=== PATIENT | female | born 1945 | race Caucasian/White ===

== ENCOUNTER 2020-06-04 15:13 | Inpatient (IN) | payer OTHER ==
--- OUTSIDE RECORDS SUMMARY | 2020-06-04 15:15 | XMS REPORT | Continuity of Care Document ---
:1945 Author Organization [facility] t Address [address] [place] [address] Care Team Providers Name Role Phone Unavailable Unavailable Unavailable Problems This patient has no known problems. Allergies, Adverse Reactions, Alerts Allergy Allergy Status Severity Reaction(s) Onset Inactive Treating Comm ents Source Name Type Date Date Clinician Bactrim Adverse Active Info Not [facility] Medications Ordered Filled Start Stop Current Ordering Indication Dosage Frequency Signature Comments Components Source Medication Medication Date Date Medication? Clinician (SIG) Name Name ProAir HFA ProAir HFA Yes Naresh [address] [facility] needed [facility] Symbicort Symbicort Yes Naresh [address] [facility] Fish Oil Fish Oil Yes Naresh [address] [facility] Clonidine Clonidine Yes Naresh [address] [facility] HCl HCl [facility] Lisinopril Lisinopril Yes Naresh [address] [facility] Tradjenta Tradjenta Yes Naresh [address] [facility] Atorvastati Atorvastati Yes Naresh [address] [facility] n Calcium n Calcium [facility] Chlorthalid Chlorthalid Yes Naresh [address] [facility] one one [facility] in the [facility] Amlodipine Amlodipine Yes Naresh [address] [facility] Besylate Besylate [facility] Aspir-81 Aspir-81 Yes Naresh [address] [facility] Metoprolol Metoprolol Yes Naresh [address] [facility] Tartrate Tartrate [facility] with food L [facility] Simvastatin Simvastatin Yes Naresh [address] [facility] [place] in the [facility] Procedures This patient has no known procedures. Encounters Start End Encounter Admission Attending Care Care Encounter Source Date/Time Date/Time Type Type Clinicians Facility Department ID 2020-04-20 2020-04-20 Outpatient [facility] [id number] [facility] 2020-04-07 2020-04-07 Outpatient [facility] [id number] [facility] 2020-04-07 2020-04-07 Outpatient [facility] [id number] [facility]00 [facility] Outpat[facility] Clinics 2020-01-04 2020-01-04 Outpatient [facility] [id number] [facility]00 [facility] Outpat[facility] ent Clinics 2019-11-29 2019-11-29 Outpatient [facility] [id number] [facility]00 [facility] Outpat[facility] ent Clinics 2019-10-04 2019-10-04 [facility] [id number] [facility] 10:45:00 10:45:00 t [employer] [facility] Medicine Outpati ent Clinics 2019-10-04 2019-10-04 [facility] [id number] [facility] 08:22:00 08:22:00 t [employer] [facility] Out[facility] ent Clinics 2019-09-03 2019-09-03 [facility] [id number] [address] 08:35:00 08:35:00 [email or web address] [facility] Medicine Outpati ent Clinics 2019-06-07 2019-06-07 [facility] [id number] [facility] 11:15:00 11:15:00 [place] [email or web address] [facility] - [facility] l Medicine Outpati ent Clinics 2019-05-04 2019-05-04 [facility] [id number] 15:13:00 15:13:00 [place] [email or web address] [facility] [facility] - [facility] Medicine l Medicine Outpati ent Clinics 2019-03-04 2019-03-04 [facility] [id number] [address] 13:30:00 13:30:00 [place] [email or web address] [facility] - [facility] l Medicine Outpati ent Clinics 2019-02-24 2019-02-24 [facility] [id number] [facility] 16:45:00 16:45:00 [place] [employer] [facility] - [facility] Medicine l Medicine Outpati ent Clinics 2019-01-13 2019-01-13 [facility] [id number] 16[facility]40:00 16:40:00 [place] [employer] [facility] - [facility] Medicine l Medicine Outpati ent Clinics 2018-11-12 2018-11-12 [facility] [id number] 09:00:00 09:00:00 t [place] [employer] [facility] [email or web address] [facility] Medicine l Medicine Outpati ent Clinics 2018-11-07 2018-11-07 [facility] [id number] [facility] 13:23:00 13:23:00 [place] [email or web address] [facility] - [facility] Medicine l Medicine Outpati ent Clinics 2018-11-06 2018-11-06 [facility] [id number] 13:55:00 13:55:00 t [place] [email or web address] [facility] - Drive [facility] Medicine l Medicine Outpati ent Clinics 2018-06-26 2018-06-26 [facility] [id number] [facility] 14:54:00 14:54:00 [place] [facility] - [facility] Medicine l Medicine Outpati ent Clinics 2018-03-24 2018-03-24 [facility] [id number] [facility] 09:30:00 09:30:00 t [place] [employer] [facility] - [facility] Medicine Outpati ent Clinics 2018-03-12 2018-03-12 [facility] [id number] 09[facility]58:00 09:58:00 t [place] [facility] [email or web address] [facility] Medicine Outpati ent Clinics 2017-09-11 2017-09-11 [facility] [id number] [address] 11:00:00 11:00:00 t [place] [facility] [email or web address] [facility] Medicine Outpati ent Clinics 2017-09-10 2017-09-10 [facility] [id number] 10:24:00 10:24:00 [place] [facility] [email or web address] [facility] Medicine Outpati ent Clinics 2017-06-26 2017-06-26 [facility] [id number] 08:55:00 08:55:00 t [place] [facility] [email or web address] [facility] Medicine Outpati ent Clinics 2017-05-13 2017-05-13 [facility] [id number] [address] 09:41:00 09:41:00 t [place] [email or web address] [facility] Medicine Outpati ent Clinics 2017-05-05 2017-05-05 [facility] [id number] 10:04:00 10:04:00 [place] [email or web address] [facility] Medicine Outpati ent Clinics 2017-05-05 2017-05-05 [facility] [id number] 09:00:00 09:00:00 [place] [email or web address] [facility] Medicine Outpati ent Clinics Results This patient has no known results.
[2020-06-04 16:30] LABS: Absolute Lymphocytes (CBC) 0.9 K/uL (0.7-4.9); Basophils % 0.3 % (0-1.3); Hematocrit 36.1 % (36.0-45.0); Lymphocytes % 8.4 % (15.3-44.8); MPV 7.8 fL (7.6-11.3); RBC Red Blood Cell Count 4.37 M/uL (3.86-4.86)
[2020-06-04] MEDS ORDERED: METHYLPREDNISOLONE 125 MG INJ ONE (16:38)
[2020-06-04] MEDS ORDERED: PIPER/TAZO/NS 3.375gm 3.375 GM/100 ML BAG ONE (16:39)
[2020-06-04] MEDS ORDERED: TETANUS & DIPHTHERIA TOX,ADULT 0.5 ML VIAL ONE (16:39)
[2020-06-04] MEDS ORDERED: LEVALBUTEROL 1.25 MG/3 ML NEB ONE ×2 (16:39→19:38)
[2020-06-04] MEDS ORDERED: FAMOTIDINE 20 MG/2 ML VIAL IV ONE (16:39)
[2020-06-04] MEDS ORDERED: NA CHLORIDE 0.9% 500 ML ONE (16:39)
[2020-06-04] MEDS ORDERED: IPRATROPIUM BROM 0.5MG/2.5ML ONE (16:39)
[2020-06-04 16:42] LABS: Protime INR 0.95
--- NOTE | 2020-06-04 16:55 | RAD REPORT ---
EXAM DESCRIPTION: CT - Head C Spine Cap Wo Con - 06/04/2020 4:33 pm TECHNIQUE: Computed axial tomography of the head and cervical spine was obtained. Coronal and sagitt al reconstruction was performed Computed axial tomography of the chest, abdomen and pelvis was obtained. Contrast was not requested. All CT scans are performed using dose optimization technique as appropriate and may include automated exposure control or mA/KV adjustment according to patient size. CLINICAL HISTORY: Head and neck injury with chest and abdominal pain status post fall COMPARISON: CT 2016 chest and abdomen FINDINGS: An intracranial bleed is not seen. Mild low-density areas within periventricular, deep subcortical wh ite matter indicate ischemic changes secondary to small vessel disease The ventricles are normal in caliber. An extra-axial fluid collection is not noted. . Fluid within the sinuses/mastoids is not seen. 12 millimeter lesion within the left parietal scalp. A cervical fracture is not seen. No dislocation is noted. The evaluation of mediastinum, leydi, vessels, solid organs and bowel are limited secondary to the lac k of contrast administration. A mediastinal hematoma is not noted. A pleural effusion is not seen. A lung contusion is not present. Coronary arterial calcifications The liver,spleen, pancreas, adrenals,kidneys and bladder do not demonstrate a traumatic injury. 5.6 centimeter left renal mass unchanged from 2016. Small left renal cysts and hyperdense cyst. Atrophic right kidney with mild hydronephrosis and hydroureter. The bladder is distended. Atheroscler otic disease. Small right diaphragmatic hernia contains fat. Small umbilical hernia. 2.6 centimeter l ipoma within the cecum IMPRESSION: 1. No acute intracranial abnormality is seen. 14 millimeter left parietal scalp lesion is nonspecific . 2. A cervical fracture is not visualized. If the patient continues have symptoms to suggest intracran ial/spinal cord pathology MRI be recommended 3. No traumatic abnormality involving the chest/abdomen/pelvis. 4. Bladder distention with mild right hydronephrosis
--- NOTE | 2020-06-04 16:55 | RAD REPORT ---
EXAM DESCRIPTION: Shante Single View06/04/2020 4:26 pm CLINICAL HISTORY: cough COMPARISON: none FINDINGS: Lungs are hyperaerated. The lungs appear clear of acute infiltrate. The heart is normal size IMPRESSION: No acute abnormalities displayed
--- NOTE | 2020-06-04 16:56 | RAD REPORT ---
EXAM DESCRIPTION: RAD - Ankle Left 2 View - 06/04/2020 4:26 pm CLINICAL HISTORY: Left ankle pain FINDINGS: No acute fracture or dislocation is seen. Soft tissue swelling. Bony density adjacent to t he medial malleolus likely chronic. A limited two view series was obtained
--- NOTE | 2020-06-04 16:56 | RAD REPORT ---
EXAM DESCRIPTION: RAD - Foot Left 2 View - 06/04/2020 4:26 pm CLINICAL HISTORY: Left Foot pain FINDINGS: No fracture or dislocation is seen. Osteoporosis Large calcaneal spur. Limited 2 series obtained
--- NOTE | 2020-06-04 16:56 | RAD REPORT ---
EXAM DESCRIPTION: RAD - Ankle Right 2 View - 06/04/2020 4:27 pm CLINICAL HISTORY: Ankle pain FINDINGS: Limited two view series obtained No fracture or dislocation. Soft tissue swelling. 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
--- NOTE | 2020-06-04 16:57 | RAD REPORT ---
EXAM DESCRIPTION: RAD - Foot Right 2 View - 06/04/2020 4:26 pm CLINICAL HISTORY: Foot pain FINDINGS: A limited 2 series obtained. No fracture or dislocation noted. Moderate calcaneal spurs. Prominent spurs extend along the dorsal aspect of the midfoot
[2020-06-04 16:58] LABS: ALT/SGPT 21 U/L (12-78); AST/SGOT 39 U/L (15-37); Albumin 2.9 g/dL (3.4-5.0); Alkaline Phosphatase 105 U/L (45-117); BUN Blood Urea Nitrogen 44 mg/dL (7-18); Bicarbonate 20 mmol/L (21-32); Bilirubin Direct 0.3 mg/dL (0-0.2); Bilirubin Total 0.9 mg/dL (0.2-1.0); Creatine Phosphokinase 771 U/L (26-192); Glucose Level 126 mg/dL (74-106); Lipase 220 U/L (73-393); Magnesium 2.1 mg/dL (1.8-2.4); NT PRO-BNP 935 pg/mL (<450); Potassium 4.2 mmol/L (3.5-5.1); Protein, Total 7.4 g/dL (6.4-8.2); Troponin (Emerg Dept Use Only) < 0.02 ng/mL (0.0-0.045)
[2020-06-04 17:01] LABS: CKMB Creatine Kinase MB 15.9 ng/mL (0.3-3.6); Sodium Level 113 mmol/L (136-145)
--- NOTE | 2020-06-04 17:31 | EDPHYS ---
Physician Documentation [facility] Name: Norma Weiss Age: 75 yrs Sex: Female : 1945 Arrival Date: 06/04/2020 Time: 15:17 Bed 5 Private MD: ED Physician Chadwick Daily HPI: 06/04 15:54 This 75 yrs old Female presents to ER via EMS with complaints of Fall Injury. khris 15:54 Details of fall: The patient fell from an upright position, while walking. Onset: The khris symptoms/episode began/occurred 5 day(s) ago. Associated injuries: The patient sustained injury to the head, neck injury, right leg and left leg, decreased range of motion, painful injury. Severity of symptoms: At their worst the symptoms were mild, moderate, in the emergency department the symptoms are unchanged. The patient has not experienced similar symptoms in the past. Historical: - Allergies: 15:26 No Known Allergies; ca1 - Home Meds: 15:26 amlodipine 10 mg tab 1 tab once daily [Active]; clonidine HCl 0.3 mg Oral tab 1 tab ca1 three times a day [Active]; chlothalidone 25 mg daily 1 tab daily [Active]; lisinopril 20 mg Oral tab 1 tab twice a day [Active]; metoprolol tartrate 50 mg Oral tab 1 tab 2 times per day [Active]; aspirin 81 mg Oral TbEC 1 tab once daily [Active]; Ventolin HFA 90 mcg/actuation Nebulizer HFAA 1 puff every 4 hours [Active]; Symbicort inhalation inhalation [Active]; atorvastatin 40 mg oral tab 1 tab once daily [Active]; Tradjenta 5 mg oral tab 1 tab once daily [Active]; - PMHx: 15:26 COPD; Hyperlipidemia; Hypertension; ca1 - PSHx: 15:26 Hysterectomy; Appendectomy; ca1 - Immunization history:: Client reports receiving the 2nd dose of the Covid vaccine, Client reports receiving the 1st dose of the Covid vaccine, Pneumococcal vaccine is not up to date, Flu vaccine is not up to date. - Social history:: Smoking status: Patient reports the use of cigarette tobacco products, smokes one pack cigarettes per day. ROS: 15:56 Constitutional: Negative for fever, chills, and weight loss, Eyes: Negative for injury, khris pain, redness, and discharge, ENT: Negative for injury, pain, and discharge, Neck: Negative for injury, pain, and swelling, Cardiovascular: Negative for chest pain, palpitations, and edema, Abdomen/GI: Negative for abdominal pain, nausea, vomiting, diarrhea, and constipation, Back: Negative for injury and pain, : Negative for injury, bleeding, discharge, and swelling, Neuro: Negative for headache, weakness, numbness, tingling, and seizure, Psych: Negative for depression, anxiety, suicide ideation, homicidal ideation, and hallucinations, Allergy/Immunology: Negative for hives, rash, and allergies, Endocrine: Negative for neck swelling, polydipsia, polyuria, polyphagia, and marked weight changes, Hematologic/Lymphatic: Negative for swollen nodes, abnormal bleeding, and unusual bruising. 15:56 Respiratory: Positive for cough, shortness of breath, wheezing, expiratory. 15:56 MS/extremity: Positive for decreased range of motion, pain, swelling, tenderness, of the right leg and left leg. 15:56 Skin: Positive for avulsion, ecchymosis, erythema, swelling, ulceration, diffusely. Exam: 15:56 Constitutional: This is a well developed, well nourished patient who is awake, alert, khris and in no acute distress. Head/Face: Normocephalic, atraumatic. Eyes: Pupils equal round and reactive to light, extra-ocular motions intact. Lids and lashes normal. Conjunctiva and sclera are non-icteric and not injected. Cornea within normal limits. Periorbital areas with no swelling, redness, or edema. ENT: Nares patent. No nasal discharge, no septal abnormalities noted. Tympanic membranes are normal and external auditory canals are clear. Oropharynx with no redness, swelling, or masses, exudates, or evidence of obstruction, uvula midline. Mucous membranes moist. Neck: Trachea midline, no thyromegaly or masses palpated, and no cervical lymphadenopathy. Supple, full range of motion without nuchal rigidity, or vertebral point tenderness. No Meningismus. Chest/axilla: Normal chest wall appearance and motion. Nontender with no deformity. No lesions are appreciated. Cardiovascular: Regular rate and rhythm with a normal S1 and S2. No gallops, murmurs, or rubs. Normal PMI, no JVD. No pulse deficits. Back: No spinal tenderness. No costovertebral tenderness. Full range of motion. Female : Normal external genitalia. Neuro: Awake and alert, GCS 15, oriented to person, place, time, and situation. Cranial nerves II-XII grossly intact. Motor strength 5/5 in all extremities. Sensory grossly intact. Cerebellar exam normal. Normal gait. Psych: Awake, alert, with orientation to person, place and time. Behavior, mood, and affect are within normal limits. 15:56 Respiratory: the patient does not display signs of respiratory distress, Respirations: labored breathing, is not present, Breath sounds: bronchial sounds, decreased breath sounds, rhonchi, that are mild, are scattered, wheezing: expiratory Respiratory rate: 18 15:56 Musculoskeletal/extremity: ROM: full active range of motion, full passive range of motion, Circulation is intact in all extremities. Sensation intact. Compartment Syndrome exam of affected extremity: is normal. DVT Exam: negative Homans' sign noted on exam, no appreciated bluish discoloration, no erythema, no increased warmth, pain, swelling, tenderness. 16:08 ECG was reviewed by the Attending Physician. [facility] Vital Signs: 15:17 BP 118 / 71; Pulse 71; Resp 18 S; Temp 97.8; Pulse Ox 93% on 2 lpm NC; Weight 68.04 kg ca1 (R); Height 5 ft. 6 in. (167.64 cm) (R); Pain 2/10; 16:19 BP 110 / 70; Pulse 78; Resp 19; Pulse Ox 95% on R/A; jl7 17:03 BP 119 / 76; Pulse 75; Resp 22; Pulse Ox 100% on Nebulizer Mask; ca1 17:57 BP 141 / 84; Pulse 73; Resp 22 S; Pulse Ox 92% on 2 lpm NC; ca1 18:35 BP 98 / 61; Pulse 73; Resp 20 S; Pulse Ox 93% on 2 lpm NC; ca1 19:35 BP 109 / 53; Pulse 81; Resp 19; Temp 97.8; Pulse Ox 98% on 10% Nebulizer Mask; rr5 15:17 Body Mass Index 24.21 (68.04 kg, 167.64 cm) ca1 MDM: 15:28 Patient medically screened. [facility] 16:01 Differential diagnosis: fracture, sprain, cellulitis, Anemia Bronchitis CHF khris exacerbation, Chronic Obstructive Pulmonary Disease. Antibiotic administration: zosyn. Differential diagnosis: abrasion, closed head injury, contusion, sprain, strain. The patient's Roy Deep Vein Thrombosis Score was calculated as follows: Imm/Surg in last 4 wks (1.5 Pts) Total Score: 0-2 Pts- Low Risk. The patient's pulmonary embolism risk score was calculated as follows: Total Score: 0-2 points. This patient was found to be at low risk for a pulmonary embolism by using the Well's assessment criteria. Immunization status: Pneumococcal vaccine: Not up to date Influenza vaccine: Data reviewed: vital signs, nurses notes, lab test result(s), EKG, radiologic studies, CT scan, plain films. Data interpreted: monitoring coordinator: rate is 71 beats/min, rhythm is regular, Pulse oximetry: on room air is 93 %. Test interpretation: by ED physician or midlevel provider: ECG, plain radiologic studies. Counseling: I had a detailed discussion with the patient and/or guardian regarding: the historical points, exam findings, and any diagnostic results supporting the discharge/admit diagnosis, lab results, radiology results. 06/04 15:50 Order name: Basic Metabolic Panel 06/04 15:50 Order name: CBC with Diff 06/04 15:50 Order name: LFT's 06/04 15:50 Order name: Magnesium 06/04 15:50 Order name: NT PRO-BNP; Complete Time: 17:13 06/04 15:50 Order name: PT-INR; Complete Time: 17:13 06/04 15:50 Order name: Troponin (emerg Dept Use Only); Complete Time: 17:13 06/04 15:50 Order name: Lipase; Complete Time: 17:13 06/04 15:50 Order name: CK; Complete Time: 17:13 06/04 15:50 Order name: Ckmb; Complete Time: 17:13 [facility] 06/04 15:50 Order name: Urine Culture [facility] 06/04 15:51 Order name: Basic Metabolic Panel; Complete Time: 17:13 EDOR 06/04 15:51 Order name: CBC with Automated Diff; Complete Time: 16:50 [facility] 06/04 15:51 Order name: Liver (Hepatic) Function; Complete Time: 17:13 EDOR 06/04 15:51 Order name: Magnesium; Complete Time: 17:13 EDOR 06/04 15:54 Order name: Blood Culture Adult (2) [facility] 06/04 15:54 Order name: Lactate; Complete Time: 17:13 [facility] 06/04 17:16 Order name: Osmolality, Serum; Complete Time: 18:44 [facility] 06/04 17:16 Order name: Urine Osmolality; Complete Time: 18:44 [facility] 06/04 17:16 Order name: Urine Sodium Random; Complete Time: 18:05 [facility] 06/04 17:52 Order name: Urine Dipstick--Ancillary (enter results) 06/04 17:52 Order name: Urine Dipstick-Ancillary; Complete Time: 18:03 EDMS 06/04 18:07 Order name: Procalcitonin; Complete Time: 18:44 la 06/04 18:09 Order name: Cortisol; Complete Time: 18:44 [facility] 06/04 18:25 Order name: SARS-COV-2 RT PCR; Complete Time: 18:44 EDMS 06/04 18:46 Order name: ABG la1 06/04 19:18 Order name: BMP rr5 06/04 20:04 Order name: Basic Metabolic Panel; Complete Time: 20:46 EDMS 06/04 20:33 Order name: ABG Arterial Blood Gas; Complete Time: 20:46 EDMS 06/04 15:50 Order name: XRAY Chest (1 view); Complete Time: 17:13 [facility] 06/04 23:50 Order name: CREATININE WHOLE BLOOD; Complete Time: 02:50 EDMS 06/05 04:58 Order name: CBC with Automated Diff; Complete Time: 02:50 EDMS 06/05 05:23 Order name: Comprehensive Metabolic Panel; Complete Time: 02:50 EDMS 06/05 05:23 Order name: Phosphorus; Complete Time: 02:50 EDMS 06/05 05:23 Order name: Creatine Phosphokinase; Complete Time: 02:50 EDMS 06/05 05:23 Order name: CKMB Creatine Kinase MB; Complete Time: 02:50 EDMS 06/05 05:23 Order name: Lipid Profile; Complete Time: 02:50 EDMS 06/05 05:23 Order name: T4 Free; Complete Time: 02:50 EDMS 06/05 05:23 Order name: Magnesium; Complete Time: 02:50 EDMS 06/05 05:23 Order name: Thyroid Stimulating Hormone; Complete Time: 02:50 EDMS 06/05 07:16 Order name: CBC Smear Scan; Complete Time: 02:50 EDMS 06/05 09:45 Order name: Uric Acid; Complete Time: 02:50 EDMS 06/05 16:24 Order name: Basic Metabolic Panel; Complete Time: 02:50 EDMS 06/06 04:37 Order name: CBC with Automated Diff EDMS 06/06 04:58 Order name: Hemoglobin A1c EDMS 06/06 05:06 Order name: Comprehensive Metabolic Panel EDMS 06/06 05:06 Order name: Uric Acid EDMS 06/06 05:06 Order name: Phosphorus EDMS 06/06 05:06 Order name: Creatine Phosphokinase EDMS 06/06 05:06 Order name: CKMB Creatine Kinase MB EDMS 06/06 05:06 Order name: Magnesium EDMS 06/06 05:37 Order name: Urinalysis W/Microscopic EDMS 06/06 05:46 Order name: UR SODIUM EDMS 06/06 05:50 Order name: UR CREAT EDMS 06/06 05:54 Order name: Osmolality, Serum EDMS 06/06 06:14 Order name: Osmolality, Urine EDMS 06/06 07:30 Order name: CBC Smear Scan EDMS 06/04 15:50 Order name: EKG; Complete Time: 15:51 khris 06/04 15:50 Order name: Cardiac monitoring; Complete Time: 16:22 khris 06/04 15:50 Order name: EKG - Nurse/Tech; Complete Time: 16:22 khris 06/04 15:50 Order name: IV Saline Lock; Complete Time: 16:22 khris 06/04 15:50 Order name: Labs collected and sent; Complete Time: 16:22 khris 06/04 15:50 Order name: O2 Per Protocol; Complete Time: 16:22 khris 06/04 15:50 Order name: O2 Sat Monitoring; Complete Time: 16:22 khris 06/04 15:50 Order name: Urine Dipstick-Ancillary (obtain specimen); Complete Time: 17:53 khris 06/04 15:54 Order name: Wound dressing; Complete Time: 19:06 khris 06/04 15:54 Order name: Wound Care; Complete Time: 19:06 khris 06/04 15:58 Order name: Foot Right 2 View; Complete Time: 17:13 EDMS 06/04 15:58 Order name: Foot Left 2 View; Complete Time: 17:13 EDMS 06/04 15:59 Order name: Ankle Right 2 View; Complete Time: 17:13 EDMS 06/04 15:59 Order name: Ankle Left 2 View; Complete Time: 17:13 EDMS 06/04 16:23 Order name: Head C Spine Cap Wo Con; Complete Time: 17:13 EDMS 06/04 17:16 Order name: Douglass; Complete Time: 17:52 khris 06/04 17:16 Order name: Seizure Precautions; Complete Time: 17:52 khris 06/04 18:00 Order name: Misc. Order: recheck BMP at 1999, Call Dr. Wolff with results; Complete la1 Time: 21:47 EC:08 Rate is 71 beats/min. Rhythm is regular. QRS Blair is Normal. TX interval is prolonged khris at 242 msec. QRS interval is normal. QT interval is normal. No Q waves. T waves are Normal. No ST changes noted. Clinical impression: NSR w/ Non-specific ST/T Changes, 1st degree heart block, and No evidence of ischemia. Interpreted by me. Reviewed by me. Administered Medications: 16:40 Drug: Tetanus-Diphtheria Toxoid Adult 0.5 ml {A/C Tech: [employer]. Exp: ca1 06/03/2021. Lot #: [id number]. } Route: IM; Site: right deltoid; 18:01 Follow up: Response: No adverse reaction ca1 16:45 Drug: Xopenex (levalbuterol) 2.5 mg Route: Inhalation; ca1 16:45 Drug: AtroVENT (ipratropium) Aerosol 0.5 mg Route: Inhalation; ca1 16:46 Drug: NS 0.9% 500 ml Route: IV; Rate: bolus; Site: right antecubital; ca1 18:00 Follow up: Response: No adverse reaction; IV Status: Completed infusion; IV Intake: ca1 500ml 16:47 Drug: Pepcid (famotidine) 20 mg Route: IVP; Site: right antecubital; ca1 18:00 Follow up: Response: No adverse reaction ca1 16:50 Drug: SOLU-Medrol (methylPrednisoLONE) 125 mg Route: IVP; Site: right antecubital; ca1 18:01 Follow up: Response: No adverse reaction ca1 16:52 Drug: Zosyn 3.375 grams Route: IVPB; Infused Over: 60 mins; Site: right antecubital; ca1 18:00 Follow up: Response: No adverse reaction; IV Status: Completed infusion; IV Intake: ca1 100ml 17:49 Not Given (Duplicate Order): NS 0.9% 1000 ml IV at 125 ml/hr continuous khris 17:49 Drug: NS 0.9% 1000 ml Route: IV; Rate: 75 ml/hr; Site: right forearm; ca1 18:01 Follow up: Response: No adverse reaction; IV Status: Infusion continued upon admission ca1 17:54 Drug: Thiamine 100 mg Route: IV; Rate: bolus; Site: right antecubital; ca1 18:01 Follow up: Response: No adverse reaction; IV Status: Completed infusion ca1 19:34 Drug: Xopenex (levalbuterol) 2.5 mg Route: Inhalation; rr5 Disposition: 06/04/20 17:30 Hospitalization ordered by July Walter for Inpatient Admission. Preliminary diagnosis are Hypo-osmolality and hyponatremia, Acute kidney failure - insufficency, Retention of urine, Edema, unspecified, Blister (nonthermal) of ankle, Blister (nonthermal), left foot, Blister (nonthermal), right foot, Tobacco abuse counseling, Tobacco use, Chronic obstructive pulmonary disease, unspecified, Rhabdomyolysis, Urinary tract infection, site not specified. - Bed requested for [facility] ER HOLD. - Status is Inpatient Admission. ss - Condition is Serious. - Problem is new. - Symptoms have improved. Signatures: Dispatcher [employer] EDMS Chadwick Daily MD MD cha Smirch, Shelby RN RN ss Jakub Khan, PUBLIC HEALTH CLINICAL NURSE SPECIALIST-C PUBLIC HEALTH CLINICAL NURSE SPECIALIST-Cla1 Maura Alvarez RN RN cg Roque, Raymond, RN RN rr5 Alejandra Darling RN RN ca1 Corrections: (The following items were deleted from the chart) 15:58 15:51 Foot Right 3 View+RAD.RAD.BRZ ordered. EDMS EDMS 15:58 15:51 Foot Left 3 View+RAD.RAD.BRZ ordered. EDMS EDMS 15:59 15:52 Ankle Right 3 View+RAD.RAD.BRZ ordered. EDMS EDMS 15:59 15:52 Ankle Left 3 View+RAD.RAD.BRZ ordered. EDMS EDMS 16:23 15:54 Head C Spine CAP W Con+CT.RAD.BRZ ordered. [facility] EDOR 17:39 15:54 CORONAVIRUS+MR.LAB.BRZ ordered. [facility] 17:52 17:30 Hospitalization Ordered by Dennys Estevez MD for Inpatient Admission. Preliminary [facility] diagnosis is Hypo-osmolality and hyponatremia; Acute kidney failure - insufficency; Retention of urine; Edema, unspecified; Blister (nonthermal) of ankle; Blister (nonthermal), left foot; Blister (nonthermal), right foot; Tobacco abuse counseling; Tobacco use; Chronic obstructive pulmonary disease, unspecified; Rhabdomyolysis. Bed requested for Intensive Care Unit. Status is Inpatient Admission. Condition is Serious. Problem is new. Symptoms have improved. [facility] 17:59 17:52 06/04/2020 17:30 Hospitalization Ordered by Dennys Estevez MD for Inpatient khris Admission. Preliminary diagnosis is Hypo-osmolality and hyponatremia; Acute kidney failure - insufficency; Retention of urine; Edema, unspecified; Blister (nonthermal) of ankle; Blister (nonthermal), left foot; Blister (nonthermal), right foot; Tobacco abuse counseling; Tobacco use; Chronic obstructive pulmonary disease, unspecified; Rhabdomyolysis; Urinary tract infection, site not specified. Bed requested for Intensive Care Unit. Status is Inpatient Admission. Condition is Serious. Problem is new. Symptoms have improved. [facility] :34 17:59 06/04/2020 17:30 Hospitalization Ordered by July Walter MD for Inpatient Admission. Preliminary diagnosis is Hypo-osmolality and hyponatremia; Acute kidney failure - insufficency; Retention of urine; Edema, unspecified; Blister (nonthermal) of ankle; Blister (nonthermal), left foot; Blister (nonthermal), right foot; Tobacco abuse counseling; Tobacco use; Chronic obstructive pulmonary disease, unspecified; Rhabdomyolysis; Urinary tract infection, site not specified. Bed requested for Intensive Care Unit. Status is Inpatient Admission. Condition is Serious. Problem is new. Symptoms have improved. [facility] 06/06 09:28 06/04 19:34 06/04/2020 17:30 Hospitalization Ordered by July Walter MD for Inpatient Admission. Preliminary diagnosis is Hypo-osmolality and hyponatremia; Acute kidney failure - insufficency; Retention of urine; Edema, unspecified; Blister (nonthermal) of ankle; Blister (nonthermal), left foot; Blister (nonthermal), right foot; Tobacco abuse counseling; Tobacco use; Chronic obstructive pulmonary disease, unspecified; Rhabdomyolysis; Urinary tract infection, site not specified. Bed requested for [facility] ER HOLD. Status is Inpatient Admission. Condition is Serious. Problem is new. Symptoms have improved. cg
--- NOTE | 2020-06-04 17:31 | ER ---
Nurse's Notes [facility] Name: Norma Weiss Age: 75 yrs Sex: Female : 1945 Arrival Date: 06/04/2020 Time: 15:17 Bed 5 Private MD: Diagnosis: Hypo-osmolality and hyponatremia;Acute kidney failure-insufficency;Retention of urine;Edema, unspecified;Blister (nonthermal) of ankle;Blister (nonthermal), left foot;Blister (nonthermal), right foot;Tobacco abuse counseling;Tobacco use;Chronic obstructive pulmonary disease, unspecified;Rhabdomyolysis;Urinary tract infection, site not specified Presentation: 06/04 15:17 Chief complaint: Patient states: "fell when my ankles gave out on me 2 days ago, now I ca1 can't put pressure on them and walk on them" EMS states: Called for difficulty walking and pain on иван ankles after a fall 2 days [employer] PREPAR[employer]. Reports blisters on иван legs started after the fall. Upon arrival on scene pt SPO2 at 87% RA, pt has HX of COPD and NOT on home O2. O2 provided at 2lpm via NC, SPO2 went up to 97%. Denies SOB. Coronavirus screen: Client denies travel out of the [place] in the last 14 days. At this time, the client does not indicate any symptoms associated with coronavirus-19. Ebola Screen: Patient negative for fever greater than or equal to 101.5 degrees Fahrenheit, and additional compatible Ebola Virus Disease symptoms Patient denies exposure to infectious person. Patient denies travel to an Ebola-affected area in the 21 days before illness onset. No symptoms or risks identified at this time. Initial Sepsis Screen: Does the patient meet any 2 criteria? No. Patient's initial sepsis screen is negative. Does the patient have a suspected source of infection? No. Patient's initial sepsis screen is negative. Risk Assessment: Do you want to hurt yourself or someone else? Patient reports no desire to harm self or others. Onset of symptoms was June 04, 2020. 15:17 Method Of Arrival: [facility] ca1 15:17 Acuity: JEMAL 3 ca1 Triage Assessment: 15:26 General: PCP Dr. Naresh Gonzales. ca1 Historical: - Allergies: 15:26 No Known Allergies; ca1 - Home Meds: 15:26 amlodipine 10 mg tab 1 tab once daily [Active]; clonidine HCl 0.3 mg Oral tab 1 tab ca1 three times a day [Active]; chlothalidone 25 mg daily 1 tab daily [Active]; lisinopril 20 mg Oral tab 1 tab twice a day [Active]; metoprolol tartrate 50 mg Oral tab 1 tab 2 times per day [Active]; aspirin 81 mg Oral TbEC 1 tab once daily [Active]; Ventolin HFA 90 mcg/actuation Nebulizer HFAA 1 puff every 4 hours [Active]; Symbicort inhalation inhalation [Active]; atorvastatin 40 mg oral tab 1 tab once daily [Active]; Tradjenta 5 mg oral tab 1 tab once daily [Active]; - PMHx: 15:26 COPD; Hyperlipidemia; Hypertension; ca1 - PSHx: 15:26 Hysterectomy; Appendectomy; ca1 - Immunization history:: Client reports receiving the 2nd dose of the Covid vaccine, Client reports receiving the 1st dose of the Covid vaccine, Pneumococcal vaccine is not up to date, Flu vaccine is not up to date. - Social history:: Smoking status: Patient reports the use of cigarette tobacco products, smokes one pack cigarettes per day. Screenin:19 Abuse screen: Denies threats or abuse. Denies injuries from another. Nutritional jl7 screening: No deficits noted. Tuberculosis screening: No symptoms or risk factors identified. 16:19 Fall Risk Fall in past 12 months (25 points). No secondary diagnosis (0 pts). IV access jl7 (20 points). Ambulatory Aid- Furniture (30 pts.). Gait- Weak (10 pts.). Mental Status- Overestimates/Forgets Limitations (15 pts.). Total Peoples Fall Scale indicates High Risk Score (45 or more points). Fall prevention measures have been instituted. Side Rails Up X 2 Placed Close to Nursing Station Frequent Obs/Assessments Occuring Family Present and informed to notify staff if the need to leave the bedside As available patient and family educated on Fall Prevention Program and Strategies. Assessment: 16:20 General: Appears in no apparent distress. uncomfortable, unkempt, Behavior is calm, ca1 cooperative, appropriate for age. Pain: Complains of pain in right foot, left foot, right ankle and , L ankle left leg Pain currently is 3 out of 10 on a pain scale. Pain began 2-3 days ago. Aggravated by weight bearing. Neuro: Level of Consciousness is awake, alert, obeys commands, Oriented to person, place, time, situation. Cardiovascular: Heart tones S1 S2 present Capillary refill < 3 seconds Patient's skin is warm and dry. Rhythm is sinus rhythm. Respiratory: Reports cough that is Airway is patent Respiratory effort is even, unlabored, Respiratory pattern is regular, symmetrical, Breath sounds are clear bilaterally. Breath sounds are diminished bilaterally. GI: Abdomen is round non-distended, Bowel sounds present X 4 quads. Abd is soft and non tender X 4 quads. : No signs and/or symptoms were reported regarding the genitourinary system. EENT: No signs and/or symptoms were reported regarding the EENT system. Derm: Skin is fragile, is thin, with poor turgor has blisters on иван lower extremities. Wound noted right elbow and left arm Wound is greenish drainage noted on dressing applied from home. Musculoskeletal: Circulation, motion, and sensation intact. Capillary refill is > 3 seconds, in bilateral Swelling present in right foot and left foot. 17:03 Reassessment: Patient appears in no apparent distress at this time. Patient and/or ca1 family updated on plan of care and expected duration. Pain level reassessed. Patient is alert, oriented x 3, equal unlabored respirations, skin warm/dry/pink. 17:57 Reassessment: Patient appears in no apparent distress at this time. Patient and/or ca1 family updated on plan of care and expected duration. Pain level reassessed. Patient is alert, oriented x 3, equal unlabored respirations, skin warm/dry/pink. 18:35 Reassessment: Patient appears in no apparent distress at this time. Patient and/or ca1 family updated on plan of care and expected duration. Pain level reassessed. Patient is alert, oriented x 3, equal unlabored respirations, skin warm/dry/pink. Jakub Khan, PHYSICAL BIOCHEMIST at bedside. 19:35 General: Appears in no apparent distress. comfortable, Behavior is calm, cooperative, rr5 appropriate for age. Neuro: Level of Consciousness is awake, obeys commands, Oriented to person, place, time, situation. Cardiovascular: Capillary refill < 3 seconds Patient's skin is warm and dry. Edema. Respiratory: Airway is patent Respiratory effort is even, unlabored, Respiratory pattern is regular, symmetrical. Derm: Skin temperature is warm Wound noted right arm, left arm, right leg and left leg Wound is skin peeled bilateral forearm, blisters bilateral foot. Musculoskeletal: Capillary refill is > 3 seconds. 20:10 Reassessment: Patient appears in no apparent distress at this time. Patient is alert, rr5 oriented x 3, equal unlabored respirations, skin warm/dry/pink. 21:28 Reassessment: spoke to dr. healy over the phone relayed the NA 118, with telephone rr5 order decreased NS to 50 ml/Hr and repeat BMP at 0500H. Vital Signs: 15:17 BP 118 / 71; Pulse 71; Resp 18 S; Temp 97.8; Pulse Ox 93% on 2 lpm NC; Weight 68.04 kg ca1 (R); Height 5 ft. 6 in. (167.64 cm) (R); Pain 2/10; 16:19 BP 110 / 70; Pulse 78; Resp 19; Pulse Ox 95% on R/A; jl7 17:03 BP 119 / 76; Pulse 75; Resp 22; Pulse Ox 100% on Nebulizer Mask; ca1 17:57 BP 141 / 84; Pulse 73; Resp 22 S; Pulse Ox 92% on 2 lpm NC; ca1 18:35 BP 98 / 61; Pulse 73; Resp 20 S; Pulse Ox 93% on 2 lpm NC; ca1 19:35 BP 109 / 53; Pulse 81; Resp 19; Temp 97.8; Pulse Ox 98% on 10% Nebulizer Mask; rr5 15:17 Body Mass Index 24.21 (68.04 kg, 167.64 cm) ca1 ED Course: 15:17 Patient arrived in ED. ca1 15:23 Triage completed. ca1 15:26 Arm band placed on right wrist. ca1 15:27 Alejandra Darling, ITALO is Primary Nurse. ca1 15:28 Chadwick Daily MD is Attending Physician. khris 15:38 Patient has correct armband on for positive identification. Bed in low position. Call mh5 light in reach. Side rails up X2. Pillow given. loin puller on. Pulse ox on. NIBP on. 16:05 First set of blood cultures drawn by nm. Inserted saline lock: 20 gauge in right jl7 antecubital area, using aseptic technique. Blood collected. 16:10 Inserted saline lock: 20 gauge in left forearm, using aseptic technique. Blood jl7 collected. 16:10 Initial lab(s) drawn, by me, sent to lab. Second set of blood cultures drawn. jl7 16:20 No provider procedures requiring assistance completed. ca1 16:26 XRAY Chest (1 view) In Process Unspecified. EDMS 16:26 Foot Right 2 View In Process Unspecified. EDMS 16:26 Foot Left 2 View In Process Unspecified. EDMS 16:26 Ankle Right 2 View In Process Unspecified. EDMS 16:26 Ankle Left 2 View In Process Unspecified. EDMS 16:33 Head C Spine Cap Wo Con In Process Unspecified. EDMS 17:28 Dennys Estevez MD is Hospitalizing Provider. khris 17:51 Urine Sodium Random Sent. mh5 17:51 Urine Osmolality Sent. 5 17:52 Urine Culture Sent. 5 17:53 Urine Dipstick-Ancillary Sent. 5 17:53 Urine Dipstick--Ancillary (enter results) Sent. 5 17:56 Douglass cath inserted, using sterile technique, 18 Fr., by ED staff, balloon inflated, to ca1 gravity drainage, urine specimen collected. returned momo urine. Patient tolerated well. 17:59 July Walter MD is Hospitalizing Provider. khris 19:09 Wound care: to laceration located on palmar aspect of left forearm and right elbow was ca1 cleaned with Hibiclens, dressed with Neosporin, 4X4s, Patient tolerated well. 20:18 IV is patent, with fluids infusing freely, Patient admitted, IV remains in place. rv 06/05 08:13 BMP Sent. sv 08:14 Basic Metabolic Panel Sent. sv 08:14 CBC with Diff Sent. sv 08:14 LFT's Sent. sv 08:14 Magnesium Sent. sv 13:28 Primary Nurse role handed off by Alejandra Darling RN sv 13:28 Cecelia Barnett, ITALO is Primary Nurse. sv 19:23 Primary Nurse role handed off by Cecelia Barnett, ITALO 2 06/06 07:08 Chelsea Solorio, ITALO is Primary Nurse. jl7 Administered Medications: 06/04 16:40 Drug: Tetanus-Diphtheria Toxoid Adult 0.5 ml {Occupational Therapy Assist: [employer]. Exp: ca1 06/03/2021. Lot #: [id number]. } Route: IM; Site: right deltoid; 18:01 Follow up: Response: No adverse reaction ca1 16:45 Drug: Xopenex (levalbuterol) 2.5 mg Route: Inhalation; ca1 16:45 Drug: AtroVENT (ipratropium) Aerosol 0.5 mg Route: Inhalation; ca1 16:46 Drug: NS 0.9% 500 ml Route: IV; Rate: bolus; Site: right antecubital; ca1 18:00 Follow up: Response: No adverse reaction; IV Status: Completed infusion; IV Intake: ca1 500ml 16:47 Drug: Pepcid (famotidine) 20 mg Route: IVP; Site: right antecubital; ca1 18:00 Follow up: Response: No adverse reaction ca1 16:50 Drug: SOLU-Medrol (methylPrednisoLONE) 125 mg Route: IVP; Site: right antecubital; ca1 18:01 Follow up: Response: No adverse reaction ca1 16:52 Drug: Zosyn 3.375 grams Route: IVPB; Infused Over: 60 mins; Site: right antecubital; ca1 18:00 Follow up: Response: No adverse reaction; IV Status: Completed infusion; IV Intake: ca1 100ml 17:49 Not Given (Duplicate Order): NS 0.9% 1000 ml IV at 125 ml/hr continuous khris 17:49 Drug: NS 0.9% 1000 ml Route: IV; Rate: 75 ml/hr; Site: right forearm; ca1 18:01 Follow up: Response: No adverse reaction; IV Status: Infusion continued upon admission ca1 17:54 Drug: Thiamine 100 mg Route: IV; Rate: bolus; Site: right antecubital; ca1 18:01 Follow up: Response: No adverse reaction; IV Status: Completed infusion ca1 19:34 Drug: Xopenex (levalbuterol) 2.5 mg Route: Inhalation; rr5 Intake: 18:00 IV: 500ml; Total: 500ml. ca1 18:00 IV: 100ml; Total: 600ml. ca1 Output: 21:26 Urine: 1100ml (Douglass); Total: 1100ml. rr5 Outcome: 17:30 Decision to Hospitalize by Provider. khris 20:18 Admitted to ER Hold. Please see [facility] for further documentation. rv 20:18 Condition: stable 20:18 Instructed on the need for admit. 06/06 09:28 Patient left the ED. Signatures: Dispatcher [employer] EDElsa Santos, RN RN Chadwick Park MD MD cha Smirch, Shelby, RN RN ss Martinez, Maria 5 Chelsea Solorio RN RN jl7 Dave Forman mw2 Rambo Zeng RN RN rv Diego Mehta RN RN rr5 AcobAlejandra RN RN ca1 Corrections: (The following items were deleted from the chart) 06/04 18:00 17:57 BP 141 / 84; Pulse 73bpm; Resp 22bpm; Spontaneous; Pulse Ox 95% 2 lpm Nasal ca1 Cannula; ca1
[2020-06-04 18:02] LABS: Urine Blood TRACE (Negative); Urine Glucose NEGATIVE (Negative); Urine Protein 2+ (Negative); Urine pH 5.5 (5.0-7.0)
[2020-06-04] MEDS ORDERED: NA CHLORIDE 0.9% 1,000 ML ONE (18:04)
[2020-06-04] MEDS ORDERED: THIAMINE 200 MG/2 ML INJ ONE (18:10)
[2020-06-04] MEDS ORDERED: ONDANSETRON 4 MG/2 ML VIAL IV PRN (20:10)
[2020-06-04] MEDS ORDERED: NA CHLORIDE 0.9% 1,000 ML IV SCH ×2 (20:10→22:00)
[2020-06-04] MEDS ORDERED: ACETAMINOPHEN 500 MG TAB PO PRN (20:10)
[2020-06-04 20:31] LABS: Arterial Blood Carboxyhemoglob 2.8 % (0-1.5); Blood Gas Oxyhemoglobin 87.9 % (94-97); Blood O2 Saturation 91.6 % (92-98.5)
--- NOTE | 2020-06-04 20:57 | P.HP ---
Certification for Inpatient Patient admitted to: Inpatient Patient will require the following post-hospital care: None Practitioner: I am a practitioner with admitting privileges, knowledge of patient current condition, hospital course, and medical plan of care. Services: Services provided to patient in accordance with Admission requirements found in Title 42 Section 412.3 of the Code of Federal Regulations Patient History Date of Service: 06/04/20 Reason for admission: Hyponatremia History of Present Illness: 75-year-old female with history of COPD, hyperlipidemia, hypertension presents emergency department for fall. Patient reportedly fell approximately 2 days prior and having pain in both of her ankles/lower extremities, patient also noted to be 87% on room air upon EMS arrival. Patient evaluated in the emergency department, labs significant for sodium 113 chloride 83, CO2 20, glucose 126 creatinine 1.84 GFR 27 BUN 40 serum osmolality 260 urine is nitrite positive pro calcitonin mildly elevated 0.49 B and P 985 CPK 771 CK MB 15.9 urine sodium 32 cortisol 55.[address] head C-spine chest abdomen pelvis without contrast demonstrates nonspecific scalp lesion, 5.6 cm left renal mass which is unchanged from previous 2016 study, atrophic right kidney with mild hydronephrosis and hydroureter with distended bladder. 2.6 cm lipoma within the cecum. Patient had Douglass catheter placed with 1 L of retained urine output, patient was given 500 cc normal saline bolus and Nephrology was consulted, fluids were switched over to NS at 75 cc/hour, repeat chemistry obtained 2 hr later demonstrates sodium 118 CO2 18 creatinine 1.78 ABG obtained demonstrating pH 7.3 PO2 69 HCO3 16.9. Patient currently lives alone and has been having difficulty getting around, family concern for well-being. Patient reportedly with poor p.o. intake taking in very little food/fluids at home. Patient does not consume alcohol, was aware of renal mass, has been told in the past is likely cancer is at that time patient declined any further workup/surgical/chemotherapy. Patient reported that time that she did not want to be on dialysis. Mass has not changed on CT. ED provider wishes to admit for further evaluation and management. Allergies No Known Allergies Allergy (Unverified 11/12/11 19:53) - Past Medical/Surgical History -: COPD -: Hypertension -: Hyperlipidemia -: Unknown Psychosocial/ Personal History: Patient lives alone, is unemployed - Family History Sister -: Cancer Notes: Rheumatoid arthritis - Social History Smoking Status: Heavy Tobacco smoker (>10 cigarettes/day) Alcohol use: No CD- Drugs: No Caffeine use: Yes Place of Residence: Home Review of Systems General: Weakness, Malaise Respiratory: Cough, Shortness of Breath, Wheezing Physical Examination - Vital Signs Temperature: 98 F Blood Pressure: 114/56 Pulse: 82 Respirations: 16 Pulse Ox (%): 96 - Physical Exam General: Alert, In no apparent distress, Oriented x3, Other (Drowsy, lethargic) HEENT: Other (Mucous membranes dry) Neck: Supple Respiratory: Expiratory wheezes (Bilaterally), Rhonchi/gurgles Cardiovascular: No edema, Normal S1 S2 Capillary refill: <2 Seconds Gastrointestinal: Normal bowel sounds, Soft and benign, No tenderness, No masses, No rebound Musculoskeletal: No contractures, No erythema, No tenderness Integumentary: Other (Blisters and venous stasis ulcerations noted to bilateral lower extremities without significant surrounding cellulitis.) Neurological: Abnormal gait (Patient with extremely weak 8 reported by family members, has not been able to get out and do much over the course the last few days) - Studies Laboratory Data (last 24 hrs) 06/04/20 16:10: PT 10.9, INR 0.95 06/04/20 16:10: WBC 11.10 H, Hgb 12.1, Hct 36.1, Plt Count 406 06/04/20 16:10: Sodium 113 L*, Potassium 4.2, BUN 44 H, Creatinine 1.84 H, Glucose 126 H, Magnesium 2.1, Total Bilirubin 0.9, AST 39 H, ALT 21, Alkaline Phosphatase 105, Lipase 220 Assessment and Plan - Plan Assessment Severe hyponatremia-likely chronic Acute on chronic respiratory failure with hypoxia Metabolic acidosis likely secondary ATN/PRAVEEN Urinary tract infection, urinary retention Hypertension, hyperlipidemia Weakness and deconditioning Tobacco abuse Plan Severe hyponatremia-likely chronic: Nephrology consulted for assistance in managing severe hyponatremia, patient had visit in 2017 with sodium of 213 when she left AMA and did not seek further treatment. Patient likely with chronic hyponatremia, possibly related to dietary intake, family reports patient eats very little throughout the day, patient does not admit to drinking alcohol/beer. Full workup pending. Repeat chemistry shows 4 point improvement in sodium from 114-118. At this time plan is for continuation of normal saline at 75 cc/hour, appreciate further guidance from nephrology in this regard. DVT prophylaxis with Lovenox. Acute on chronic respiratory failure with hypoxia: Patient smokes approximately 3 packs per day, unaware of home medications. Patient 88% on room air, ABG ordered. Continue with IV steroids, nebs, inhalers. Daily room air saturations, patient may require home oxygen at time of discharge. Metabolic acidosis likely secondary ATN/PRAVEEN: Nephrology consulted, continue with normal saline at 75 cc/hour. Adjust as stated by nephrology. Patient with some underlying CKD. Trend CPK/CK MB levels. Urinary tract infection, urinary retention: Douglass catheter in place, draining freely. Hypertension, hyperlipidemia: Obtain and continue home medications as appropriate. Weakness and deconditioning: Physical therapy consulted for evaluation. Patient lives alone and is very weak. Tobacco abuse: 3 pack per day smoker, Nicoderm patch ordered, discussed need for tobacco cessation. Discharge Plan: Home Plan to discharge in: Greater than 2 days - Advance Directives Does patient have a Living Will: No Does patient have a Durable POA for Healthcare: No - Code Status/Comfort Care Code Status Assessed: Yes (Full code) Critical Care: No Time Spent Managing Pts Care (In Minutes): 55
[2020-06-04] MEDS: DULERA 100/5 (MOMETASONE/FORMOTEROL) INHALER IH SCH (21:00)
[2020-06-04] MEDS ORDERED: DULERA 100/5 (MOMETASONE/FORMOTEROL) INHALER IH ONE (22:24)
[2020-06-05] MEDS ORDERED: METHYLPREDNISOLONE 125 MG INJ IV SCH (01:00)
[2020-06-05 04:56] LABS: Absolute Lymphocytes (CBC) 0.3 K/uL (0.7-4.9); Basophils % 0.1 % (0-1.3); Hematocrit 33.8 % (36.0-45.0); Lymphocytes % 3.7 % (15.3-44.8); MPV 7.6 fL (7.6-11.3); RBC Red Blood Cell Count 4.08 M/uL (3.86-4.86)
[2020-06-05 05:19] LABS: Albumin 2.4 g/dL (3.4-5.0); Bilirubin Total 0.6 mg/dL (0.2-1.0); Magnesium 2.1 mg/dL (1.8-2.4); Phosphorus 5.1 mg/dL (2.5-4.9); Potassium 4.1 mmol/L (3.5-5.1); Protein, Total 6.5 g/dL (6.4-8.2); Thyroid Stimulating Hormone 0.443 uIU/mL (0.360-3.740)
[2020-06-05 05:22] LABS: CKMB Creatine Kinase MB 17.5 ng/mL (0.3-3.6)
[2020-06-05 07:16] LABS: Blood Morphology Comment NOT SEEN (NOT SEEN); Platelet Estimate ADEQ; White Blood Cell Scan OK (OK)
--- NOTE | 2020-06-05 07:53 | EKG ---
Test Date: 2020-06-04 Test Time: 15:52:05 Cellar Pumper: MICHEL MEASUREMENT RESULTS: Intervals: Rate: 68 DC: 242 QRSD: 100 QT: 434 QTc: 461 [place]: P: 29 DC: 242 QRS: 51 T: 89 INTERPRETIVE STATEMENTS: Sinus rhythm with 1st degree AV block with premature atrial complexes Low voltage QRS Possible Inferior infarct, age undetermined Abnormal ECG Compared to ECG 08/24/2016 12:01:01 Atrial premature complex(es) now present Low QRS voltage now present Ventricular premature complex(es) no longer present Myocardial infarct finding still present Electronically Signed On 06-05-20 07:51:58 CDT by John York
[2020-06-05] MEDS ORDERED: FUROSEMIDE 20 MG/ 2ML VIAL IV ONE (08:31)
--- NOTE | 2020-06-05 08:31 | P.CNS ---
Date of Consult: 06/05/20 Chief Complaint: Hyponatremia History of Present Illness: Patient is 75 years of age with a history of COPD hypertension presented to the emergency room with hypoxemia lower extremity edema denies any diarrhea vomiting nausea this found to be very hypernatremic eyes any prior history of hyponatremia he is very alert oriented responsive cooperative denies diuretic abuse Patient has a mass in the kidney chronic Aliza by herself very heavy smoker Allergies No Known Allergies Allergy (Unverified 11/12/11 19:53) - Past Medical/Surgical History -: COPD -: Hypertension -: Hyperlipidemia -: Unknown Psychosocial/ Personal History: Patient lives alone, is unemployed - Family History Sister Medical History: Cancer Notes: Rheumatoid arthritis - Social History Alcohol use: No CD- Drugs: No Caffeine use: Yes Place of Residence: Home Review of Systems General: Weakness Respiratory: Cough, Shortness of Breath Physical Examination Temp Pulse Resp BP Pulse Ox 98 F 85 19 109/52 L 96 06/04/20 21:03 06/05/20 05:00 06/05/20 05:00 06/05/20 05:00 06/05/20 05:00 General: Alert, Oriented x3 Respiratory: Expiratory wheezes Cardiovascular: Normal S1 S2, Edema Gastrointestinal: Normal bowel sounds, Soft and benign Laboratory Data (last 24 hrs) 06/04/20 16:10: PT 10.9, INR 0.95 06/04/20 16:10: WBC 11.10 H, Hgb 12.1, Hct 36.1, Plt Count 406 06/04/20 16:10: Sodium 113 L*, Potassium 4.2, BUN 44 H, Creatinine 1.84 H, Glucose 126 H, Magnesium 2.1, Total Bilirubin 0.9, AST 39 H, ALT 21, Alkaline Phosphatase 105, Lipase 220 - Problems (1) Hyponatremia Current Visit: Yes Status: Acute Plan: Patient is 75 years of age admitted with severe hyponatremia patient was started on low-dose of IV fluids hyponatremia slightly worse urine his sodium is greater than 30 urine urine osmolalities also greater than 100 tsh is normal will Dc IV fluids start on diuretics will try and fluid restriction Lasix it appears patient has had hyponatremia before 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 prednisone and bronchodilators Qualifiers: Emphysema type: unspecified
[2020-06-05] MEDS ORDERED: NA CHLORIDE 0.9% 1,000 ML ONE (08:56)
[2020-06-05] MEDS: NICOTINE 21 MG/PAT TD SCH (09:00)
[2020-06-05] MEDS ORDERED: CEFTRIAXONE/SWI 1gm 1 GM/50 ML SYR IV SCH (09:00)
[2020-06-05] MEDS: predniSONE 20 MG TAB PO SCH ×2 (09:00→21:00)
[2020-06-05] MEDS: DULERA 100/5 (MOMETASONE/FORMOTEROL) INHALER IH SCH ×2 (09:00→21:00)
[2020-06-05] MEDS: ENOXAPARIN 30 MG/0.3 ML SQ SCH (09:00)
[2020-06-05] MEDS: ALBUTEROL 2.5 MG/3 ML NEB SOL NEB SCH ×3 (09:34→19:40)
[2020-06-05] MEDS: IPRATROPIUM BROM 0.5MG/2.5ML NEB SCH ×3 (09:34→19:40)
[2020-06-05] MEDS ORDERED: IPRATROPIUM BROM 0.5MG/2.5ML ONE ×2 (09:51→19:59)
[2020-06-05] MEDS ORDERED: ALBUTEROL 2.5 MG/3 ML NEB SOL ONE ×2 (09:51→19:59)
[2020-06-05] MEDS ORDERED: PNEUMOCOCCAL VACCINE 0.5 ML IMVAC ONE (10:00)
[2020-06-05] MEDS ORDERED: FUROSEMIDE 20 MG/ 2ML VIAL ONE (10:28)
[2020-06-05] MEDS ORDERED: ENOXAPARIN 30 MG/0.3 ML SQ ONE (10:28)
[2020-06-05] MEDS ORDERED: NICOTINE 21 MG/PAT TD ONE (10:28)
[2020-06-05] MEDS ORDERED: predniSONE 20 MG TAB ONE ×2 (10:46→21:43)
--- NOTE | 2020-06-05 15:09 | P.CNS ---
Date of Consult: 06/05/20 Reason for Consult: Hyponatremia Requesting Physician: July Walter Chief Complaint: Hyponatremia History of Present Illness: 75-year-old female with history of COPD, hyperlipidemia, hypertension presents emergency department for fall. Patient reportedly fell approximately 2 days prior and having pain in both of her ankles/lower extremities, patient also noted to be 87% on room air upon EMS arrival. Patient evaluated in the emergency department, labs significant for sodium 113 chloride 83, CO2 20, glucose 126 creatinine 1.84 GFR 27 BUN 40 serum osmolality 260 urine is nitrite positive pro calcitonin mildly elevated 0.49 B and P 985 CPK 771 CK MB 15.9 urine sodium 32 cortisol 55.[address] head C-spine chest abdomen pelvis without contrast demonstrates nonspecific scalp lesion, 5.6 cm le ft renal mass which is unchanged from previous 2016 study, atrophic right kidney with mild hydronephrosis and hydroureter with distended bladder. 2.6 cm lipoma within the cecum. Patient had Douglass catheter placed with 1 L of retained urine output, patient was given 500 cc normal saline bolus and Nephrology was consulted, fluids were switched over to NS at 75 cc/hour, repeat chemistry obtained 2 hr later demonstrates sodium 118 CO2 18 creatinine 1.78 ABG obtained demonstrating pH 7.3 PO2 69 HCO3 16.9. Patient currently lives alone and has been having difficulty getting around, family concern for well-being. Patient reportedly with poor p.o. intake taking in very little food/fluids at home. Patient does not consume alcohol, was aware of renal mass, has been told in the past is likely cancer is at that time patient declined any further workup/surgical/chemotherapy. Patient reported that time that she did not want to be on dialysis. Mass has not changed on CT. ED provider wishes to admit for further evaluation and management. 15:54 This 75 yrs old Female presents to ER via EMS with complaints of Fall Injury. khris 15:54 Details of fall: The patient fell from an upright position, while walking. Onset: The khris symptoms/episode began/occurred 5 day(s) ago. Associated injuries: The patient sustained injury to the head, neck injury, right leg and left leg, decreased range of motion, painful injury. Severity of symptoms: At their worst the symptoms were mild, moderate, in the emergency department the symptoms are unchanged. The patient has not experienced similar symptoms in the past. Allergies No Known Allergies Allergy (Unverified 11/12/11 19:53) Home medications list reviewed: Yes - Past Medical/Surgical History -: COPD -: Hypertension -: Hyperlipidemia -: Unknown Psychosocial/ Personal History: Patient lives alone, is unemployed - Family History Sister Medical History: Cancer Notes: Rheumatoid arthritis - Social History Alcohol use: No CD- Drugs: No Caffeine use: Yes Place of Residence: Home Review of Systems 10-point ROS is otherwise unremarkable General: Weakness, Malaise Neurological: Weakness Physical Examination Temp Pulse Resp BP Pulse Ox 98.2 F 105 H 18 142/64 H 91 06/05/20 13:00 06/05/20 13:00 06/05/20 13:00 06/05/20 13:00 06/05/20 13:00 General: In no apparent distress, Cooperative HEENT: Atraumatic Neck: Supple Respiratory: Clear to auscultation bilaterally Cardiovascular: No edema, Regular rate/rhythm Gastrointestinal: Soft and benign, Non-distended Musculoskeletal: No clubbing, No contractures Integumentary: No rashes, No cyanosis, Skin lesion Neurological: Normal speech Laboratory Data (last 24 hrs) 06/04/20 16:10: PT 10.9, INR 0.95 06/04/20 16:10: WBC 11.10 H, Hgb 12.1, Hct 36.1, Plt Count 406 06/04/20 16:10: Sodium 113 L*, Potassium 4.2, BUN 44 H, Creatinine 1.84 H, Glucose 126 H, Magnesium 2.1, Total Bilirubin 0.9, AST 39 H, ALT 21, Alkaline Phosphatase 105, Lipase 220 Imagings Data: EXAM DESCRIPTION: Shante Single View06/04/2020 4:26 pm CLINICAL HISTORY: cough COMPARISON: none FINDINGS: Lungs are hyperaerated. The lungs appear clear of acute infiltrate. The heart is normal size IMPRESSION: No acute abnormalities displayed Conclusions/Impression: A/P: Continue the current POC and Medications other than the changes listed. AM Labs PRN. Recommend daily weight. Please see the orders for complete details. PRAVEEN may be due to hypovolemia CKD III with proteinuria -No NSAIDs Hyponatremia -Start oral sodium bicarb -Oral free water restriction. Acidosis -Start oral bicarb Hypocalcemia -Start Cholecalciferol HTN with CKD -Monitor BP DM II with CKD -Recommend RISS -Check A1C Moderate malnutrition -Encourage nutrition with protein supplementation Anemia in chronic illness -Monitor H&H Thank you kindly for the consultation Case reviewed with Dr. Walter
[2020-06-05 16:23] LABS: Potassium 3.7 mmol/L (3.5-5.1)
[2020-06-05] MEDS: SODIUM BICARB 325 MG TAB PO SCH ×2 (21:00→22:00)
[2020-06-06] MEDS: ALBUTEROL 2.5 MG/3 ML NEB SOL NEB SCH ×5 (01:30→19:40)
[2020-06-06] MEDS: IPRATROPIUM BROM 0.5MG/2.5ML NEB SCH ×4 (01:30→19:40)
[2020-06-06] MEDS ORDERED: IPRATROPIUM BROM 0.5MG/2.5ML ONE ×5 (01:41→19:41)
[2020-06-06] MEDS ORDERED: ALBUTEROL 2.5 MG/3 ML NEB SOL ONE ×3 (01:41→19:40)
[2020-06-06 04:32] LABS: Absolute Lymphocytes (CBC) 0.3 K/uL (0.7-4.9); Basophils % 0.1 % (0-1.3); Hematocrit 32.7 % (36.0-45.0); Lymphocytes % 1.5 % (15.3-44.8); MPV 7.4 fL (7.6-11.3); RBC Red Blood Cell Count 3.97 M/uL (3.86-4.86)
[2020-06-06 05:04] LABS: Albumin 2.6 g/dL (3.4-5.0); Bilirubin Total 0.7 mg/dL (0.2-1.0); Magnesium 2.2 mg/dL (1.8-2.4); Phosphorus 3.3 mg/dL (2.5-4.9); Potassium 3.6 mmol/L (3.5-5.1); Protein, Total 6.7 g/dL (6.4-8.2); Uric Acid 11.2 mg/dL (2.6-6.0)
[2020-06-06 05:06] LABS: CKMB Creatine Kinase MB 11.4 ng/mL (0.3-3.6)
[2020-06-06 05:35] LABS: Urine Appearance CLEAR (Clear); Urine Color YELLOW (Yellow)
[2020-06-06 05:36] LABS: Urine Bilirubin NEGATIVE (Negataive); Urine Blood 2+ (Negative); Urine Glucose NEGATIVE (Negative); Urine Protein 1+ (Negative); Urine pH 5.5 (5.0-7.0)
[2020-06-06 06:18] LABS: Urine Bacteria <20 /HPF (<20); Urine RBC <5 /HPF (NONE SEEN); Urine Urothelial Cells <5 /HPF (NONE SEEN)
[2020-06-06 07:29] LABS: Blood Morphology Comment NOT SEEN (NOT SEEN); Platelet Estimate ADEQ; White Blood Cell Scan OK (OK)
[2020-06-06] MEDS ORDERED: METHYLPREDNISOLONE 125 MG INJ ONE (08:13)
[2020-06-06] MEDS ORDERED: ENOXAPARIN 30 MG/0.3 ML SQ ONE (08:14)
[2020-06-06] MEDS ORDERED: POTASSIUM CL SA 10 MEQ TAB PO ONE ×2 (08:14→09:00)
[2020-06-06] MEDS ORDERED: NICOTINE 21 MG/PAT TD ONE (08:14)
--- NOTE | 2020-06-06 08:41 | P.PN ---
Subjective Date of Service: 06/05/20 Patient is disheveled and multiple stage I ulcers. Also with mass on the left side of her face which she has not gotten any evaluated. This looks like a squamous cell carcinoma. May need to get ENT to see her during hospitalization. Sodium is slowly correcting. Patient is very disheveled and I am not really shore who is caring for her but she will probably need to go to a prison facility as she does not seem like she is able to care for herself. Her nails in her nailbeds are very dirty and long. She has dirt on her face and her chest. She is very unkept. Review of Systems 10-point ROS is otherwise unremarkable Physical Examination - Vital Signs Temperature: 99.4 F Blood Pressure: 151/73 Pulse: 114 Respirations: 19 Pulse Ox (%): 95 - Physical Exam General: Alert, In no apparent distress, Oriented x3 Respiratory: Clear to auscultation bilaterally, Normal air movement Cardiovascular: Regular rate/rhythm, Normal S1 S2, No murmurs Gastrointestinal: Normal bowel sounds, Soft and benign, Non-distended, No tenderness Musculoskeletal: No clubbing, No swelling, No tenderness Neurological: Sensation intact, Cranial nerves 3-12 intact - Studies Medications List Reviewed: Yes Assessment & Plan - Problems (Diagnosis) (1) COPD (chronic obstructive pulmonary disease) Current Visit: Yes Status: Acute Qualifiers: Emphysema type: unspecified (2) Hyponatremia Current Visit: Yes Status: Acute - Advance Directives Does patient have a Living Will: No Does patient have a Durable POA for Healthcare: No
--- NOTE | 2020-06-06 08:42 | P.PN ---
Date of Service: 06/06/20 Subjective Patient is doing a little better. Moved over to the intensive care unit. More awake and alert. Family at bedside. Spoke to son and addressed long-term status. Plan to do rehab after discharge. She really is not at a point which she can take your worsen. Review of Systems 10-point ROS is otherwise unremarkable Physical Examination - Vital Signs reviewed - Physical Exam General: Alert, In no apparent distress, Oriented x3 Respiratory: Clear to auscultation bilaterally, Normal air movement Cardiovascular: Regular rate/rhythm, Normal S1 S2, No murmurs Gastrointestinal: Normal bowel sounds, Soft and benign, Non-distended, No tenderness Musculoskeletal: No clubbing, No swelling, No tenderness Neurological: Sensation intact, Cranial nerves 3-12 intact - Studies Medications List Reviewed: Yes Assessment & Plan - Problems (Diagnosis) (1) COPD (chronic obstructive pulmonary disease) Current Visit: Yes Status: Acute Qualifiers: Emphysema type: unspecified (2) Hyponatremia Current Visit: Yes Status: Acute - Advance Directives Does patient have a Living Will: No Does patient have a Durable POA for Healthcare: No Plan: 1. Continue with gentle hydration with saline 2. Continue with nebs, steroids, and antibiotics 3. Physical therapy evaluation 4. GI and DVT prophylaxis
[2020-06-06] MEDS: ENOXAPARIN 30 MG/0.3 ML SQ SCH (09:00)
[2020-06-06] MEDS: DULERA 100/5 (MOMETASONE/FORMOTEROL) INHALER IH SCH ×2 (09:00→22:14)
[2020-06-06] MEDS: NICOTINE 21 MG/PAT TD SCH (09:00)
[2020-06-06] MEDS: predniSONE 20 MG TAB PO SCH ×2 (09:00→22:00)
[2020-06-06] MEDS ORDERED: predniSONE 20 MG TAB ONE ×2 (09:20→22:02)
[2020-06-06] MEDS ORDERED: VITAMIN D 1000 UNIT TAB ONE (09:28)
[2020-06-06] MEDS: SODIUM BICARB 325 MG TAB PO SCH ×4 (12:55→22:00)
[2020-06-06] MEDS: VITAMIN D 5,000 UNIT CAP PO SCH (12:56)
[2020-06-06] MEDS ORDERED: METOPROLOL TARTRATE 5 MG/5 ML INJ IV STA (13:15)
[2020-06-06 14:49] LABS: Urine Blood Trace-lysed (Negative); Urine Glucose Negative (Negative); Urine Protein 2+ (Negative); Urine pH 5.5 (5.0-7.0)
--- NOTE | 2020-06-06 19:46 | P.PN ---
Date of Service: 06/06/20 Vital Signs Temp Pulse Resp BP Pulse Ox 98.2 F 114 H 18 126/55 L 85 L 06/06/20 16:00 06/06/20 18:00 06/06/20 18:00 06/06/20 18:00 06/06/20 18:00 Medications Acetaminophen (Acetaminophen 500 Mg Tab) 500 mg PO Q4HP PRN PRN Reason: TEMP > 100' F Albuterol Sulfate (Albuterol 2.5 Mg/3 Ml Neb Pinky) 2.5 mg NEB [id number] [facility] Last Admin: 06/06/20 14:08 Dose: 2.5 mg Documented by: Cholecalciferol (Vitamin D 5,000 Unit Cap) 5,000 unit PO DAILY [facility] Last Admin: 06/06/20 12:56 Dose: 5,000 unit Documented by: Enoxaparin Sodium (Enoxaparin 30 Mg/0.3 Ml) 30 mg SQ DAILY [facility] Last Admin: 06/06/20 09:00 Dose: 30 mg Documented by: Ipratropium [place] (Ipratropium Brom 0.5mg/2.5ml) 0.5 mg NEB [id number] [facility] Last Admin: 06/06/20 14:08 Dose: 0.5 mg Documented by: Nicotine (Nicotine 21 Mg/Pat) 21 mg TD DAILY [facility] Last Admin: 06/06/20 09:00 Dose: Not Given Documented by: Ondansetron HCl (Ondansetron 4 Mg/2 Ml Vial) 4 mg IV Q6HP PRN PRN Reason: NAUSEA / VOMITING Prednisone (Prednisone 20 Mg Tab) 20 mg PO BID [facility] Last Admin: 06/06/20 09:00 Dose: 20 mg Documented by: Sodium Bicarbonate (Sodium Bicarb 325 Mg Tab) 650 mg PO QID [facility] Last Admin: 06/06/20 17:55 Dose: 650 mg Documented by: Sodium Chloride (Flush Normal Saline 10 Ml) 10 ml IV BID [facility] Last Admin: 06/06/20 09:00 Dose: 10 ml Documented by: Lab Results (last 24 hrs) 06/04/20 17:49: Urine pH 5.5, Ur Specific Plain 1.020, Glucose (UA)(Auto) Negative, Urine Ketones Negative, Urine Blood Trace-lysed H, Urine Nitrite Positive H, Ur Leukocyte Esterase Negative, Urine Total Protein 2+ H Microbiology Results 06/04/20 17:45 Clean Catch Urine [place] Count - Preliminary No growth. 06/04/20 17:45 Clean Catch Urine - Preliminary No growth. 06/04/20 16:05 Blood - Blood Aerobic Blood Culture - Preliminary No growth in 24 hours. 06/04/20 16:05 Blood - Blood Anaerobic Blood Culture - Preliminary No growth in 24 hours. 06/04/20 16:05 Blood - Blood Aerobic Blood Culture - Preliminary No growth in 24 hours. 06/04/20 16:05 Blood - Blood Anaerobic Blood Culture - Preliminary No growth in 24 hours. Assessment/ Plan: Nephrology No acute cardiac or pulmonary complaints. No CP or SOB. No acute events overnight. Vitals, medications, blood work and imaging reviewed in the chart. General: In no apparent distress, Cooperative HEENT: Atraumatic Neck: Supple Respiratory: Clear to auscultation bilaterally Cardiovascular: No edema, Regular rate/rhythm Gastrointestinal: Soft and benign, Non-distended Musculoskeletal: No clubbing, No contractures Integumentary: No rashes, No cyanosis, Skin lesion Neurological: Normal speech Laboratory Data (last 24 hrs) 06/04/20 16:10: PT 10.9, INR 0.95 06/04/20 16:10: WBC 11.10 H, Hgb 12.1, Hct 36.1, Plt Count 406 06/04/20 16:10: Sodium 113 L*, Potassium 4.2, BUN 44 H, Creatinine 1.84 H, Glucose 126 H, Magnesium 2.1, Total Bilirubin 0.9, AST 39 H, ALT 21, Alkaline Phosphatase 105, Lipase 220 Imagings Data: EXAM DESCRIPTION: Shante Single View06/04/2020 4:26 pm CLINICAL HISTORY: cough COMPARISON: none FINDINGS: Lungs are hyperaerated. The lungs appear clear of acute infiltrate. The heart is normal size IMPRESSION: No acute abnormalities displayed Conclusions/Impression: A/P: Continue the current POC and Medications other than the changes listed. AM Labs PRN. Recommend daily weight. Please see the orders for complete details. PRAVEEN may be due to hypovolemia CKD III with proteinuria -No NSAIDs Atrophic right kidney with hydronephrosis and hydroureter -Start flomax -Consider a urology evaluation Stable 5.6cm left renal mass -Consider a urology evaluation Hyponatremia -Continue oral sodium bicarb -Oral free water restriction -Send repeat BMP this evening Acidosis -Continue oral bicarb Hypocalcemia -Continue Cholecalciferol HTN with CKD complicated by tachycardia -Start metoprolol 12.5mg bid DM II with CKD -Recommend RISS Moderate malnutrition -Encourage nutrition with protein supplementation Anemia in chronic illness -Monitor H&H CT - Head C Spine Cap Wo Con - 06/04/2020 4:33 pm TECHNIQUE: Computed axial tomography of the head and cervical spine was obtained. Coronal and sagittal reconstruction was performed Computed axial tomography of the chest, abdomen and pelvis was obtained. Contrast was not requested. All CT scans are performed using dose optimization technique as appropriate and may include automated exposure control or mA/KV adjustment according to patient size. CLINICAL HISTORY: Head and neck injury with chest and abdominal pain status post fall COMPARISON: CT 2016 chest and abdomen FINDINGS: An intracranial bleed is not seen. Mild low-density areas within periventricular, deep subcortical white matter indicate ischemic changes secondary to small vessel disea The ventricles are normal in caliber. An extra-axial fluid collection is not noted. . Fluid within the sinuses/mastoids is not seen. 12 millimeter lesion within the left parietal scalp. A cervical fracture is not seen. No dislocation is noted. The evaluation of mediastinum, leydi, vessels, solid organs and bowel are limited secondary to the lack of contrast administration. A mediastinal hematoma is not noted. A pleural effusion is not seen. A lung contusion is not present. Coronary arterial calcifications The liver,spleen, pancreas, adrenals,kidneys and bladder do not demonstrate a traumatic injury. 5.6 centimeter left renal mass unchanged from 2016. Small left renal cysts and hyperdense cyst. Atrophic right kidney with mild hydronephrosis and hydroureter. The bladder is distended. Atherosclerotic disease. Small right diaphragmatic hernia contains fat. Small umbilical hernia. 2.6 centimeter lipoma within the cecum IMPRESSION: 1. No acute intracranial abnormality is seen. 14 millimeter left parietal scalp lesion is nonspecific. 2. A cervical fracture is not visualized. If the patient continues have symptoms to suggest intracranial/spinal cord pathology MRI be recommended 3. No traumatic abnormality involving the chest/abdomen/pelvis. 4. Bladder distention with mild right hydronephrosis
[2020-06-06 20:36] LABS: Potassium 3.8 mmol/L (3.5-5.1)
[2020-06-06] MEDS: TAMSULOSIN 0.4 MG SR CAP PO SCH (22:00)
[2020-06-06] MEDS ORDERED: TAMSULOSIN 0.4 MG SR CAP ONE (22:02)
[2020-06-07] MEDS: IPRATROPIUM BROM 0.5MG/2.5ML NEB SCH ×4 (02:45→19:15)
[2020-06-07] MEDS: ALBUTEROL 2.5 MG/3 ML NEB SOL NEB SCH ×4 (02:45→19:15)
[2020-06-07] MEDS ORDERED: ALBUTEROL 2.5 MG/3 ML NEB SOL ONE ×4 (03:05→19:36)
[2020-06-07] MEDS ORDERED: IPRATROPIUM BROM 0.5MG/2.5ML ONE ×4 (03:05→19:36)
[2020-06-07 05:17] LABS: Albumin 2.8 g/dL (3.4-5.0); Bilirubin Total 0.6 mg/dL (0.2-1.0); CKMB Creatine Kinase MB 4.1 ng/mL (0.3-3.6); Magnesium 2.4 mg/dL (1.8-2.4); Phosphorus 2.5 mg/dL (2.5-4.9); Potassium 3.5 mmol/L (3.5-5.1); Protein, Total 6.7 g/dL (6.4-8.2)
[2020-06-07 05:29] LABS: Absolute Lymphocytes (CBC) 0.3 K/uL (0.7-4.9); Basophils % 0.1 % (0-1.3); Hematocrit 36.4 % (36.0-45.0); Lymphocytes % 1.9 % (15.3-44.8); MPV 7.5 fL (7.6-11.3); RBC Red Blood Cell Count 4.37 M/uL (3.86-4.86)
[2020-06-07] MEDS ORDERED: METOPROLOL TAR 25 MG TAB ONE ×3 (05:57→17:54)
[2020-06-07] MEDS ORDERED: METOPROLOL TAR 25 MG TAB PO SCH (06:00)
[2020-06-07] MEDS ORDERED: POTASSIUM 25 MEQ EFFERV TAB PO ONE (09:00)
[2020-06-07] MEDS: predniSONE 20 MG TAB PO SCH ×2 (09:18→21:39)
[2020-06-07] MEDS: ENOXAPARIN 30 MG/0.3 ML SQ SCH (09:18)
[2020-06-07] MEDS: NICOTINE 21 MG/PAT TD SCH (09:19)
[2020-06-07] MEDS: TAMSULOSIN 0.4 MG SR CAP PO SCH ×2 (09:20→21:38)
[2020-06-07] MEDS: DULERA 100/5 (MOMETASONE/FORMOTEROL) INHALER IH SCH (09:21)
[2020-06-07] MEDS ORDERED: NICOTINE 21 MG/PAT TD ONE (09:26)
[2020-06-07] MEDS ORDERED: ENOXAPARIN 30 MG/0.3 ML SQ ONE (09:27)
[2020-06-07] MEDS ORDERED: POTASSIUM 25 MEQ EFFERV TAB ONE (09:27)
[2020-06-07] MEDS ORDERED: TAMSULOSIN 0.4 MG SR CAP ONE ×2 (09:27→21:43)
[2020-06-07] MEDS ORDERED: predniSONE 20 MG TAB ONE ×2 (09:29→21:51)
[2020-06-07] MEDS ORDERED: VITAMIN D 1000 UNIT TAB ONE (09:29)
[2020-06-07] MEDS: VITAMIN D 5,000 UNIT CAP PO SCH (09:46)
[2020-06-07] MEDS: SODIUM BICARB 325 MG TAB PO SCH ×3 (09:47→17:42)
[2020-06-07] MEDS ORDERED: METOPROLOL TAR 25 MG TAB PO ONE (09:52)
--- NOTE | 2020-06-07 11:28 | RAD REPORT ---
EXAM DESCRIPTION: RAD - Chest Single View - 06/07/2020 11:16 am CLINICAL HISTORY: desat Chest pain. COMPARISON: Chest Single View dated 06/04/2020; Chest Pa And Lat (2 Views) dated 08/24/2016; Chest Pa A nd Lat (2 Views) dated 11/23/2015; CHEST PA AND LAT 2 VIEW dated 12/15/2012 FINDINGS: Portable technique limits examination quality. Mild interstitial pulmonary edema is seen. The heart is mildly enlarged in size. Probable small left pleural effusion. IMPRESSION: Mild CHF.
[2020-06-07 11:40] LABS: Arterial Blood Carboxyhemoglob 1.2 % (0-1.5); Blood Gas Oxyhemoglobin 85.9 % (94-97)
[2020-06-07] MEDS ORDERED: FUROSEMIDE 20 MG/ 2ML VIAL IV ONE (11:49)
[2020-06-07] MEDS ORDERED: DIPHENHYDRAMINE 50 MG/ML VIAL IV ONE (12:10)
[2020-06-07] MEDS: ALBUMIN HUMAN 25% 100 ML IV ONE (13:16)
[2020-06-07] MEDS ORDERED: FUROSEMIDE 20 MG/ 2ML VIAL ONE (13:31)
[2020-06-07] MEDS ORDERED: ALBUMIN HUMAN 25% 100 ML IV ONE (13:31)
--- NOTE | 2020-06-07 17:11 | P.PN ---
Date of Service: 06/07/20 Subjective Patient continues to gradually improve. Patient with no new complaints. Patient more awake alert. However, her oxygen requirements did increase. Chest x-ray revealed pulmonary edema. Patient was diuresed and clinically appearing to be doing better. Review of Systems 10-point ROS is otherwise unremarkable Physical Examination - Vital Signs reviewed - Physical Exam General: Alert, In no apparent distress, Oriented x3 Respiratory: Clear to auscultation bilaterally, Normal air movement Cardiovascular: Regular rate/rhythm, Normal S1 S2, No murmurs Gastrointestinal: Normal bowel sounds, Soft and benign, Non-distended, No tenderness Musculoskeletal: No clubbing, No swelling, No tenderness Neurological: Sensation intact, Cranial nerves 3-12 intact - Studies Medications List Reviewed: Yes Assessment & Plan - Problems (Diagnosis) (1) COPD (chronic obstructive pulmonary disease) Current Visit: Yes Status: Acute Qualifiers: Emphysema type: unspecified (2) Hyponatremia Current Visit: Yes Status: Acute Plan: 1. Continue with albuterol and Atrovent nebs 2. Continue with IV steroids 3. Sodium has been corrected. 4. Strength still diminished. Continue with physical therapy 5. Echocardiogram pending 6. Repeat chest x-ray in the morning 7. Hep-Lock IV; strict intake and output 8. GI and DVT prophylaxis
[2020-06-07] MEDS: METOPROLOL TAR 50 MG TAB PO SCH (17:45)
[2020-06-07] MEDS ORDERED: METOPROLOL TAR 50 MG TAB ONE (18:03)
--- NOTE | 2020-06-07 19:33 | P.PN ---
Date of Service: 06/07/20 Vital Signs Temp Pulse Resp BP Pulse Ox 97.7 F 99 H 24 H 119/69 88 L 06/07/20 16:00 06/07/20 18:00 06/07/20 18:00 06/07/20 18:00 06/07/20 18:00 Medications Acetaminophen (Acetaminophen 500 Mg Tab) 500 mg PO Q4HP PRN PRN Reason: TEMP > 100' F Albuterol Sulfate (Albuterol 2.5 Mg/3 Ml Neb Pinky) 2.5 mg NEB [id number] REPLACED BY [facility] Last Admin: 06/07/20 13:15 Dose: 2.5 mg Documented by: Cholecalciferol (Vitamin D 5,000 Unit Cap) 5,000 unit PO DAILY REPLACED BY [facility] Last Admin: 06/07/20 09:46 Dose: 5,000 unit Documented by: Enoxaparin Sodium (Enoxaparin 30 Mg/0.3 Ml) 30 mg SQ DAILY REPLACED BY [facility] Last Admin: 06/07/20 09:18 Dose: 30 mg Documented by: Ipratropium [place] (Ipratropium Brom 0.5mg/2.5ml) 0.5 mg NEB [id number] REPLACED BY [facility] Last Admin: 06/07/20 13:15 Dose: 0.5 mg Documented by: Metoprolol Tartrate (Metoprolol Tar 50 Mg Tab) 50 mg PO BID 6AM 6PM REPLACED BY [facility] Last Admin: 06/07/20 17:45 Dose: 50 mg Documented by: Nicotine (Nicotine 21 Mg/Pat) 21 mg TD DAILY REPLACED BY [facility] Last Admin: 06/07/20 09:19 Dose: 21 mg Documented by: Ondansetron HCl (Ondansetron 4 Mg/2 Ml Vial) 4 mg IV Q6HP PRN PRN Reason: NAUSEA / VOMITING Prednisone (Prednisone 20 Mg Tab) 20 mg PO BID REPLACED BY [facility] Last Admin: 06/07/20 09:18 Dose: 20 mg Documented by: Sodium Chloride (Flush Normal Saline 10 Ml) 10 ml IV BID REPLACED BY [facility] Last Admin: 06/07/20 09:22 Dose: 10 ml Documented by: Tamsulosin HCl (Tamsulosin 0.4 Mg Sr Cap) 0.4 mg PO BID REPLACED BY [facility] Last Admin: 06/07/20 09:20 Dose: 0.4 mg Documented by: Microbiology Results 06/04/20 17:45 Clean Catch Urine [place] Count - Final No growth. 06/04/20 17:45 Clean Catch Urine - Final No growth. 06/04/20 16:05 Blood - Blood Aerobic Blood Culture - Preliminary No growth in 24 hours. 06/04/20 16:05 Blood - Blood Anaerobic Blood Culture - Preliminary No growth in 24 hours. 06/04/20 16:05 Blood - Blood Aerobic Blood Culture - Preliminary No growth in 24 hours. 06/04/20 16:05 Blood - Blood Anaerobic Blood Culture - Preliminary No growth in 24 hours. Assessment/ Plan: Nephrology No acute cardiac or pulmonary complaints. No CP or SOB. No acute events overnight. Vitals, medications, blood work and imaging reviewed in the chart. General: In no apparent distress, Cooperative HEENT: Atraumatic Neck: Supple Respiratory: Clear to auscultation bilaterally Cardiovascular: No edema, Regular rate/rhythm Gastrointestinal: Soft and benign, Non-distended Musculoskeletal: No clubbing, No contractures Integumentary: No rashes, No cyanosis, Skin lesion Neurological: Normal speech Laboratory Data (last 24 hrs) 06/04/20 16:10: PT 10.9, INR 0.95 06/04/20 16:10: WBC 11.10 H, Hgb 12.1, Hct 36.1, Plt Count 406 06/04/20 16:10: Sodium 113 L*, Potassium 4.2, BUN 44 H, Creatinine 1.84 H, Glucose 126 H, Magnesium 2.1, Total Bilirubin 0.9, AST 39 H, ALT 21, Alkaline Phosphatase 105, Lipase 220 Imagings Data: EXAM DESCRIPTION: Shante Single View06/04/2020 4:26 pm CLINICAL HISTORY: cough COMPARISON: none FINDINGS: Lungs are hyperaerated. The lungs appear clear of acute infiltrate. The heart is normal size IMPRESSION: No acute abnormalities displayed Conclusions/Impression: A/P: Continue the current POC and Medications other than the changes listed. AM Labs PRN. Recommend daily weight. Please see the orders for complete details. PRAVEEN may be due to hypovolemia CKD III with proteinuria -No NSAIDs Atrophic right kidney with hydronephrosis and hydroureter -Continue flomax -Consider a urology evaluation Stable 5.6cm left renal mass -Consider a urology evaluation Hyponatremia -Discontinue oral sodium bicarb -Oral free water restriction Hypokalemia -Replete oral potassium Acidosis -Discontinue oral bicarb Hypocalcemia/ Hypercalcemia -Continue Cholecalciferol HTN with CKD complicated by tachycardia -Agree with metoprolol 50mg bid DM II with CKD -Recommend RISS Moderate malnutrition -Encourage nutrition with protein supplementation Anemia in chronic illness -Monitor H&H Case reviewed with Dr. Walter CT - Head C Spine Cap Wo Con - 06/04/2020 4:33 pm TECHNIQUE: Computed axial tomography of the head and cervical spine was obtained. Coronal and sagittal reconstruction was performed Computed axial tomography of the chest, abdomen and pelvis was obtained. Contrast was not requested. All CT scans are performed using dose optimization technique as appropriate and may include automated exposure control or mA/KV adjustment according to patient size. CLINICAL HISTORY: Head and neck injury with chest and abdominal pain status post fall COMPARISON: CT 2016 chest and abdomen FINDINGS: An intracranial bleed is not seen. Mild low-density areas within periventricular, deep subcortical white matter indicate ischemic changes secondary to small vessel disea The ventricles are normal in caliber. An extra-axial fluid collection is not noted. . Fluid within the sinuses/mastoids is not seen. 12 millimeter lesion within the left parietal scalp. A cervical fracture is not seen. No dislocation is noted. The evaluation of mediastinum, leydi, vessels, solid organs and bowel are limited secondary to the lack of contrast administration. A mediastinal hematoma is not noted. A pleural effusion is not seen. A lung contusion is not present. Coronary arterial calcifications The liver,spleen, pancreas, adrenals,kidneys and bladder do not demonstrate a traumatic injury. 5.6 centimeter left renal mass unchanged from 2016. Small left renal cysts and hyperdense cyst. Atrophic right kidney with mild hydronephrosis and hydroureter. The bladder is distended. Atherosclerotic disease. Small right diaphragmatic hernia contains fat. Small umbilical hernia. 2.6 centimeter lipoma within the cecum IMPRESSION: 1. No acute intracranial abnormality is seen. 14 millimeter left parietal scalp lesion is nonspecific. 2. A cervical fracture is not visualized. If the patient continues have symptoms to suggest intracranial/spinal cord pathology MRI be recommended 3. No traumatic abnormality involving the chest/abdomen/pelvis. 4. Bladder distention with mild right hydronephrosis
[2020-06-08] MEDS: ALBUTEROL 2.5 MG/3 ML NEB SOL NEB SCH ×2 (01:30→08:06)
[2020-06-08] MEDS: IPRATROPIUM BROM 0.5MG/2.5ML NEB SCH ×4 (01:30→21:22)
[2020-06-08] MEDS ORDERED: ALBUTEROL 2.5 MG/3 ML NEB SOL ONE ×2 (01:43→08:24)
[2020-06-08] MEDS ORDERED: IPRATROPIUM BROM 0.5MG/2.5ML ONE ×4 (01:44→19:38)
[2020-06-08] MEDS ORDERED: METOPROLOL TAR 50 MG TAB ONE (05:12)
[2020-06-08] MEDS: METOPROLOL TAR 50 MG TAB PO SCH ×2 (05:42→17:01)
[2020-06-08 06:48] LABS: Absolute Lymphocytes (CBC) 0.3 K/uL (0.7-4.9); Basophils % 0.1 % (0-1.3); Hematocrit 34.9 % (36.0-45.0); Lymphocytes % 1.7 % (15.3-44.8); RBC Red Blood Cell Count 4.21 M/uL (3.86-4.86)
[2020-06-08 07:06] LABS: Magnesium 2.4 mg/dL (1.8-2.4); Potassium 3.9 mmol/L (3.5-5.1)
--- NOTE | 2020-06-08 07:33 | RAD REPORT ---
EXAM DESCRIPTION: RAD - Chest Single View - 06/08/2020 5:42 am CLINICAL HISTORY: pneumonia COMPARISON: Portable June 07 TECHNIQUE: AP portable chest image was obtained 06/08/2020 5:42 am . FINDINGS: Lung volumes are reduced from prior imaging. Ill-defined left base opacification remains w ith the left hemidiaphragm and portions of the left heart border obscured. This is a stable presentat ion. Heart and vasculature are normal. No measurable pleural effusion and no pneumothorax. No acute bony abnormality seen. No acute aortic findings suspected. IMPRESSION: Stable chest examination as detailed.
[2020-06-08] MEDS ORDERED: POTASS/SODIUM PHOSPHATE 1 PKT POWD.PACK PO ONE (08:00)
--- NOTE | 2020-06-08 08:48 | P.PN ---
Subjective Date of Service: 06/08/20 Chief Complaint: COPD exacerbation Subjective: Improving (Patient is improving still hypoxic non and developed a few atrial fibrillation) Review of Systems General: Weakness Respiratory: Shortness of Breath Physical Examination - Vital Signs Temperature: 96.5 F Blood Pressure: 137/105 Pulse: 94 Respirations: 20 Pulse Ox (%): 94 - Physical Exam General: Alert, Oriented x3 Respiratory: Expiratory wheezes Cardiovascular: No edema, Irregular heart rate/rhythm - Studies Microbiology Data (last 24 hrs): 06/04/20 17:45 Clean Catch Urine [place] Count - Final No growth. 06/04/20 17:45 Clean Catch Urine - Final No growth. Medications List Reviewed: Yes Assessment & Plan - Problems (Diagnosis) (1) COPD (chronic obstructive pulmonary disease) Current Visit: Yes Status: Acute Plan: Patient is a heavy smoker has COPD exacerbation continue with bronchodilators patient is on chlorthalidone Dc be contributing to hypernatremia also ovoid CAMILA- inhibitor Qualifiers: Emphysema type: unspecified (2) Atrial fibrillation Current Visit: Yes Status: Acute Plan: New onset fully anti coagulated Dc albuterol rate control for the echocardiogram pending thyroid function tests is normal in transfer to the floor titrate sat to 88-90%
[2020-06-08] MEDS ORDERED: AMLODIPINE 10 MG TAB PO SCH (09:00)
[2020-06-08] MEDS ORDERED: CLONIDINE HCL 0.3 MG TAB PO SCH (09:00)
[2020-06-08] MEDS: Linagliptin [Tradjenta] 5 MG Tablet PO SCH (09:00)
[2020-06-08] MEDS: NICOTINE 21 MG/PAT TD SCH (09:01)
[2020-06-08] MEDS: VITAMIN D 5,000 UNIT CAP PO SCH (09:02)
[2020-06-08] MEDS: predniSONE 20 MG TAB PO SCH ×2 (09:03→21:37)
[2020-06-08] MEDS: TAMSULOSIN 0.4 MG SR CAP PO SCH ×2 (09:03→21:37)
[2020-06-08] MEDS: DULERA 100/5 (MOMETASONE/FORMOTEROL) INHALER IH SCH ×3 (09:04→22:03)
[2020-06-08] MEDS ORDERED: TAMSULOSIN 0.4 MG SR CAP ONE ×2 (09:15→21:55)
[2020-06-08] MEDS ORDERED: NICOTINE 21 MG/PAT TD ONE (09:15)
[2020-06-08] MEDS ORDERED: predniSONE 20 MG TAB ONE ×2 (09:15→21:55)
[2020-06-08] MEDS ORDERED: ENOXAPARIN 30 MG/0.3 ML SQ ONE (09:16)
[2020-06-08] MEDS: ASPIRIN 81 MG CHEWABLE TABLET PO SCH (09:25)
[2020-06-08] MEDS: ATORVASTATIN 40 MG TAB PO SCH (09:26)
[2020-06-08] MEDS: APIXABAN 5 MG TABLET PO SCH ×2 (09:26→21:37)
[2020-06-08] MEDS ORDERED: AMLODIPINE 10 MG TAB ONE (09:31)
[2020-06-08] MEDS ORDERED: POTASS/SODIUM PHOSPHATE 1 PKT POWD.PACK ONE (09:31)
[2020-06-08] MEDS ORDERED: ASPIRIN 81 MG CHEWABLE TABLET ONE (09:31)
[2020-06-08] MEDS ORDERED: APIXABAN 5 MG TABLET ONE ×2 (09:32→21:54)
[2020-06-08] MEDS ORDERED: ATORVASTATIN 20 MG TAB ONE (09:32)
[2020-06-08] MEDS ORDERED: cloNIDine HCL 0.1 MG TAB ONE (09:40)
[2020-06-08] MEDS: cloNIDine HCL 0.1 MG TAB PO SCH ×2 (09:44→14:00)
[2020-06-08] MEDS ORDERED: PNEUMOCOCCAL VACCINE 0.5 ML IMVAC ONE (11:00)
[2020-06-08] MEDS ORDERED: ALBUMIN HUMAN 25% 100 ML IV ONE (16:00)
[2020-06-08] MEDS ORDERED: ALBUMIN HUMAN 25% 0 ML IV ONE (16:10)
[2020-06-08] MEDS ORDERED: HYDROCORTISONE SUC 100 MG INJ IV ONE (17:00)
[2020-06-08] MEDS ORDERED: WATER FOR INJ,STERILE 10 ML IV SCH (17:00)
--- NOTE | 2020-06-08 21:20 | P.PN ---
Date of Service: 06/08/20 Vital Signs Temp Pulse Resp BP Pulse Ox 98 F 92 H 15 105/71 90 L 06/08/20 20:00 06/08/20 20:30 06/08/20 20:30 06/08/20 20:30 06/08/20 20:30 Medications Acetaminophen (Acetaminophen 500 Mg Tab) 500 mg PO Q4HP PRN PRN Reason: TEMP > 100' F Apixaban (Apixaban 5 Mg Tablet) 5 mg PO BID [facility] Last Admin: 06/08/20 09:26 Dose: 5 mg Documented by: Aspirin (Aspirin 81 Mg Chewable Tablet) 81 mg PO DAILY [facility] Last Admin: 06/08/20 09:25 Dose: 81 mg Documented by: Atorvastatin Calcium (Atorvastatin 40 Mg Tab) 40 mg PO DAILY [facility] Last Admin: 06/08/20 09:26 Dose: 40 mg Documented by: Home Med (Linagliptin [Tradjenta]) 1 tab PO DAILY [facility] Last Admin: 06/08/20 09:00 Dose: Not Given Documented by: Ipratropium [place] (Ipratropium Brom 0.5mg/2.5ml) 0.5 mg NEB [id number] [facility] Last Admin: 06/08/20 13:55 Dose: 0.5 mg Documented by: Methylprednisolone Sodium Succinate (Methylprednisolone 125 Mg Inj) 60 mg IV Q6HR [facility] Metoprolol Tartrate (Metoprolol Tar 50 Mg Tab) 50 mg PO BID 6AM 6PM [facility] Last Admin: 06/08/20 17:01 Dose: Not Given Documented by: Nicotine (Nicotine 21 Mg/Pat) 21 mg TD DAILY [facility] Last Admin: 06/08/20 09:01 Dose: 21 mg Documented by: Ondansetron HCl (Ondansetron 4 Mg/2 Ml Vial) 4 mg IV Q6HP PRN PRN Reason: NAUSEA / VOMITING Prednisone (Prednisone 20 Mg Tab) 20 mg PO BID [facility] Last Admin: 06/08/20 09:03 Dose: 20 mg Documented by: Sodium Chloride (Flush Normal Saline 10 Ml) 10 ml IV BID [facility] Last Admin: 06/08/20 09:27 Dose: 10 ml Documented by: Sterile Water (Water For Inj,Sterile 10 Ml) 2 ml IV UD [facility] Tamsulosin HCl (Tamsulosin 0.4 Mg Sr Cap) 0.4 mg PO BID [facility] Last Admin: 06/08/20 09:03 Dose: 0.4 mg Documented by: Microbiology Results 06/04/20 17:45 Clean Catch Urine [place] Count - Final No growth. 06/04/20 17:45 Clean Catch Urine - Final No growth. 06/04/20 16:05 Blood - Blood Aerobic Blood Culture - Preliminary No growth in 24 hours. 06/04/20 16:05 Blood - Blood Anaerobic Blood Culture - Preliminary No growth in 24 hours. 06/04/20 16:05 Blood - Blood Aerobic Blood Culture - Preliminary No growth in 24 hours. 06/04/20 16:05 Blood - Blood Anaerobic Blood Culture - Preliminary No growth in 24 hours. Assessment/ Plan: Nephrology Limited IH/ ROS due to AMS. Persistent hypotension today. No acute events overnight. Vitals, medications, blood work and imaging reviewed in the chart. General: In no apparent distress, Cooperative HEENT: Atraumatic Neck: Supple Respiratory: Clear to auscultation bilaterally Cardiovascular: No edema, Regular rate/rhythm Gastrointestinal: Soft and benign, Non-distended Musculoskeletal: No clubbing, No contractures Integumentary: No rashes, No cyanosis, Skin lesion Neurological: Normal speech Laboratory Data (last 24 hrs) 06/04/20 16:10: PT 10.9, INR 0.95 06/04/20 16:10: WBC 11.10 H, Hgb 12.1, Hct 36.1, Plt Count 406 06/04/20 16:10: Sodium 113 L*, Potassium 4.2, BUN 44 H, Creatinine 1.84 H, Glucose 126 H, Magnesium 2.1, Total Bilirubin 0.9, AST 39 H, ALT 21, Alkaline Phosphatase 105, Lipase 220 Imagings Data: EXAM DESCRIPTION: [place] Single View06/04/2020 4:26 pm CLINICAL HISTORY: cough COMPARISON: none FINDINGS: Lungs are hyperaerated. The lungs appear clear of acute infiltrate. The heart is normal size IMPRESSION: No acute abnormalities displayed Conclusions/Impression: A/P: Continue the current POC and Medications other than the changes listed. AM Labs PRN. Recommend daily weight. Please see the orders for complete details. 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 Walter CT - Head C Spine Cap Wo Con - 06/04/2020 4:33 pm TECHNIQUE: Computed axial tomography of the head and cervical spine was obtained. Coronal and sagittal reconstruction was performed Computed axial tomography of the chest, abdomen and pelvis was obtained. Contrast was not requested. All CT scans are performed using dose optimization technique as appropriate and may include automated exposure control or mA/KV adjustment according to patient size. CLINICAL HISTORY: Head and neck injury with chest and abdominal pain status post fall COMPARISON: CT 2016 chest and abdomen FINDINGS: An intracranial bleed is not seen. Mild low-density areas within periventricular, deep subcortical white matter indicate ischemic changes secondary to small vessel disea The ventricles are normal in caliber. An extra-axial fluid collection is not noted. . Fluid within the sinuses/mastoids is not seen. 12 millimeter lesion within the left parietal scalp. A cervical fracture is not seen. No dislocation is noted. The evaluation of mediastinum, leydi, vessels, solid organs and bowel are limited secondary to the lack of contrast administration. A mediastinal hematoma is not noted. A pleural effusion is not seen. A lung co ntusion is not present. Coronary arterial calcifications The liver,spleen, pancreas, adrenals,kidneys and bladder do not demonstrate a traumatic injury. 5.6 centimeter left renal mass unchanged from 2016. Small left renal cysts and hyperdense cyst. Atrophic right kidney with mild hydronephrosis and hydroureter. The bladder is distended. Atherosclerotic disease. Small right diaphragmatic hernia contains fat. Small umbilical hernia. 2.6 centimeter lipoma within the cecum IMPRESSION: 1. No acute intracranial abnormality is seen. 14 millimeter left parietal scalp lesion is nonspecific. 2. A cervical fracture is not visualized. If the patient continues have symptoms to suggest intracranial/spinal cord pathology MRI be recommended 3. No traumatic abnormality involving the chest/abdomen/pelvis. 4. Bladder distention with mild right hydronephrosis
--- NOTE | 2020-06-08 22:11 | CON ---
Date of Consultation: 06/08/2020 Reason For Consultation: Atrial fibrillation with rapid ventricular response. History Of Present Illness: This is a 75-year-old female with history of COPD, history of known tomi nary artery disease that is well collateralized as per her , history of hypertension, dyslipid emia, presented to the emergency room after a fall and since has been in the hospital. She has been slightly hypoxic and she apparently has been having a waxing and waning mental status. The patient w ent into atrial fibrillation with slightly rapid response. However, at the time of my evaluation, he r heart rate was running between 80 and 90 in atrial fibrillation. The patient is not able to answer questions or give history. Past Medical History: As outlined above in the HPI. Medication: Refer to reconciliation sheet for detailed list. Allergies: NO KNOWN DRUG ALLERGIES. Social History: She is a smoker of half a pack per day. Has been a heavy smoker all her life. Does not drink, use any drugs. Review of Systems: All systems reviewed and they were negative except for what mentioned in the HPI. Physical Examination: Vital Signs: Temperature is 97, pulse 91, breathing at 19, blood pressure is 95/69, saturating 92% o n oxygen. General: This is an elderly female who appears confused. Head and Neck: Pupils are equal, reactive to light. Intact eye movements. No JVD. No cyanosis. Neck: Supple. Thyroid is not enlarged. Lungs: Rhonchi bilaterally with decreased breathing sounds. Heart: Irregularly irregular. No extra sounds. Abdomen: Soft, nontender. Bowel sounds positive. No organomegaly. No masses or hernia. No rigidi ty or rebound. Extremities: No clubbing, cyanosis. Intact pulses. Skin: No rash noted. Neuro: Confused, unable to evaluate further due to mental status. Investigations: CT scan of the head, no intracranial abnormalities. Creatinine is 1.65. Sodium is 132, when she came in sodium was 118. Her troponin first set was negative and no further troponins w ere drawn. Assessment And Recommendation: Atrial fibrillation, now rate is controlled. Since the blood pressur e is on the low side, I will hold on any treatment. If her heart rate becomes rapid, I recommend IV loaded amiodarone 150 mg over 10 minutes, then 1 mg/minute for 6 hours, then 0.5 mg/minute for the am ount of 16 hours and please obtain echocardiogram and update the troponin. Further recommendations w ill follow after the echocardiogram results. Thank you for the consult. /CLAUDIA Voice ID: [id number] Report ID: [id number]
[2020-06-09] MEDS ORDERED: METHYLPREDNISOLONE 40 MG INJ ONE ×2 (01:10→08:13)
[2020-06-09] MEDS: IPRATROPIUM BROM 0.5MG/2.5ML NEB SCH ×4 (01:33→21:20)
[2020-06-09] MEDS ORDERED: IPRATROPIUM BROM 0.5MG/2.5ML ONE ×2 (01:55→08:40)
[2020-06-09 05:24] LABS: Absolute Lymphocytes (CBC) 0.4 K/uL (0.7-4.9); Basophils % 0.1 % (0-1.3); Hematocrit 31.9 % (36.0-45.0); Lymphocytes % 2.8 % (15.3-44.8); MPV 7.3 fL (7.6-11.3); RBC Red Blood Cell Count 3.81 M/uL (3.86-4.86)
[2020-06-09 05:33] LABS: Phosphorus 2.7 mg/dL (2.5-4.9); Uric Acid 12.9 mg/dL (2.6-6.0)
[2020-06-09 05:37] LABS: Albumin 3.1 g/dL (3.4-5.0); Bilirubin Total 0.8 mg/dL (0.2-1.0); Magnesium 2.4 mg/dL (1.8-2.4); Potassium 3.7 mmol/L (3.5-5.1); Protein, Total 6.3 g/dL (6.4-8.2)
[2020-06-09] MEDS: METOPROLOL TAR 50 MG TAB PO SCH ×2 (06:14→17:03)
[2020-06-09] MEDS: METHYLPREDNISOLONE 125 MG INJ IV SCH ×5 (06:15→23:50)
[2020-06-09] MEDS ORDERED: METHYLPREDNISOLONE 125 MG INJ ONE (06:23)
[2020-06-09] MEDS ORDERED: METOPROLOL TAR 50 MG TAB ONE ×2 (06:32→08:12)
--- NOTE | 2020-06-09 08:06 | ECHO ---
HEIGHT: 5 ft 6 in WEIGHT: 150 lb 0.04 oz DATE OF STUDY: 06/08/[address]: July Walter MD 2-DIMENSIONAL: YES M.MODE: YES DOPPLER: YES COLOR FLOW: YES TDS: YES PORTABLE: YES DEFINITY: BUBBLE STUDY: DIAGNOSIS: CONGESTIVE HEART FAILURE CARDIAC HISTORY: CATHERIZATION: NO SURGERY: NO PROSTHETIC VALVE: NO PACEMAKER: NO MEASUREMENTS (cm) DIASTOLIC (NORMALS) SYSTOLIC (NORMALS) IVSd 1.1 (0.6-1.2) LA Diam 3.5 (1.9-4.0) LVEF 60% LVIDd 3.5 (3.5-5.7) LVIDs 2.4 (2.0-3.5) %FS 31% LVPWd 1.3 (0.6-1.2) Ao Diam 3.1 (2.0-3.7) 2 DIMENSIONAL ASSESSMENT: RIGHT ATRIUM: NORMAL LEFT ATRIUM: NORMAL RIGHT VENTRICLE: NORMAL LEFT VENTRICLE: NORMAL TRICUSPID VALVE: NORMAL MITRAL VALVE: NORMAL PULMONIC VALVE: NORMAL AORTIC VALVE: NORMAL PERICARDIAL EFFUSION: NONE AORTIC ROOT: NORMAL LEFT VENTRICULAR WALL MOTION: UNABLE TO EVALUATE DOPPLER/COLOR FLOW: NORMAL COMMENTS: POOR WINDOWS. OVERALL LEFT VENTRICULAR EJECTION FRACTION APPEARS NORMAL. RECOMMEND CONTRAST ECHOCARDIOGRAM TO BETTER EVALUATE EJECTION FRACTION AND WALL MOTION. ATRIAL FIBRILLATION. TECHNOLOGIST: ARASH TREVINO
[2020-06-09] MEDS ORDERED: APIXABAN 5 MG TABLET ONE (08:12)
[2020-06-09] MEDS ORDERED: NICOTINE 21 MG/PAT TD ONE (08:12)
[2020-06-09] MEDS ORDERED: ASPIRIN 81 MG CHEWABLE TABLET ONE (08:12)
[2020-06-09] MEDS ORDERED: TAMSULOSIN 0.4 MG SR CAP ONE (08:13)
--- NOTE | 2020-06-09 08:30 | P.PN ---
Date of Service: 06/08/20 Subjective Patient hypotensive; holding BP meds; will only try to give lopressor for HR; continue monitoring oxygenation; transfer held Review of Systems 10-point ROS is otherwise unremarkable Physical Examination - Vital Signs reviewed - Physical Exam General: Alert, In no apparent distress, Oriented x3 Respiratory: Clear to auscultation bilaterally, Normal air movement Cardiovascular: Regular rate/rhythm, Normal S1 S2, No murmurs Gastrointestinal: Normal bowel sounds, Soft and benign, Non-distended, No tenderness Musculoskeletal: No clubbing, No swelling, No tenderness Neurological: Sensation intact, Cranial nerves 3-12 intact - Studies Medications List Reviewed: Yes Assessment & Plan - Problems (Diagnosis) (1) COPD (chronic obstructive pulmonary disease) Current Visit: Yes Status: Acute Qualifiers: Emphysema type: unspecified (2) Hyponatremia Current Visit: Yes Status: Acute Plan: 1. Hold BP meds; resume lopressor in the AM; 2. Continue with IV steroids 3. Sodium has been corrected. 4. Strength still diminished. Continue with physical therapy 5. Echocardiogram pending 6. Repeat chest x-ray in the morning 7. Hep-Lock IV; strict intake and output 8. GI and DVT prophylaxis
[2020-06-09] MEDS: ASPIRIN 81 MG CHEWABLE TABLET PO SCH (08:51)
[2020-06-09] MEDS: APIXABAN 5 MG TABLET PO SCH ×2 (08:52→21:54)
[2020-06-09] MEDS: NICOTINE 21 MG/PAT TD SCH (08:52)
[2020-06-09] MEDS: ATORVASTATIN 40 MG TAB PO SCH (08:52)
[2020-06-09] MEDS: TAMSULOSIN 0.4 MG SR CAP PO SCH ×2 (08:52→21:53)
[2020-06-09] MEDS: predniSONE 20 MG TAB PO SCH (08:53)
[2020-06-09] MEDS: DULERA 100/5 (MOMETASONE/FORMOTEROL) INHALER IH SCH ×2 (08:54→21:54)
[2020-06-09] MEDS: Linagliptin [Tradjenta] 5 MG Tablet PO SCH (09:00)
[2020-06-09] MEDS ORDERED: predniSONE 10 MG TAB ONE (09:14)
[2020-06-09 17:51] VITALS: BMI 22.4
[2020-06-09] MEDS ORDERED: GLUCAGON 1 MG/VIAL IM PRN (19:19)
[2020-06-09] MEDS ORDERED: D50W 25 GM/50 ML SYRINGE IV PRN (19:19)
--- NOTE | 2020-06-09 19:45 | P.PN ---
Date of Service: 06/09/20 Vital Signs Temp Pulse Resp BP Pulse Ox 98.4 F 106 H 20 141/65 H 92 06/09/20 16:00 06/09/20 17:03 06/09/20 16:00 06/09/20 17:03 06/09/20 16:30 Medications Acetaminophen (Acetaminophen 500 Mg Tab) 500 mg PO Q4HP PRN PRN Reason: TEMP > 100' F Apixaban (Apixaban 5 Mg Tablet) 5 mg PO BID [facility] Last Admin: 06/09/20 08:52 Dose: 5 mg Documented by: Aspirin (Aspirin 81 Mg Chewable Tablet) 81 mg PO DAILY [facility] Last Admin: 06/09/20 08:51 Dose: 81 mg Documented by: Atorvastatin Calcium (Atorvastatin 40 Mg Tab) 40 mg PO DAILY [facility] Last Admin: 06/09/20 08:52 Dose: 40 mg Documented by: Dextrose (D50w 25 Gm/50 Ml Syringe) 12.5 gm IV PRN PRN; Protocol PRN Reason: HYPOGLYCEMIA Glucagon (Glucagon 1 Mg/Vial) 1 mg IM 1X PRN; Protocol PRN Reason: HYPOGLYCEMIA Home Med (Linagliptin [Tradjenta]) 1 tab PO DAILY [facility] Last Admin: 06/09/20 09:00 Dose: 1 tab Documented by: Insulin Human Regular (Insulin -Regular Human 50 Unit/0.5 Ml Ml) [address] [facility]; Protocol Ipratropium [place] (Ipratropium Brom 0.5mg/2.5ml) 0.5 mg NEB [id number] [facility] Last Admin: 06/09/20 14:15 Dose: 0.5 mg Documented by: Methylprednisolone Sodium Succinate (Methylprednisolone 125 Mg Inj) 60 mg IV Q6HR [facility] Last Admin: 06/09/20 17:04 Dose: 60 mg Documented by: Metoprolol Tartrate (Metoprolol Tar 50 Mg Tab) 50 mg PO BID 6AM 6PM [facility] Last Admin: 06/09/20 17:03 Dose: 50 mg Documented by: Nicotine (Nicotine 21 Mg/Pat) 21 mg TD DAILY [facility] Last Admin: 06/09/20 08:52 Dose: 21 mg Documented by: Ondansetron HCl (Ondansetron 4 Mg/2 Ml Vial) 4 mg IV Q6HP PRN PRN Reason: NAUSEA / VOMITING Sodium Chloride (Flush Normal Saline 10 Ml) 10 ml IV BID [facility] Last Admin: 06/09/20 09:00 Dose: Not Given Documented by: Sterile Water (Water For Inj,Sterile 10 Ml) 2 ml IV UD [facility] Tamsulosin HCl (Tamsulosin 0.4 Mg Sr Cap) 0.4 mg PO BID [facility] Last Admin: 06/09/20 08:52 Dose: 0.4 mg Documented by: Microbiology Results 06/04/20 16:05 Blood - Blood Aerobic Blood Culture - Final No growth in 5 days. 06/04/20 16:05 Blood - Blood Anaerobic Blood Culture - Final No growth in 5 days. 06/04/20 16:05 Blood - Blood Aerobic Blood Culture - Final No growth in 5 days. 06/04/20 16:05 Blood - Blood Anaerobic Blood Culture - Final No growth in 5 days. 06/04/20 17:45 Clean Catch Urine [place] Count - Final No growth. 06/04/20 17:45 Clean Catch Urine - Final No growth. Assessment/ Plan: Nephrology Feeling much better today with improved strength and appetite. Persistent weakness. No acute events overnight. Vitals, medications, blood work and imaging reviewed in the chart. General: In no apparent distress, Cooperative HEENT: Atraumatic Neck: Supple Respiratory: Clear to auscultation bilaterally Cardiovascular: No edema, Regular rate/rhythm Gastrointestinal: Soft and benign, Non-distended Musculoskeletal: No clubbing, No contractures Integumentary: No rashes, No cyanosis, Skin lesion Neurological: Normal speech Laboratory Data (last 24 hrs) 06/04/20 16:10: PT 10.9, INR 0.95 06/04/20 16:10: WBC 11.10 H, Hgb 12.1, Hct 36.1, Plt Count 406 06/04/20 16:10: Sodium 113 L*, Potassium 4.2, BUN 44 H, Creatinine 1.84 H, Glucose 126 H, Magnesium 2.1, Total Bilirubin 0.9, AST 39 H, ALT 21, Alkaline Phosphatase 105, Lipase 220 Imagings Data: EXAM DESCRIPTION: [place] Single View06/04/2020 4:26 pm CLINICAL HISTORY: cough COMPARISON: none FINDINGS: Lungs are hyperaerated. The lungs appear clear of acute infiltrate. The heart is normal size IMPRESSION: No acute abnormalities displayed Conclusions/Impression: A/P: Continue the current POC and Medications other than the changes listed. AM Labs PRN. Recommend daily weight. Please see the orders for complete details. PRAVEEN may be due to hypovolemia CKD III with proteinuria -No NSAIDs Atrophic right kidney with hydronephrosis and hydroureter -Continue flomax -Consider a urology evaluation Stable 5.6cm left renal mass -Consider a urology evaluation Hyponatremia -Oral free water restriction Hypokalemia -Replete oral potassium prn Acidosis Primary HyperPTH Hypocalcemia/ Hypercalcemia -Follow up Vitamin D levels. 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 Coronal and sagittal reconstruction was performed Computed axial tomography of the chest, abdomen and pelvis was obtained. Contrast was not requested. All CT scans are performed using dose optimization technique as appropriate and may include automated exposure control or mA/KV adjustment according to patient size. CLINICAL HISTORY: Head and neck injury with chest and abdominal pain status post fall COMPARISON: CT 2016 chest and abdomen FINDINGS: An intracranial bleed is not seen. Mild low-density areas within periventricular, deep subcortical white matter indicate ischemic changes secondary to small vessel disea The ventricles are normal in caliber. An extra-axial fluid collection is not noted. . Fluid within the sinuses/mastoids is not seen. 12 millimeter lesion within the left parietal scalp. A cervical fracture is not seen. No dislocation is noted. The evaluation of mediastinum, leydi, vessels, solid organs and bowel are limited secondary to the lack of contrast administration. A mediastinal hematoma is not noted. A pleural effusion is not seen. A lung contusion is not present. Coronary arterial calcifications The liver,spleen, pancreas, adrenals,kidneys and bladder do not demonstrate a traumatic injury. 5.6 centimeter left renal mass unchanged from 2016. Small left renal cysts and hyperdense cyst. Atrophic right kidney with mild hydronephrosis and hydroureter. The bladder is distended. Atherosclerotic disease. Small right diaphragmatic hernia contains fat. Small umbilical hernia. 2.6 centimeter lipoma within the cecum IMPRESSION: 1. No acute intracranial abnormality is seen. 14 millimeter left parietal scalp lesion is nonspecific. 2. A cervical fracture is not visualized. If the patient continues have symptoms to suggest intracranial/spinal cord pathology MRI be recommended 3. No traumatic abnormality involving the chest/abdomen/pelvis. 4. Bladder distention with mild right hydronephrosis
[2020-06-09] MEDS: INSULIN -REGULAR HUMAN 50 UNIT/0.5 ML ML SQ SCH (21:55)
[2020-06-10] MEDS: IPRATROPIUM BROM 0.5MG/2.5ML NEB SCH ×4 (02:15→20:10)
[2020-06-10] MEDS: METHYLPREDNISOLONE 125 MG INJ IV SCH (05:57)
[2020-06-10] MEDS: METOPROLOL TAR 50 MG TAB PO SCH ×2 (05:58→17:03)
[2020-06-10] MEDS: INSULIN -REGULAR HUMAN 50 UNIT/0.5 ML ML SQ SCH ×4 (07:30→22:00)
[2020-06-10 08:20] LABS: Potassium 3.8 mmol/L (3.5-5.1)
[2020-06-10] MEDS: Linagliptin [Tradjenta] 5 MG Tablet PO SCH (09:00)
[2020-06-10] MEDS: NICOTINE 21 MG/PAT TD SCH (09:00)
[2020-06-10] MEDS: TAMSULOSIN 0.4 MG SR CAP PO SCH ×2 (09:37→20:54)
[2020-06-10] MEDS: APIXABAN 5 MG TABLET PO SCH ×2 (09:37→20:54)
[2020-06-10] MEDS: ASPIRIN 81 MG CHEWABLE TABLET PO SCH (09:37)
[2020-06-10] MEDS: ATORVASTATIN 40 MG TAB PO SCH (09:37)
[2020-06-10] MEDS: DULERA 100/5 (MOMETASONE/FORMOTEROL) INHALER IH SCH ×2 (09:38→20:58)
[2020-06-10] MEDS ORDERED: POTASSIUM CL SA 10 MEQ TAB PO ONE (12:00)
--- NOTE | 2020-06-10 13:29 | PN ---
The patient had been admitted by Dr. Walter, has been followed by Dr. Gallegos and I for hyponatremia, at rial fibrillation, UTI, and COPD. She had an echocardiogram ordered by Dr. Gallegos because of paroxys mal atrial fibrillation. She is on Eliquis and metoprolol and the rate is controlled. She would be intolerant to antiarrhythmic. Her echocardiogram was normal. No need for further cardiac workup at this point. We will continue metoprolol and Eliquis. She is also on Norvasc, inhalers, aspirin, Lip itor, Lovenox, Lasix, steroids, Flomax, clonidine as well as potassium. I believe her BNP elevation is secondary to sepsis, UTI . NB/MODL Voice ID: [id number] Report ID: [id number]
--- NOTE | 2020-06-10 13:56 | P.PN ---
Date of Service: 06/09/20 Subjective Patient clinical status improving. Patient more awake alert. Will go ahead and transferred her to general medical floor Review of Systems 10-point ROS is otherwise unremarkable Physical Examination - Vital Signs reviewed - Physical Exam General: Alert, In no apparent distress, Oriented x3 Respiratory: Clear to auscultation bilaterally, Normal air movement Cardiovascular: Regular rate/rhythm, Normal S1 S2, No murmurs Gastrointestinal: Normal bowel sounds, Soft and benign, Non-distended, No tenderness Musculoskeletal: No clubbing, No swelling, No tenderness Neurological: Sensation intact, Cranial nerves 3-12 intact - Studies Medications List Reviewed: Yes Assessment & Plan - Problems (Diagnosis) (1) COPD (chronic obstructive pulmonary disease) Current Visit: Yes Status: Acute Qualifiers: Emphysema type: unspecified (2) Hyponatremia Current Visit: Yes Status: Acute Plan: Continue with plan of care as mentioned below 1. Hold BP meds; resume lopressor in the AM; 2. Continue with IV steroids; may switch to oral steroids 3. Sodium has been corrected. 4. Strength still diminished. Continue with physical therapy; 5. Echocardiogram pending 6. Repeat chest x-ray in the morning 7. Hep-Lock IV; strict intake and output 8. GI and DVT prophylaxis
--- NOTE | 2020-06-10 14:00 | P.PN ---
Date of Service: 06/10/20 Subjective I was able to get patient out of bed and we walked in place. We took side steps next to her bed. Did a lot of exercises with her arms and legs. Posture is still very poor. Need to strengthen her musculature. Review of Systems 10-point ROS is otherwise unremarkable Physical Examination - Vital Signs reviewed - Physical Exam General: Alert, In no apparent distress, Oriented x3 Respiratory: End-expiratory wheezing Cardiovascular: Regular rate/rhythm, Normal S1 S2, No murmurs Gastrointestinal: Normal bowel sounds, Soft and benign, Non-distended, No tenderness Musculoskeletal: No clubbing, No swelling, No tenderness Neurological: Sensation intact, Cranial nerves 3-12 intact - Studies Medications List Reviewed: Yes Assessment & Plan - Problems (Diagnosis) (1) COPD (chronic obstructive pulmonary disease) Current Visit: Yes Status: Acute Qualifiers: Emphysema type: unspecified (2) Hyponatremia Current Visit: Yes Status: Acute Plan: Continue with plan of care as mentioned below 1. Blood pressure is stable. Continuing Lopressor. Monitor volume status closely 2. Continue with IV steroids; may switch to oral steroids 3. Sodium has been corrected. 4. Strength still diminished. 5. Echocardiogram reviewed. Patient with normal ejection fraction 6. Awaiting physical therapy evaluation 7. Hep-Lock IV; strict intake and output 8. GI and DVT prophylaxis
[2020-06-10] MEDS: predniSONE 20 MG TAB PO SCH (20:54)
[2020-06-11] MEDS: IPRATROPIUM BROM 0.5MG/2.5ML NEB SCH ×4 (02:05→20:15)
[2020-06-11 05:07] LABS: Magnesium 2.2 mg/dL (1.8-2.4); Phosphorus 2.7 mg/dL (2.5-4.9); Potassium 4.4 mmol/L (3.5-5.1)
[2020-06-11] MEDS: METOPROLOL TAR 50 MG TAB PO SCH ×2 (06:47→17:24)
[2020-06-11] MEDS: INSULIN -REGULAR HUMAN 50 UNIT/0.5 ML ML SQ SCH ×4 (07:30→21:14)
[2020-06-11] MEDS: predniSONE 20 MG TAB PO SCH ×2 (08:23→21:13)
[2020-06-11] MEDS: APIXABAN 5 MG TABLET PO SCH ×2 (08:23→21:13)
[2020-06-11] MEDS: ASPIRIN 81 MG CHEWABLE TABLET PO SCH (08:23)
[2020-06-11] MEDS: TAMSULOSIN 0.4 MG SR CAP PO SCH ×2 (08:23→21:14)
[2020-06-11] MEDS: NICOTINE 21 MG/PAT TD SCH (08:24)
[2020-06-11] MEDS: Linagliptin [Tradjenta] 5 MG Tablet PO SCH (08:24)
[2020-06-11] MEDS: ATORVASTATIN 40 MG TAB PO SCH (08:25)
[2020-06-11] MEDS: DULERA 100/5 (MOMETASONE/FORMOTEROL) INHALER IH SCH ×2 (08:27→21:15)
[2020-06-11] MEDS ORDERED: FUROSEMIDE 20 MG TABLET PO SCH (09:00)
--- NOTE | 2020-06-11 19:51 | PN ---
Date of Progress Note: 06/11/2020 Subjective: The patient is seen at bedside. Daughter also at the bedside. The patient feels well. Denies any fevers, chills, chest pain, shortness of breath, nausea, vomiting, or diarrhea. Objective: Vital Signs: Blood pressure 113/67, pulse 96, afebrile. General: Frail, small stature. Heart: Regular rate and rhythm. No murmurs, rubs, or gallops. Lungs: Some coarse breath sounds noted in the bilateral lung bullock. No distinct wheezing. Abdomen: Soft, nontender, nondistended. Extremities: No significant edema. Laboratory Data: Serum chemistry showed sodium 135, potassium 4.4, chloride 98, CO2 29, BUN and crea tinine 74/1.74. Creatinine is relatively stable. BUN has been increasing from 40 on admission up no w to 74. Phosphorus level is 2.7, magnesium 2.2. Current Medications: Reviewed. Of note, does continue on Lasix 20 mg p.o. daily, prednisone 20 mg p .o. b.i.d. The patient did receive 1 dose of potassium chloride 20 mEq yesterday. Impression: 1.Hyponatremia, which is improving with Lasix and fluid restriction. 2.Chronic obstructive pulmonary disease exacerbation. 3.Worsening azotemia. Plan: The patient's sodium is improving, however, azotemia is worsening in the setting of steroids a nd Lasix use is likely being exacerbated in that regard. The patient does not have any evidence of G I bleed as causing azotemia. Consideration should be given to reducing steroid dose and given lack o f edema or any obvious volume overload, Lasix will be discontinued at this time, however, can be cont inued once azotemia shows improvement. The patient likely has some element of diastolic congestive heart failure and would benefit from diur etic, which can be restarted again later on this admission. SE/MODL Voice ID: [id number] Report ID: [id number]
[2020-06-11 22:12] VITALS: O2SAT 96
[2020-06-12] MEDS: IPRATROPIUM BROM 0.5MG/2.5ML NEB SCH ×2 (02:00→07:57)
[2020-06-12] MEDS: METOPROLOL TAR 50 MG TAB PO SCH (05:50)
--- NOTE | 2020-06-12 06:57 | P.PN ---
Date of Service: 06/11/20 Subjective Patient continues to improve with no new complaints. Clinical symptoms are improving. Working [facility] getting [facility]. Still really weekend starting to work with therapy finally. Hopefully we can get patient to skilled her and facility over the next 48 hr. Review of Systems 10-point ROS is otherwise unremarkable Physical Examination - Vital Signs reviewed - Physical Exam General: Alert, In no apparent distress, Oriented x3 Respiratory: End-expiratory wheezing but otherwise respiratory status improved Cardiovascular: Regular rate/rhythm, Normal S1 S2, No murmurs Gastrointestinal: Normal bowel sounds, Soft and benign, Non-distended, No tenderness Musculoskeletal: No clubbing, No swelling, No tenderness Neurological: Sensation intact, Cranial nerves 3-12 intact; motor is 4-/5 - Studies Medications List Reviewed: Yes Assessment & Plan - Problems (Diagnosis) (1) COPD (chronic obstructive pulmonary disease) Current Visit: Yes Status: Acute Qualifiers: Emphysema type: unspecified (2) Hyponatremia Current Visit: Yes Status: Acute (3) Generalized weakness with muscular atrophy of the lower extremity Current Visit: Yes Status: Acute Plan: Continue with plan of care as mentioned below 1. Blood pressure is stable. Continuing Lopressor. Monitor volume status closely 2. Continue with IV steroids; switched to oral steroids at this time 3. Sodium has been corrected. 4. Strength still diminished. Continue with physical therapy; 5. Echocardiogram reviewed. Patient with normal ejection fraction 6. Hep-Lock IV; strict intake and output 7. GI and DVT prophylaxis
[2020-06-12] MEDS ORDERED: NA CHLORIDE 0.9% 250 ML IV ONE (06:58)
[2020-06-12] MEDS: INSULIN -REGULAR HUMAN 50 UNIT/0.5 ML ML SQ SCH ×3 (07:30→18:06)
[2020-06-12] MEDS ORDERED: IPRATROPIUM BROM 0.5MG/2.5ML NEB PRN (08:31)
--- NOTE | 2020-06-12 08:33 | P.PN ---
Subjective Date of Service: 06/12/20 Chief Complaint: COPD exacerbation Subjective: Improving (Patient is doing well no new complaints breathing is better) Review of Systems General: Weakness Respiratory: Shortness of Breath Physical Examination - Vital Signs Temperature: 97.7 F Blood Pressure: 95/58 Pulse: 98 Respirations: 18 Pulse Ox (%): 95 - Physical Exam General: Alert, Oriented x3 Respiratory: Diminished, Expiratory wheezes Cardiovascular: No edema, Irregular heart rate/rhythm - Studies Medications List Reviewed: Yes Assessment & Plan - Problems (Diagnosis) (1) COPD (chronic obstructive pulmonary disease) Current Visit: Yes Status: Acute Plan: Exacerbation of COPD patient is doing well hyponatremia resolved BUN is worse creatinine is stable patient is also in AFib possible discharge on an inhaler on oxygen Qualifiers: Emphysema type: unspecified (2) Atrial fibrillation Current Visit: Yes Status: Acute Plan: Patient is in AFib in you with anti coagulation rate control reduce dose of Toprol to low blood pressure
[2020-06-12 08:52] LABS: Potassium 4.2 mmol/L (3.5-5.1)
[2020-06-12 08:58] LABS: Absolute Lymphocytes (CBC) 0.8 K/uL (0.7-4.9); Basophils % 0.3 % (0-1.3); Hematocrit 33.9 % (36.0-45.0); Lymphocytes % 3.7 % (15.3-44.8); MPV 7.8 fL (7.6-11.3); RBC Red Blood Cell Count 4.06 M/uL (3.86-4.86)
[2020-06-12] MEDS ORDERED: predniSONE 20 MG TAB PO SCH (09:00)
[2020-06-12] MEDS: NICOTINE 21 MG/PAT TD SCH (09:00)
[2020-06-12 09:28] LABS: Hypersegmented Neutrophils PRESENT; Platelet Estimate ADEQ
[2020-06-12 09:29] LABS: Blood Morphology Comment NOT SEEN (NOT SEEN)
[2020-06-12] MEDS: TAMSULOSIN 0.4 MG SR CAP PO SCH (10:00)
[2020-06-12] MEDS: APIXABAN 5 MG TABLET PO SCH (10:00)
[2020-06-12] MEDS: ASPIRIN 81 MG CHEWABLE TABLET PO SCH (10:01)
[2020-06-12] MEDS: Linagliptin [Tradjenta] 5 MG Tablet PO SCH (10:03)
[2020-06-12] MEDS: DULERA 100/5 (MOMETASONE/FORMOTEROL) INHALER IH SCH (10:06)
[2020-06-12] MEDS: METOPROLOL TAR 25 MG TAB PO SCH ×2 (10:09→18:07)
[2020-06-12] MEDS: ATORVASTATIN 40 MG TAB PO SCH (10:10)
--- NOTE | 2020-06-12 14:13 | P.DS ---
Admission Date: 06/04/20 Discharge Date: 06/12/20 Primary Care Provider: unknown Disposition: TRANSFER TO SNF - MEDICAL Discharge Condition: GOOD Reason for Admission: COPD exacerbation Consultations: Nephrology-Dr. Marquez Pulmonary-Dr. López Procedures: COVID: Negative CT scan: COMPARISON: CT 2016 chest and abdomen FINDINGS: An intracranial bleed is not seen. Mild low-density areas within periventricular, deep subcortical white matter indicate ischemic changes secondary to small vessel disease The ventricles are normal in caliber. An extra-axial fluid collection is not noted. . Fluid within the sinuses/mastoids is not seen. 12 millimeter lesion within the left parietal scalp. A cervical fracture is not seen. No dislocation is noted. The evaluation of mediastinum, leydi, vessels, solid organs and bowel are limited secondary to the lack of contrast administration. A mediastinal hematoma is not noted. A pleural effusion is not seen. A lung contusion is not present. Coronary arterial calcifications The liver,spleen, pancreas, adrenals,kidneys and bladder do not demonstrate a traumatic injury. 5.6 centimeter left renal mass unchanged from 2016. Small left renal cysts and hyperdense cyst. Atrophic right kidney with mild hydronephrosis and hydroureter. The bladder is distended. Atherosclerotic disease. Small right diaphragmatic hernia contains fat. Small umbilical hernia. 2.6 centimeter lipoma within the cecum IMPRESSION: 1. No acute intracranial abnormality is seen. 14 millimeter left parietal scalp lesion is nonspecific. 2. A cervical fracture is not visualized. 3. No traumatic abnormality involving the chest/abdomen/pelvis. 4. Bladder distention with mild right hydronephrosis ECHO: MEASUREMENTS (cm) DIASTOLIC (NORMALS) SYSTOLIC (NORMALS) IVSd 1.1 (0.6-1.2) LA Diam 3.5 (1.9-4.0) LVEF 60% LVIDd 3.5 (3.5-5.7) LVIDs 2.4 (2.0-3.5) %FS 31% LVPWd 1.3 (0.6-1.2) Ao Diam 3.1 (2.0-3.7) 2 DIMENSIONAL ASSESSMENT: RIGHT ATRIUM: NORMAL LEFT ATRIUM: NORMAL RIGHT VENTRICLE: NORMAL LEFT VENTRICLE: NORMAL TRICUSPID VALVE: NORMAL MITRAL VALVE: NORMAL PULMONIC VALVE: NORMAL AORTIC VALVE: NORMAL PERICARDIAL EFFUSION: NONE AORTIC ROOT: NORMAL LEFT VENTRICULAR WALL MOTION: UNABLE TO EVALUATE DOPPLER/COLOR FLOW: NORMAL COMMENTS: POOR WINDOWS. OVERALL LEFT VENTRICULAR EJECTION FRACTION APPEARS NORMAL. RECOMMEND CONTRAST ECHOCARDIOGRAM TO BETTER EVALUATE EJECTION FRACTION AND WALL MOTION. ATRIAL FIBRILLATION. Follow up CXR: FINDINGS: Lung volumes are reduced from prior imaging. Ill-defined left base opacification remains with the left hemidiaphragm and portions of the left heart border obscured. This is a stable presentation. Heart and vasculature are normal. No measurable pleural effusion and no pneumothorax. No acute bony abnormality seen. No acute aortic findings suspected. IMPRESSION: Stable chest examination as detailed. Medical Problem List: Fall COPD exacerbation Chronic hyponatremia Chronic renal disease stage III complicated with 5.6 cm left renal mass unchanged since 2016 and atrophic right kidney with mild hydronephrosis and hydroureter with urinary retention, Douglass catheter in place Chronic diastolic CHF Hypertension Atrial fibrillation with RVR now on chronic anticoagulation therapy Diabetes mellitus type 2 Tobacco abuse Brief History of Present Illness: 75-year-old female with history of COPD, hyperlipidemia, hypertension presents emergency department for fall. Patient reportedly fell approximately 2 days prior and having pain in both of her ankles/lower extremities, patient also noted to be 87% on room air upon EMS arrival. Patient evaluated in the emergency department, labs significant for sodium 113 chloride 83, CO2 20, glucose 126 creatinine 1.84 GFR 27 BUN 40 serum osmolality 260 urine is nitrite positive pro calcitonin mildly elevated 0.49 B and P 985 CPK 771 CK MB 15.9 urine sodium 32 cortisol 55.[address] head C-spine chest abdomen pelvis without contrast demonstrates nonspecific scalp lesion, 5.6 cm left renal mass which is unchanged from previous 2016 study, atrophic right kidney with mild hydronephrosis and hydroureter with distended bladder. 2.6 cm lipoma within the cecum. Patient had Douglass catheter placed with 1 L of retained urine output, patient was given 500 cc normal saline bolus and Nephrology was consulted, fluids were switched over to NS at 75 cc/hour, repeat chemistry obtained 2 hr later demonstrates sodium 118 CO2 18 creatinine 1.78 ABG obtained demonstrating pH 7.3 PO2 69 HCO3 16.9. Patient currently lives alone and has been having difficulty getting around, family concern for well-being. Patient reportedly with poor p.o. intake taking in very little food/fluids at home. Patient does not consume alcohol, was aware of renal mass, has been told in the past is likely cancer is at that time patient declined any further workup/surgical/chemotherapy. Patient reported that time that she did not want to be on dialysis. Mass has not changed on CT. ED provider wishes to admit for further evaluation and management. Hospital Course: Patient presented after a fall. Patient found to have COPD exacerbation. Patient treated by pulmonology. Patient responded well to IV steroids and treatment. At discharge patient will continue with prednisone 20 mg daily for 14 days. Patient also continue with Dulera 2 puffs twice daily. Recommend follow-up with pulmonology as an outpatient in 1 to 2 weeks to follow-up his hospitalization. Patient on chronic oxygen. Currently on 4 L per nasal cannula. Prior to discharge patient was evaluated for physical therapy and the possibility of skilled placement. Skilled placement was approved. Patient wishes to go to skilled facility to continue rehab. At discharge patient will be discharged to rehab to continue therapy. [facility] care [id number] minutes. Patient full code. Will discharge to skilled facility at discharge. Patient also seen by nephrology due to chronic hyponatremia, chronic renal disease stage III complicated with 5.6 cm left renal mass unchanged since 2016. Right atrophic kidney noted with right mild hydronephrosis and hydroureter with urinary retention. Douglass catheter in place. Patient stable from a renal standpoint. Nephrology recommended possible urology evaluation. This can be done as an outpatient. Patient will continue with Douglass catheter at discharge. Medications have been adjusted. At discharge patient will continue with Flomax 0.4 mg 1 pill twice daily. Patient with hypertension. Medications have been adjusted. Lisinopril, clonidine and Norvasc have been discontinued. Patient remained stable on metoprolol 25 mg 1 pill twice daily. Recommend to maintain blood pressure less than 130/80. Further adjustment can be done by her PCP. Patient developed atrial fibrillation with RVR. Patient was seen and evaluated by cardiology. Patient did well with metoprolol. No need for further antiarrhythmic medication. Patient also did well with anticoagulation therapy. Echocardiogram unremarkable. No further intervention required. At discharge patient will continue with metoprolol 25 mg 1 pill twice daily and Eliquis 5 mg 1 pill twice daily. Follow-up with cardiology as directed. Patient with diabetes mellitus type 2. At discharge patient will continue with Tradjenta 5 mg daily. Recommend to maintain blood sugar less than 140 fasting and less than 200 mils. Further adjustment can be done by her PCP. Patient with tobacco abuse. Tobacco cessation addressed in detail. Patient will continue with NicoDerm patch daily. Patient with hyperlipidemia. At discharge she will continue with Lipitor 40 mg daily. Patient with protein malnutrition. Patient will continue with Ensure twice daily. Vital Signs/Physical Exam: Temp Pulse Resp BP Pulse Ox 97.9 F 105 H 18 99/56 L 94 06/12/20 12:00 06/12/20 12:00 06/12/20 12:00 06/12/20 12:00 06/12/20 12:00 General: Alert, In no apparent distress, Oriented x3, Cooperative HEENT: Atraumatic Neck: Supple Respiratory: Clear to auscultation bilaterally Cardiovascular: Irregular heart rate/rhythm (A fib rate controlled. ) Gastrointestinal: Normal bowel sounds, No tenderness, No masses, No rebound, No guarding Musculoskeletal: No erythema, No tenderness, No warmth Integumentary: No tenderness/swelling, No erythema, No warmth, No cyanosis Neurological: Normal speech, Normal strength at 5/5 x4 extr, Normal tone, Normal affect Laboratory Data at Discharge: WBC 22.20 K/uL (4.3-10.9) H* D 06/12/20 08:16 Hgb 11.4 g/dL (12.0-15.0) L 06/12/20 08:16 Hct 33.9 % (36.0-45.0) L 06/12/20 08:16 Plt Count 392 K/uL (152-406) 06/12/20 08:16 PT 10.9 SECONDS (9.5-12.5) 06/04/20 16:10 INR 0.95 06/04/20 16:10 Sodium 133 mmol/L (136-145) L 06/12/20 08:16 Potassium 4.2 mmol/L (3.5-5.1) 06/12/20 08:16 BUN 88 mg/dL (7-18) H 06/12/20 08:16 Creatinine 2.02 mg/dL (0.55-1.3) H 06/12/20 08:16 Glucose 197 mg/dL (74-106) H 06/12/20 08:16 Uric Acid 12.9 mg/dL (2.6-6.0) H 06/09/20 04:55 Phosphorus 2.7 mg/dL (2.5-4.9) 06/11/20 04:14 Magnesium 2.2 mg/dL (1.8-2.4) 06/11/20 04:14 Total Bilirubin 0.8 mg/dL (0.2-1.0) 06/09/20 04:55 AST 12 U/L (15-37) L 06/09/20 04:55 ALT 16 U/L (12-78) 06/09/20 04:55 Alkaline Phosphatase 68 U/L (45-117) 06/09/20 04:55 Troponin I < 0.02 ng/mL (0.0-0.045) 06/08/20 18:10 Triglycerides 99 mg/dL (<150) 06/05/20 04:18 Cholesterol 140 mg/dL (<200) 06/05/20 04:18 HDL Cholesterol 44 mg/dL (40-60) 06/05/20 04:18 Cholesterol/HDL Ratio 3.18 06/05/20 04:18 Lipase 220 U/L (73-393) 06/04/20 16:10 Home Medications: Aspirin 1 tab PO DAILY 06/06/20 Atorvastatin Calcium [Lipitor] 1 tab PO DAILY 06/06/20 Linagliptin [Tradjenta] 1 tab PO DAILY 06/06/20 Apixaban [Eliquis] 5 mg PO BID #60 tablet 06/12/20 Ensure Enlive 237 ml PO BID #60 can 06/12/20 Metoprolol Tartrate [Lopressor*] 25 mg PO BID 6AM 6PM #60 tab 06/12/20 Mometasone/Formoterol [Dulera 100 Mcg/5 Mcg Inhaler] 2 puff IH BID #1 inhaler 06/12/20 Nicotine [Nicoderm*] 21 mg TD DAILY #30 patch.td24 06/12/20 Tamsulosin [Flomax*] 0.4 mg PO BID #60 cap 06/12/20 predniSONE [Prednisone*] 20 mg PO DAILY #14 tab 06/12/20 New Medications: Mometasone/Formoterol [Dulera 100 Mcg/5 Mcg Inhaler] 2 puff IH BID #1 inhaler Apixaban [Eliquis] 5 mg PO BID #60 tablet Ensure Enlive 237 ml PO BID #60 can Tamsulosin [Flomax*] 0.4 mg PO BID #60 cap Metoprolol Tartrate [Lopressor*] 25 mg PO BID 6AM 6PM #60 tab Nicotine [Nicoderm*] 21 mg TD DAILY #30 patch.td24 predniSONE [Prednisone*] 20 mg PO DAILY #14 tab Physician Discharge Instructions: Patient presented after a fall. Patient found to have COPD exacerbation. Patient treated by pulmonology. Patient responded well to IV steroids and treatment. At discharge patient will continue with prednisone 20 mg daily for 14 days. Patient also continue with Dulera 2 puffs twice daily. Recommend follow-up with pulmonology as an outpatient in 1 to 2 weeks to follow-up his hospitalization. Patient on chronic oxygen. Currently on 4 L per nasal cannula. Prior to discharge patient was evaluated for physical therapy and the possibility of skilled placement. Skilled placement was approved. Patient wishes to go to skilled facility to continue rehab. At discharge patient will be discharged to rehab to continue therapy. [facility] [id number] minutes. Patient full code. Will discharge to skilled facility at discharge. Patient also seen by nephrology due to chronic hyponatremia, chronic renal disease stage III complicated with 5.6 cm left renal mass unchanged since 2016. Right atrophic kidney noted with right mild hydronephrosis and hydroureter with urinary retention. Douglass catheter in place. Patient stable from a renal standpoint. Nephrology recommended possible urology evaluation. This can be done as an outpatient. Patient will continue with Douglass catheter at discharge. Medications have been adjusted. At discharge patient will continue with Flomax 0.4 mg 1 pill twice daily. Patient with hypertension. Medications have been adjusted. Lisinopril, clonidine and Norvasc have been discontinued. Patient remained stable on metoprolol 25 mg 1 pill twice daily. Recommend to maintain blood pressure less than 130/80. Further adjustment can be done by her PCP. Patient developed atrial fibrillation with RVR. Patient was seen and evaluated by cardiology. Patient did well with metoprolol. No need for further antiarrhythmic medication. Patient also did well with anticoagulation therapy. Echocardiogram unremarkable. No further intervention required. At discharge patient will continue with metoprolol 25 mg 1 pill twice daily and Eliquis 5 mg 1 pill twice daily. Follow-up with cardiology as directed. Patient with diabetes mellitus type 2. At discharge patient will continue with Tradjenta 5 mg daily. Recommend to maintain blood sugar less than 140 fasting and less than 200 mils. Further adjustment can be done by her PCP. Patient with tobacco abuse. Tobacco cessation addressed in detail. Patient will continue with NicoDerm patch daily. Patient with hyperlipidemia. At discharge she will continue with Lipitor 40 mg daily. Patient with protein malnutrition. Patient will continue with Ensure twice daily. Diet: AHA Activity: Fall precautions Followup: NONE,NONE [Primary Care Provider] - Time spent managing pt's care (in minutes): 55
[2020-06-12 16:43] VITALS: BP 173/103; TEMP 97.8
[2020-06-12] MEDS ORDERED: LACTULOSE 20 GM/30 ML UCUP PO ONE (18:00)
[2020-06-12] MEDS ORDERED: ENSURE ENLIVE 237 ML CAN PO SCH (21:00)
--- NOTE | 2020-06-12 21:08 | P.PN ---
Date of Service: 06/12/20 Vital Signs Temp Pulse Resp BP Pulse Ox 97.8 F 111 H 19 173/103 H 90 L 06/12/20 16:00 06/12/20 18:07 06/12/20 16:00 06/12/20 18:07 06/12/20 16:00 Microbiology Results 06/04/20 16:05 Blood - Blood Aerobic Blood Culture - Final No growth in 5 days. 06/04/20 16:05 Blood - Blood Anaerobic Blood Culture - Final No growth in 5 days. 06/04/20 16:05 Blood - Blood Aerobic Blood Culture - Final No growth in 5 days. 06/04/20 16:05 Blood - Blood Anaerobic Blood Culture - Final No growth in 5 days. 06/04/20 17:45 Clean Catch Urine [place] Count - Final No growth. 06/04/20 17:45 Clean Catch Urine - Final No growth. Assessment/ Plan: Nephrology Feeling much better today. Weakness improving. No acute events overnight. Vitals, medications, blood work and imaging reviewed in the chart. General: In no apparent distress, Cooperative HEENT: Atraumatic Neck: Supple Respiratory: Clear to auscultation bilaterally Cardiovascular: No edema, Regular rate/rhythm Gastrointestinal: Soft and benign, Non-distended Musculoskeletal: No clubbing, No contractures Integumentary: No rashes, No cyanosis, Skin lesion Neurological: Normal speech Laboratory Data (last 24 hrs) 06/04/20 16:10: PT 10.9, INR 0.95 06/04/20 16:10: WBC 11.10 H, Hgb 12.1, Hct 36.1, Plt Count 406 06/04/20 16:10: Sodium 113 L*, Potassium 4.2, BUN 44 H, Creatinine 1.84 H, Glucose 126 H, Magnesium 2.1, Total Bilirubin 0.9, AST 39 H, ALT 21, Alkaline Phosphatase 105, Lipase 220 Imagings Data: EXAM DESCRIPTION: Shante Single View06/04/2020 4:26 pm CLINICAL HISTORY: cough COMPARISON: none FINDINGS: Lungs are hyperaerated. The lungs appear clear of acute infiltrate. The heart is normal size IMPRESSION: No acute abnormalities displayed Conclusions/Impression: A/P: Continue the current POC and Medications other than the changes listed. AM Labs PRN. Recommend daily weight. Please see the orders for complete details. PRAVEEN may be due to hypovolemia CKD III with proteinuria -No NSAIDs Atrophic right kidney with hydronephrosis and hydroureter -Continue flomax -Continue feliz -Recommend an outpt urology evaluation Stable 5.6cm left renal mass -Consider a urology evaluation Hyponatremia -Oral free water restriction Hypokalemia -Replete oral potassium prn Acidosis Primary HyperPTH Hypocalcemia/ Hypercalcemia -Follow up Vitamin D levels. HTN with CKD complicated by tachycardia -Continue Metoprolol 50mg bid DM II with CKD -Recommend RISS Moderate malnutrition -Encourage nutrition with protein supplementation Anemia in chronic illness -Monitor H&H Case reviewed with Dr. Bruno CT - Head C Spine Cap Wo Con - 06/04/2020 4:33 pm TECHNIQUE: Computed axial tomography of the head and cervical spine was obtained. Coronal and sagittal reconstruction was performed Computed axial tomography of the chest, abdomen and pelvis was obtained. Contrast was not requested. All CT scans are performed using dose optimization technique as appropriate and may include automated exposure control or mA/KV adjustment according to patient size. CLINICAL HISTORY: Head and neck injury with chest and abdominal pain status post fall COMPARISON: CT 2016 chest and abdomen FINDINGS: An intracranial bleed is not seen. Mild low-density areas within periventricular, deep subcortical white matter indicate ischemic changes secondary to small vessel disea The ventricles are normal in caliber. An extra-axial fluid collection is not noted. . Fluid within the sinuses/mastoids is not seen. 12 millimeter lesion within the left parietal scalp. A cervical fracture is not seen. No dislocation is noted. The evaluation of mediastinum, leydi, vessels, solid organs and bowel are limited secondary to the lack of contrast administration. A mediastinal hematoma is not noted. A pleural effusion is not seen. A lung contusion is not present. Coronary arterial calcifications The liver,spleen, pancreas, adrenals,kidneys and bladder do not demonstrate a traumatic injury. 5.6 centimeter left renal mass unchanged from 2016. Small left renal cysts and hyperdense cyst. Atrophic right kidney with mild hydronephrosis and hydroureter. The bladder is distended. Atherosclerotic disease. Small right diaphragmatic hernia contains fat. Small umbilical hernia. 2.6 centimeter lipoma within the cecum IMPRESSION: 1. No acute intracranial abnormality is seen. 14 millimeter left parietal scalp lesion is nonspecific. 2. A cervical fracture is not visualized. If the patient continues have symptoms to suggest intracranial/spinal cord pathology MRI be recommended 3. No traumatic abnormality involving the chest/abdomen/pelvis. 4. Bladder distention with mild right hydronephrosis
[2020-06-14 12:24] LABS: Vitamin D 1,25-Dihydroxy Total 17 pg/mL (18-72); Vitamin D,1,25-OH2, D2 <8 pg/mL
== END 2020-06-12 18:14 | DRG 640 ==
LOC: ER 15:13 → ERHOLD 19:16 → 2ND 06-09 15:40
PROVIDERS: ADMIT Hospitalist; ATTEND Family Medicine
DX: E87.1 Hypo-osmolality and hyponatremia (principal); J96.21 Acute and chronic respiratory failure with hypoxia; J44.1 Chronic obstructive pulmonary disease with (acute) exacerbation; N17.9 Acute kidney failure, unspecified; N39.0 Urinary tract infection, site not specified; E44.0 Moderate protein-calorie malnutrition; N13.30 Unspecified hydronephrosis; I50.32 Chronic diastolic (congestive) heart failure; I13.0 Hypertensive heart and chronic kidney disease with heart failure and stage 1 through stage 4 chronic kidney disease, or unspecified chronic kidney disease; N18.30 Chronic kidney disease, stage 3 unspecified; E11.22 Type 2 diabetes mellitus with diabetic chronic kidney disease; E83.51 Hypocalcemia; E87.2 Acidosis; N28.9 Disorder of kidney and ureter, unspecified; F17.210 Nicotine dependence, cigarettes, uncomplicated; I48.91 Unspecified atrial fibrillation; D63.8 Anemia in other chronic diseases classified elsewhere; E83.52 Hypercalcemia; E87.6 Hypokalemia; E78.5 Hyperlipidemia, unspecified; R00.0 Tachycardia, unspecified; R33.9 Retention of urine, unspecified; W18.30XA Fall on same level, unspecified, initial encounter; Z90.710 Acquired absence of both cervix and uterus; Z90.49 Acquired absence of other specified parts of digestive tract; Z71.6 Tobacco abuse counseling; Z68.22 Body mass index [BMI] 22.0-22.9, adult; Z60.2 Problems related to living alone; Z79.51 Long term (current) use of inhaled steroids; Z79.82 Long term (current) use of aspirin; Z79.899 Other long term (current) drug therapy; Z79.01 Long term (current) use of anticoagulants; Z79.52 Long term (current) use of systemic steroids; Z20.822 Contact with and (suspected) exposure to COVID-19
CPT/HCPCS: 36415; 51702; 70450; 71045; 71250; 72125; 80048; 80053; 80061; 80076; 81001; 81003; 82306; 82533; 82550; 82553; 82565; 82570; 82652; 82805; 82947; 83036; 83605; 83690; 83735; 83880; 83930; 83935; 83970; 84100; 84145; 84300; 84439; 84443; 84484; 84550; 85025; 85610; 87040; 87086; 87088; 90471; 90714; 93005; 93306; 94640; 96365; 96375; 97112; 97116; 97161; 97530; 99251; 99285; J1650; J1720; J1940; J2543; J2920; J2930; J3411; J7030; J7040; J7050; J7512; J7606; P9047; U0003

== ENCOUNTER 2020-06-18 20:18 | Inpatient (IN) | payer OTHER ==
--- OUTSIDE RECORDS SUMMARY | 2020-06-18 20:21 | XMS REPORT | Continuity of Care Document ---
:1945 Author Organization [facility] t Address [address] [place] [address] Care Team Providers Name Role Phone Unavailable Unavailable Unavailable Problems This patient has no known problems. Allergies, Adverse Reactions, Alerts Allergy Allergy Status Severity Reaction(s) Onset Inactive Treating Comm ents Source Name Type Date Date Clinician Bactrim Adverse Active Info Not [facility] Medications Ordered Filled Start Stop Current Ordering Indication Dosage Frequency Signature Comments Components Source Medication Medication Date Date Medication? Clinician (SIG) Name Name ProAir HFA ProAir HFA Yes Naresh [address] [facility] Symbicort Symbicort Yes Naresh [address] [facility] Fish Oil Fish Oil Yes Naresh [address] [facility] Clonidine Clonidine Yes Naresh [address] [facility] HCl HCl [facility] Lisinopril Lisinopril Yes Naresh [address] [facility] Tradjenta Tradjenta Yes Naresh [address] [facility] Atorvastati Atorvastati Yes Naresh [address] [facility] Calcium n Calcium [facility] Chlorthalid Chlorthalid Yes Naresh [address] [facility] one one [place] in the [facility] food [facility] Amlodipine Amlodipine Yes Naresh [address] [facility] Besylate Besylate [facility] Aspir-81 Aspir-81 Yes Naresh [address] [facility] Metoprolol Metoprolol Yes Naresh [address] [facility] Tartrate Tartrate [facility] with food L [facility] Simvastatin Simvastatin Yes Naresh [address] [facility] [place] in [facility] Procedures This patient has no known procedures. Encounters Start End Encounter Admission Attending Care Care Encounter Source Date/Time Date/Time Type Type Clinicians Facility Department ID 2020-04-20 2020-04-20 Outpatient [facility] [id number] [facility] 2020-04-07 2020-04-07 Outpatient [facility] [id number] [facility] 2020-04-07 2020-04-07 Outpatient [facility] [id number] [facility] 2020-01-04 2020-01-04 Outpatient [facility] [id number] [facility] 2019-11-29 2019-11-29 Outpatient [facility] [id number] [facility] 2019-10-04 2019-10-04 [facility] [id number] [facility] 10:45:00 10:45:00 t [employer] [facility] Outpat[facility] Clinics 2019-10-04 2019-10-04 [facility] [id number] [address] 08:22:00 08:22:00 t [employer] [facility] Medicine Medicine Outpati ent Clinics 2019-09-03 2019-09-03 [facility] [id number] [facility] [address] 08:35:00 08:35:00 [employer] [facility] Outpat[facility] Clinics 2019-06-07 2019-06-07 [facility] [id number] [facility] 11:15:00 11:15:00 t [place] Analyze Re Luke s - [facility] l Medicine Outpati ent Clinics 2019-05-04 2019-05-04 [facility] [id number] 15:13:00 15:13:00 t [place] Analy[employer] Re Luke s - Drive [facility] Medicine l Medicine Outpati ent Clinics 2019-03-04 2019-03-04 [facility] [id number] [address] 13:30:00 13:30:00 t [place] Analy[employer] Re Luke s - Drive [facility] l Medicine Outpati ent Clinics 2019-02-24 2019-02-24 [facility] [id number] [facility] 16[facility]45:00 16:45:00 t [place] [employer] - Drive [facility] Medicine l Medicine Outpati ent Clinics 2019-01-13 2019-01-13 [facility] [id number] 16:40:00 16:40:00 t [place] Analyze Re [employer] s - Drive [facility] Medicine l Medicine Outpati ent Clinics 2018-11-12 2018-11-12 [facility] [id number] 09:00:00 09:00:00 t [place] [employer] - Drive [facility] Medicine l Medicine Outpati ent Clinics 2018-11-07 2018-11-07 [facility] [id number] 13:23:00 13:23:00 t [place] Analyze Re Luke s - Drive [facility] Medicine l Medicine Outpati ent Clinics 2018-11-06 2018-11-06 [facility] [id number] [address] 13:55:00 13:55:00 t [place] Analyze Re Luke s - Drive [facility] Medicine l Medicine Outpati ent Clinics 2018-06-26 2018-06-26 [facility] [id number] [address] 14:54:00 14:54:00 t [place] Analy[employer] Re [employer] s - Drive [facility] Medicine l Medicine Outpati ent Clinics 2018-03-24 2018-03-24 [facility] [id number] [address] 09:30:00 09:30:00 t [place] Analy[employer] Re [employer] s - Drive [facility] Medicine Outpati ent Clinics 2018-03-12 2018-03-12 [facility] [id number] 09:58:00 09:58:00 t [place] [employer] - Analyze Re [facility] Medicine Outpati ent Clinics 2017-09-11 2017-09-11 [facility] [id number] 11:00:00 11:00:00 t V[employer] - Analyze Re [facility] Medicine Outpati ent Clinics 2017-09-10 2017-09-10 [facility] [id number] 10:24:00 10:24:00 t [place] [employer] - Analyze Re [facility] Medicine Outpati ent Clinics 2017-06-26 2017-06-26 [facility] [id number] 08:55:00 08:55:00 t V[employer] - Analyze Re [facility] Medicine Outpati ent Clinics 2017-05-13 2017-05-13 [facility] [id number] [facility] 09:41:00 09:41:00 t V[employer] s - Analyze Re [facility] Medicine Outpati ent Clinics 2017-05-05 2017-05-05 [facility] [id number] 10:04:00 10:04:00 t Vindi s - Analyze Re [facility] Medicine Outpati ent Clinics 2017-05-05 2017-05-05 [facility] [id number] 09:00:00 09:00:00 t [employer] [facility] Medicine Outpat[facility] Clinics Results This patient has no known results.
[2020-06-18] MEDS ORDERED: NA CHLORIDE 0.9% 500 ML ONE (22:34)
[2020-06-18 22:40] LABS: Absolute Lymphocytes (CBC) 0.4 K/uL (0.7-4.9); Basophils % 0.1 % (0-1.3); Hematocrit 29.6 % (36.0-45.0); Lymphocytes % 2.3 % (15.3-44.8); MPV 9.4 fL (7.6-11.3); RBC Red Blood Cell Count 3.56 M/uL (3.86-4.86)
[2020-06-18 22:55] LABS: Protime INR 1.78
[2020-06-18 23:16] LABS: Albumin 2.6 g/dL (3.4-5.0); Bilirubin Direct 0.2 mg/dL (0-0.2); Bilirubin Total 0.8 mg/dL (0.2-1.0); Magnesium 2.5 mg/dL (1.8-2.4); Potassium 4.4 mmol/L (3.5-5.1); Protein, Total 6.2 g/dL (6.4-8.2); Troponin (Emerg Dept Use Only) 0.05 ng/mL (0.0-0.045)
[2020-06-18 23:23] LABS: Blood Morphology Comment NOTED (NOT SEEN); Burr Cells 3+; Platelet Estimate ADEQ; Polychromasia 1+
[2020-06-18] MEDS ORDERED: NA CHLORIDE 0.9% 1,000 ML ONE (23:50)
--- NOTE | 2020-06-19 00:07 | EDPHYS ---
Physician Documentation [facility] Name: Norma Weiss Age: 75 yrs Sex: Female : 1945 Arrival Date: 06/18/2020 Time: 20:29 Bed 16 Private MD: ED Physician Jayson Turpin HPI: 06/18 22:03 This 75 yrs old Female presents to ER via EMS with complaints of Abnormal mh7 Labs. 22:03 Sent from care facility due to abnormal labs. Onset: The symptoms/episode mh7 began/occurred today. Severity of symptoms: At their worst the symptoms were moderate today, in the emergency department the symptoms are unchanged. Historical: - Home Meds: 20:44 amlodipine 10 mg tab 1 tab once daily [Active]; aspirin 81 mg Oral TbEC 1 tab once lp1 daily [Active]; atorvastatin 40 mg Oral tab 1 tab once daily [Active]; chlothalidone 25 mg daily 1 tab daily [Active]; clonidine HCl 0.3 mg Oral tab 1 tab three times a day [Active]; lisinopril 20 mg Oral tab 1 tab twice a day [Active]; metoprolol tartrate 50 mg Oral tab 1 tab 2 times per day [Active]; Symbicort inhalation [Active]; Tradjenta 5 mg Oral tab 1 tab once daily [Active]; Ventolin HFA 90 mcg/actuation Nebulizer HFAA 1 puff every 4 hours [Active]; - PMHx: 20:44 COPD; Hyperlipidemia; Hypertension; lp1 - Immunization history:: Adult Immunizations up to date. - Social history:: Smoking status: unknown. ROS: 22:03 Constitutional: Negative for fever, chills, and weight loss, Eyes: Negative for injury, mh7 pain, redness, and discharge, ENT: Negative for injury, pain, and discharge, Neck: Negative for injury, pain, and swelling, Cardiovascular: Negative for chest pain, palpitations, and edema, Respiratory: Negative for shortness of breath, cough, wheezing, and pleuritic chest pain, Abdomen/GI: Negative for abdominal pain, nausea, vomiting, diarrhea, and constipation, Back: Negative for injury and pain, : Negative for injury, bleeding, discharge, and swelling, MS/Extremity: Negative for injury and deformity, Skin: Negative for injury, rash, and discoloration, Neuro: Negative for headache, weakness, numbness, tingling, and seizure, Psych: Negative for depression, anxiety, suicide ideation, homicidal ideation, and hallucinations, Allergy/Immunology: Negative for hives, rash, and allergies, Endocrine: Negative for neck swelling, polydipsia, polyuria, polyphagia, and marked weight changes, Hematologic/Lymphatic: Negative for swollen nodes, abnormal bleeding, and unusual bruising. Exam: 22:03 Constitutional: This is a well developed, well nourished patient who is awake, alert, mh7 and in no acute distress. Head/Face: Normocephalic, atraumatic. Eyes: Pupils equal round and reactive to light, extra-ocular motions intact. Lids and lashes normal. Conjunctiva and sclera are non-icteric and not injected. Cornea within normal limits. Periorbital areas with no swelling, redness, or edema. Neck: Trachea midline, no thyromegaly or masses palpated, and no cervical lymphadenopathy. Supple, full range of motion without nuchal rigidity, or vertebral point tenderness. No Meningismus. Chest/axilla: Normal chest wall appearance and motion. Nontender with no deformity. No lesions are appreciated. Cardiovascular: Regular rate and rhythm with a normal S1 and S2. No gallops, murmurs, or rubs. Normal PMI, no JVD. No pulse deficits. Respiratory: Lungs have equal breath sounds bilaterally, clear to auscultation and percussion. No rales, rhonchi or wheezes noted. No increased work of breathing, no retractions or nasal flaring. Abdomen/GI: Soft, non-tender, with normal bowel sounds. No distension or tympany. No guarding or rebound. No evidence of tenderness throughout. Back: No spinal tenderness. No costovertebral tenderness. Full range of motion. Skin: Warm, dry with normal turgor. Normal color with no rashes, no lesions, and no evidence of cellulitis. MS/ Extremity: Pulses equal, no cyanosis. Neurovascular intact. Full, normal range of motion. Neuro: Awake and alert, GCS 15, oriented to person, place, time, and situation. Cranial nerves II-XII grossly intact. Motor strength 5/5 in all extremities. Sensory grossly intact. Cerebellar exam normal. Normal gait. Psych: Awake, alert, with orientation to person, place and time. Behavior, mood, and affect are within normal limits. Vital Signs: 21:04 BP 92 / 72; Pulse 102; Resp 20; Temp 97.7; Pulse Ox 98% on 2 lpm NC; Weight 63.5 kg; zb Height 5 ft. 6 in. (167.64 cm); Pain 10/10; 22:55 BP 90 / 65; Pulse 104; Resp 20; Pulse Ox 96% on 2 lpm NC; zb 23:38 BP 107 / 52; Pulse 108; Resp 20; Pulse Ox 99% on 2 lpm NC; zb 05 00:00 BP 89 / 59; Pulse 93; Resp 19; Pulse Ox 97% on 2 lpm NC; zb 00:23 BP 98 / 70; Pulse 98; Resp 20; Pulse Ox 96% on 2 lpm NC; zb 02:00 BP 116 / 62; Pulse 102; Resp 19; Temp 97.8; Pulse Ox 96% 2 lpm ; rr5 06/18 21:04 Body Mass Index 22.60 (63.50 kg, 167.64 cm) zb MDM: 00:03 Differential Diagnosis sepsis, Abnormal labs, electrolyte abnormality. Data reviewed: [facility] vital signs, nurses notes, EMS record, halfway records, old medical records, lab test result(s), cardiac enzymes, CBC, electrolytes, EKG, radiologic studies, CT scan. Data interpreted: Pulse oximetry: on room air is 99 %. Interpretation: normal. Counseling: I had a detailed discussion with the patient and/or guardian regarding: the historical points, exam findings, and any diagnostic results supporting the discharge/admit diagnosis, lab results, radiology results, the need for further work-up and treatment in the hospital. Response to treatment: the patient's symptoms have mildly improved after treatment. 00:06 Patient medically screened. [facility] 06/18 21:33 Order name: Basic Metabolic Panel; Complete Time: 23:28 [facility] 06/18 21:33 Order name: CBC with Diff; Complete Time: 23:28 [facility] 06/18 21:33 Order name: LFT's; Complete Time: 23:28 [facility] 06/18 21:33 Order name: Magnesium; Complete Time: 23:28 [facility] 06/18 21:33 Order name: NT PRO-BNP; Complete Time: 23:28 [facility] 06/18 21:33 Order name: PT-INR; Complete Time: 23:10 [facility] 06/18 21:33 Order name: Troponin (emerg Dept Use Only); Complete Time: 23:28 [facility] 06/18 21:34 Order name: Procalcitonin; Complete Time: 23:55 [facility] 06/18 22:45 Order name: Manual Differential; Complete Time: 23:28 [facility] 06/18 23:57 Order name: Urine Microscopic Only [facility] 06/19 00:30 Order name: Urine Dipstick-Ancillary; Complete Time: 00:32 [facility] 06/19 01:02 Order name: Blood Culture Adult (2) [facility] 06/19 01:02 Order name: Urine Culture [facility] 06/19 03:45 Order name: COVID-19 : Document "Date of Symptom Onset" if Symptomatic. 5 06/18 21:33 Order name: XRAY Chest (1 view) [facility] 06/18 21:34 Order name: CT Abd/Pelvis - Without Contrast [facility] 06/19 04:18 Order name: SARS-COV-2 RT PCR [facility] 06/19 04:56 Order name: CBC with Automated Diff [facility] 06/19 05:28 Order name: Comprehensive Metabolic Panel [facility] 06/19 05:28 Order name: Troponin I [facility] 06/19 05:28 Order name: Magnesium [facility] 06/19 12:01 Order name: Troponin I [facility] 06/19 17:04 Order name: Blood Culture [facility] 06/19 20:52 Order name: Type and Screen [facility] 06/19 20:57 Order name: ABO/RH no charge [facility] 06/20 06:45 Order name: CBC with Automated Diff [facility] 06/20 07:26 Order name: Comprehensive Metabolic Panel [facility] 06/20 07:26 Order name: Magnesium [facility] 06/18 21:33 Order name: EKG; Complete Time: 21:34 [facility] 06/18 21:33 Order name: Cardiac monitoring; Complete Time: 23:37 [facility] 06/18 21:33 Order name: EKG - Nurse/Tech; Complete Time: 23:37 [facility] 06/18 21:33 Order name: IV Saline Lock; Complete Time: 22:11 [facility] 06/18 21:33 Order name: Labs collected and sent; Complete Time: 22:11 [facility] 06/18 21:33 Order name: O2 Per Protocol; Complete Time: 22:11 [facility] 06/18 21:33 Order name: O2 Sat Monitoring; Complete Time: 22:11 [facility] 06/18 21:33 Order name: Urine Dipstick-Ancillary (obtain specimen); Complete Time: 00:31 [facility] Administered Medications: 06/18 22:30 Drug: NS 0.9% 500 ml Route: IV; Rate: bolus; Site: right antecubital; 23:55 Follow up: Response: No adverse reaction; IV Intake: 500ml 06/19 00:10 Follow up: Response: No adverse reaction; IV Status: Completed infusion; IV Intake: rr5 500ml 06/18 23:37 Drug: NS 0.9% 1000 ml Route: IV; Rate: 100 ml/hr; Site: left antecubital; 06/19 02:10 Follow up: Response: No adverse reaction; IV Status: Infusion continued upon admission; rr5 IV Intake: 300ml 01:46 Drug: Rocephin (cefTRIAXone) 1 grams Route: IV; Rate: calculated rate; Site: right rr5 antecubital; 02:00 Follow up: Response: No adverse reaction; IV Status: Completed infusion; IV Intake: [id number] Disposition: 06/19/20 00:06 Hospitalization ordered by July Walter for Inpatient Admission. Preliminary diagnosis are Acute Renal Failure, Leukocytosis. - Bed requested for Telemetry/MedSurg (Inpatient). - Status is Inpatient Admission. em1 - Condition is Stable. - Problem is new. - Symptoms have improved. Signatures: Dispatcher [employer] EDMS Jarod Rdz em1 Kenyatta Coyne RN ITALO ss Evelyn Schmitt RN RN lp1 Jakub Khan, RADON INSPECTOR-C RADON INSPECTOR-Cla1 Maura Alvarez, RN RN cg Diego Mehta RN RN rr5 Jayson Turpin MD MD 7 Avsi Smalls RN RN zb Corrections: (The following items were deleted from the chart) 01:12 00:06 Hospitalization Ordered by July Walter MD for Inpatient Admission. Preliminary cg diagnosis is Acute Renal Failure; Leukocytosis. Bed requested for Telemetry/MedSurg (Inpatient). Status is Inpatient Admission. Condition is Stable. Problem is new. Symptoms have improved. mh7 06/20 12:01 05 01:12 06/19/2020 00:06 Hospitalization Ordered by July Walter MD for Inpatient ss Admission. Preliminary diagnosis is Acute Renal Failure; Leukocytosis. Bed requested for [facility] ER [facility]. Status is Inpatient Admission. Condition is Stable. Problem is new. Symptoms have improved. cg 06/20 13:22 12:01 06/19/2020 00:06 Hospitalization Ordered by July Walter MD for Inpatient em1 Admission. Preliminary diagnosis is Acute Renal Failure; Leukocytosis. Bed requested for Telemetry/MedSurg (Inpatient). Status is Inpatient Admission. Condition is Stable. Problem is new. Symptoms have improved. ss
--- NOTE | 2020-06-19 00:07 | ER ---
Nurse's Notes [facility] Name: Norma Weiss Age: 75 yrs Sex: Female : 1945 Arrival Date: 06/18/2020 Time: 20:29 Bed 16 Private MD: Diagnosis: Acute Renal Failure;Leukocytosis Presentation: 06/18 20:30 Chief complaint: EMS states: Called for patient with critical labs, on admitting lab lp1 work; Patient A/O x3; O2 dependent. Coronavirus screen: Client denies travel out of the [place] in the last 14 days. At this time, the client does not indicate any symptoms associated with coronavirus-19. Ebola Screen: No symptoms or risks identified at this time. Onset of symptoms was June 18, 2020. Transition of care: patient was received from [facility] setting [facility] ([facility]. 20:30 Method Of Arrival: EMS: [facility] lp1 20:30 Acuity: JEMAL 3 lp1 21:18 Initial Sepsis Screen: Does the patient meet any 2 criteria? No. Patient's initial lp1 sepsis screen is negative. Does the patient have a suspected source of infection? No. Patient's initial sepsis screen is negative. Risk Assessment: Do you want to hurt yourself or someone else? Patient reports no desire to harm self or others. Historical: - Home Meds: 20:44 amlodipine 10 mg tab 1 tab once daily [Active]; aspirin 81 mg Oral TbEC 1 tab once lp1 daily [Active]; atorvastatin 40 mg Oral tab 1 tab once daily [Active]; chlothalidone 25 mg daily 1 tab daily [Active]; clonidine HCl 0.3 mg Oral tab 1 tab three times a day [Active]; lisinopril 20 mg Oral tab 1 tab twice a day [Active]; metoprolol tartrate 50 mg Oral tab 1 tab 2 times per day [Active]; Symbicort inhalation [Active]; Tradjenta 5 mg Oral tab 1 tab once daily [Active]; Ventolin HFA 90 mcg/actuation Nebulizer HFAA 1 puff every 4 hours [Active]; - PMHx: 20:44 COPD; Hyperlipidemia; Hypertension; lp1 - Immunization history:: Adult Immunizations up to date. - Social history:: Smoking status: unknown. Screenin:17 Abuse screen: Denies threats or abuse. Denies injuries from another. Nutritional lp1 screening: No deficits noted. Tuberculosis screening: No symptoms or risk factors identified. Fall Risk Fall in past 12 months (25 points). Secondary diagnosis (15 points) No IV (0 pts). Ambulatory Aid- None/Bed Rest/Nurse Assist (0 pts). Gait- Weak (10 pts.). Mental Status- Oriented to own ability (0 pts). Assessment: 21:13 General: Appears in no apparent distress. uncomfortable, Behavior is anxious, Reports lp1 feeling ill for 2-3 days, fatigue for 2-3 days. Pain: Complains of pain in back. Neuro: Level of Consciousness is awake, alert, obeys commands, Oriented to person, place, time, situation. Cardiovascular: Patient's skin is warm and dry. Respiratory: Reports cough that is non-productive, Airway is patent Respiratory effort is shallow, Respiratory pattern is regular, symmetrical, Breath sounds with crackles in left lower lobe. GI: Abdomen is round non-distended. : Feliz in place to gravity drainage. Derm: Skin is fragile, is thin. Musculoskeletal: Range of motion: unable to assess rom at this time. 21:20 EENT: Reports sore throat. lp1 21:30 Reassessment: transfer report placed on chart. zb 22:30 Reassessment: Patient appears in no apparent distress at this time. Patient and/or zb family updated on plan of care and expected duration. Pain level reassessed. patient repositioned. 23:38 Reassessment: Patient appears in no apparent distress at this time. Patient and/or zb family updated on plan of care and expected duration. Pain level reassessed. patient repositioned. 06/19 00:00 Reassessment: blood pressure low. bolus ordered. ecp aware. zb 00:05 Reassessment: Patient appears in no apparent distress at this time. Patient and/or zb family updated on plan of care and expected duration. Pain level reassessed. removed old feliz, replaced with new 16 F. patient tolerated well. no distress. urine collected and sent to lab. new diaper placed. 00:45 Reassessment: patient states she would like some pain medication for her back and zb something for her sore throat notified ecp. 02:00 Reassessment: Patient appears in no apparent distress at this time. Patient and/or rr5 family updated on plan of care and expected duration. Pain level reassessed. for ER hold vital signs taken and recorded. Vital Signs: 06/18 21:04 BP 92 / 72; Pulse 102; Resp 20; Temp 97.7; Pulse Ox 98% on 2 lpm NC; Weight 63.5 kg; zb Height 5 ft. 6 in. (167.64 cm); Pain 10/10; 22:55 BP 90 / 65; Pulse 104; Resp 20; Pulse Ox 96% on 2 lpm NC; zb 23:38 BP 107 / 52; Pulse 108; Resp 20; Pulse Ox 99% on 2 lpm NC; zb 06/19 00:00 BP 89 / 59; Pulse 93; Resp 19; Pulse Ox 97% on 2 lpm NC; zb 00:23 BP 98 / 70; Pulse 98; Resp 20; Pulse Ox 96% on 2 lpm NC; zb 02:00 BP 116 / 62; Pulse 102; Resp 19; Temp 97.8; Pulse Ox 96% 2 lpm ; rr5 06/18 21:04 Body Mass Index 22.60 (63.50 kg, 167.64 cm) zb ED Course: 06/18 20:29 Patient arrived in ED. mw2 20:32 Triage completed. lp1 20:42 Jayson Turpin MD is Attending Physician. mh7 20:43 Evelyn Schmitt, RN is Primary Nurse. lp1 21:17 Patient has correct armband on for positive identification. Bed in low position. Call lp1 light in reach. Side rails up X 1. Pulse ox on. NIBP on. Door closed. Noise minimized. 22:37 CT Abd/Pelvis - Without Contrast In Process Unspecified. EDMS 22:59 XRAY Chest (1 view) In Process Unspecified. EDMS 06/19 00:05 July Walter MD is Hospitalizing Provider. mh7 00:20 Inserted saline lock: 22 gauge in right antecubital area, using aseptic technique. rr5 ,using aseptic technique. inserted by [facility]. 00:30 Arm band placed on. rr5 00:50 COVID swab sent to lab. rr5 01:20 First set of blood cultures drawn by me. rr5 01:40 Inserted saline lock: 20 gauge in right hand, using aseptic technique. Blood collected. rr5 01:40 Second set of blood cultures drawn by me. rr5 02:08 No provider procedures requiring assistance completed. Patient admitted, IV remains in rr5 place. intact, No redness/swelling at site. 07:09 Primary Nurse role handed off by Evelyn Schmitt RN 07:30 Tigist Chow RN is Primary Nurse. 2 19:16 Primary Nurse role handed off by Tigist Chow RN [facility] 06/20 07:18 Elliott Bautista RN is Primary Nurse. em Administered Medications: 06/18 22:30 Drug: NS 0.9% 500 ml Route: IV; Rate: bolus; Site: right antecubital; 23:55 Follow up: Response: No adverse reaction; IV Intake: 500ml 06/19 00:10 Follow up: Response: No adverse reaction; IV Status: Completed infusion; IV Intake: rr5 500ml 06/18 23:37 Drug: NS 0.9% 1000 ml Route: IV; Rate: 100 ml/hr; Site: left antecubital; 06/19 02:10 Follow up: Response: No adverse reaction; IV Status: Infusion continued upon admission; rr5 IV Intake: 300ml 01:46 Drug: Rocephin (cefTRIAXone) 1 grams Route: IV; Rate: calculated rate; Site: right rr5 antecubital; 02:00 Follow up: Response: No adverse reaction; IV Status: Completed infusion; IV Intake: [id number] Intake: 06/18 23:55 IV: 500ml; Total: 500ml. zb 06/19 00:10 IV: 500ml; Total: 1000ml. rr5 02:00 IV: 10ml; Total: 1010ml. rr5 02:10 IV: 300ml; Total: 1310ml. rr5 Outcome: 00:06 Decision to Hospitalize by Provider. mh7 02:08 Admitted to ER Hold. Please see [facility] for further documentation. rr5 02:08 Condition: stable 02:08 Instructed on the need for admit. 06/20 13:22 Patient left the ED. em1 Signatures: Dispatcher [employer] EDEvelin Morel Elliott Bautista, Jarod Erwin RN em1 Evelyn Schmitt, RN RN lp1 Tigist Chow RN RN 2 Dave Forman 2 Diego Mehta RN RN rr5 Jayson Turpin MD MD 7 Avis Smalls RN RN zb Corrections: (The following items were deleted from the chart) 06/18 21:19 21:13 General: Appears in no apparent distress. uncomfortable, Behavior is anxious, lp1 lp1 21:19 21:13 Respiratory: Airway is patent Respiratory effort is shallow, Respiratory pattern lp1 is regular, symmetrical, lp1 23:56 21:04 BP 92 / 72; Pulse 102bpm; Resp 20bpm; Pulse Ox 98% 2 lpm Nasal Cannula; 63.5 kg; zb Height 5 ft. 6 in.; BMI: 22.6; Pain 10/10; lp1 06/19 00:48 06/18 23:38 Reassessment: patient repositioned. zb zb 06/19 00:48 06/18 22:30 Reassessment: patient repositioned. zb zb 06/19 00:48 00:05 Reassessment: removed old feliz, replaced with new 16 F. patient tolerated well. zb no distress. urine collected and sent to lab. zb
[2020-06-19 00:30] LABS: Urine Blood 3+ (Negative); Urine Glucose Negative (Negative); Urine Protein Trace (Negative); Urine Specific Gravity 1.015 (1.005-1.030)
[2020-06-19] MEDS ORDERED: CEFTRIAXONE/SWI 1gm 1 GM/10 ML SYR ONE (01:07)
[2020-06-19 01:08] LABS: Urine Bacteria >50 /HPF (<20); Urine RBC >50 /HPF (NONE SEEN)
[2020-06-19 01:09] LABS: Urine Urothelial Cells <5 /HPF (NONE SEEN)
--- NOTE | 2020-06-19 01:13 | P.HP ---
Certification for Inpatient Patient admitted to: Inpatient With expected LOS: >2 Midnights Patient will require the following post-hospital care: None Practitioner: I am a practitioner with admitting privileges, knowledge of patient current condition, hospital course, and medical plan of care. Services: Services provided to patient in accordance with Admission requirements found in Title 42 Section 412.3 of the Code of Federal Regulations Patient History Date of Service: 06/19/20 History of Present Illness: 75-year-old female with history of chronic hyponatremia, COPD, CKD 3, renal mass, chronic diastolic congestive heart failure, hypertension, atrial fibrillation, diabetes mellitus type 2 presents emergency department for abnormal labs. Patient was recently seen in the hospital for hyponatremia and had prolonged hospital stay with discharged on 06/12/2020, patient was discharged to residential. [facility] repeat labs today which demonstrated acute worsening in renal function, at discharge patient is creatinine was 2.02, free evaluation demonstrated a creatinine of 4.69. Patient was evaluated in the emergency department, labs significant for white blood cell count 18.8 hemoglobin 9.6 hematocrit 29.6 creatinine 4.42 BUN 196 GFR 10 sodium 133 troponin 0.05 B and P 2854 patient with Douglass catheter in place, urinalysis demonstrates 3+ leukocytes. CT abdomen pelvis otherwise negative for acute findings, Re demonstration of renal mass noted. Patient currently awake, alert, oriented x3, appears dry, mildly hypotensive. Very high BUN to creatinine ratio, believe this is likely related to dehydration. Will admit for further evaluation and management. Allergies No Known Allergies Allergy (Unverified 11/12/11 19:53) Home Medications: Aspirin 1 tab PO DAILY 06/06/20 Atorvastatin Calcium [Lipitor] 1 tab PO DAILY 06/06/20 Linagliptin [Tradjenta] 1 tab PO DAILY 06/06/20 Apixaban [Eliquis] 5 mg PO BID #60 tablet 06/12/20 Ensure Enlive 237 ml PO BID #60 can 06/12/20 Metoprolol Tartrate [Lopressor*] 25 mg PO BID 6AM 6PM #60 tab 06/12/20 Mometasone/Formoterol [Dulera 100 Mcg/5 Mcg Inhaler] 2 puff IH BID #1 inhaler 06/12/20 Nicotine [Nicoderm*] 21 mg TD DAILY #30 patch.td24 06/12/20 Tamsulosin [Flomax*] 0.4 mg PO BID #60 cap 06/12/20 predniSONE [Prednisone*] 20 mg PO DAILY #14 tab 06/12/20 - Past Medical/Surgical History -: COPD -: Hypertension -: Hyperlipidemia -: Chronic diastolic congestive heart failure -: Atrial fibrillation -: Chronic hyponatremia -: Left renal mass -: CKD -: Tobacco abuse -: Atrophic right kidney -: Unknown Psychosocial/ Personal History: Currently resides in residential - Family History Sister -: Cancer Notes: Rheumatoid arthritis - Social History Alcohol use: No CD- Drugs: No Caffeine use: Yes Place of Residence: Home Review of Systems 10-point ROS is otherwise unremarkable General: Weakness, Malaise Physical Examination - Physical Exam General: Alert, In no apparent distress HEENT: Atraumatic, PERRLA, Other (Mucous membranes dry) Neck: Supple, 2+ carotid pulse no bruit, No LAD Respiratory: Clear to auscultation bilaterally, Normal air movement Cardiovascular: Regular rate/rhythm, Normal S1 S2 Gastrointestinal: Normal bowel sounds, No tenderness Musculoskeletal: No tenderness Integumentary: No rashes Neurological: Normal speech, Normal strength at 5/5 x4 extr, Normal tone, Normal affect - Studies Laboratory Data (last 24 hrs) 06/18/20 22:05: PT 20.6 H, INR 1.78 06/18/20 22:05: WBC 18.80 H, Hgb 9.6 L, Hct 29.6 L, Plt Count 356 06/18/20 22:05: Sodium 133 L, Potassium 4.4, BUN 196 H, Creatinine 4.42 H, Gl ucose 112 H, Magnesium 2.5 H, Total Bilirubin 0.8, AST 17, ALT 19, Alkaline Phosphatase 77 Assessment and Plan - Problems (Diagnosis) (1) Acute renal failure Onset Date: ~06/19/20 Current Visit: Yes Status: Acute Plan: Nephrology consulted, continue with IV hydration overnight. Hypertension, patient given bolus the emergency department. Continue with IV fluids. DVT prophylaxis with heparin 5000 subcutaneous twice daily. Qualifiers: Acute renal failure type: unspecified Qualified Code(s): N17.9 - Acute kidney failure, unspecified (2) Hypotension Onset Date: ~06/19/20 Current Visit: Yes Status: Acute Plan: Continue with IV fluids, obtain orthostatics vital signs. Patient does not appear septic. Qualifiers: Hypotension type: idiopathic hypotension Qualified Code(s): I95.0 - Idiopathic hypotension (3) CKD (chronic kidney disease) Current Visit: Yes Status: Acute Qualifiers: Chronic kidney disease stage: stage 4 (severe) Qualified Code(s): N18.4 - Chronic kidney disease, stage 4 (severe) (4) Atrial fibrillation Onset Date: Unknown Current Visit: No Status: Acute Plan: Obtain and continue home medications, monitor on telemetry. Rate controlled at this time. Qualifiers: Atrial fibrillation type: paroxysmal Qualified Code(s): I48.0 - Paroxysmal atrial fibrillation (5) COPD (chronic obstructive pulmonary disease) Current Visit: No Status: Acute Plan: Stable, continue home meds. (6) UTI (urinary tract infection) due to urinary indwelling Douglass catheter Onset Date: ~06/19/20 Current Visit: Yes Status: Acute Plan: Continue IV Rocephin, blood and urine cultures obtained. Qualifiers: Indwelling urinary catheter type: indwelling urethral catheter Encounter type: initial encounter Qualified Code(s): T83.511A - Infection and inflammatory reaction due to indwelling urethral catheter, initial encounter; N39.0 - Urinary tract infection, site not specified - Plan 1. Admit to tele floor 2. Nephrology consulted for management of PRAVEEN superimposed on CKD 4, continue with IV fluids. 3. Rocephin for urine tract infection, blood in urine cultures obtained, will need to follow 4. DVT prophylaxis with heparin 5000 units subcutaneous twice daily 5. Obtain and continue home medications for other chronic health problems. Discharge Plan: Home Plan to discharge in: Greater than 2 days - Advance Directives Does patient have a Living Will: No Does patient have a Durable POA for Healthcare: No - Code Status/Comfort Care Code Status Assessed: Yes (Full code) Critical Care: No Time Spent Managing Pts Care (In Minutes): 55
[2020-06-19] MEDS ORDERED: ONDANSETRON 4 MG/2 ML VIAL IV PRN (02:18)
[2020-06-19] MEDS ORDERED: NA CHLORIDE 0.9% 1,000 ML ONE ×2 (02:18→07:04)
[2020-06-19] MEDS: NA CHLORIDE 0.9% 1,000 ML IV SCH ×2 (02:18→12:18)
[2020-06-19 03:28] VITALS: BMI 22.4
[2020-06-19 04:38] LABS: Absolute Lymphocytes (CBC) 0.7 K/uL (0.7-4.9); Basophils % 0.2 % (0-1.3); Hematocrit 24.2 % (36.0-45.0); Lymphocytes % 5.2 % (15.3-44.8); MPV 9.1 fL (7.6-11.3); RBC Red Blood Cell Count 2.87 M/uL (3.86-4.86)
[2020-06-19 05:28] LABS: Albumin 2.1 g/dL (3.4-5.0); Bilirubin Total 0.5 mg/dL (0.2-1.0); Magnesium 2.2 mg/dL (1.8-2.4); Potassium 4.2 mmol/L (3.5-5.1); Troponin I 0.06 ng/mL (0.0-0.045)
[2020-06-19] MEDS ORDERED: NA CHLORIDE 0.9% 500 ML IV ONE (05:32)
[2020-06-19] MEDS ORDERED: PNEUMOCOCCAL VACCINE 0.5 ML IMVAC ONE (08:00)
[2020-06-19] MEDS ORDERED: HEPARIN 5000 UNIT/ML 1 ML VIAL ONE (08:21)
--- NOTE | 2020-06-19 08:28 | RAD REPORT ---
EXAM DESCRIPTION: RAD - Chest Single View - 06/18/2020 10:59 pm CLINICAL HISTORY: COUGH Chest pain. COMPARISON: Chest Single View dated 06/08/2020; Chest Single View dated 06/07/2020; Chest Single View dated 06/04/2020; Chest Pa And Lat (2 Views) dated 08/24/2016 FINDINGS: Portable technique limits examination quality. The lungs are emphysematous but grossly clear. The heart is upper limit of normal in size. No displac ed fractures. IMPRESSION: COPD.
[2020-06-19] MEDS ORDERED: CEFTRIAXONE 1 GM/NS 50 ML 1 GM/50 ML BAG IV SCH (09:00)
[2020-06-19] MEDS ORDERED: HEPARIN 5000 UNIT/ML 1 ML VIAL SQ SCH (09:00)
[2020-06-19] MEDS ORDERED: CEFTRIAXONE/SWI 1gm 1 GM/10 ML SYR IV SCH (09:00)
--- NOTE | 2020-06-19 09:18 | EKG ---
Test Date: 2020-06-18 Test Time: 22:48:33 Teletype Operator: JASON MEASUREMENT RESULTS: Intervals: Rate: 103 ME: QRSD: 88 QT: 324 QTc: 424 [place]: P: ME: QRS: 92 T: 85 INTERPRETIVE STATEMENTS: Atrial fibrillation with rapid ventricular response Rightward axis Pulmonary disease pattern Nonspecific ST abnormality Abnormal ECG Compared to ECG 06/04/2020 15:52:05 Right-axis deviation now present ST (T wave) deviation now present Sinus rhythm no longer present Atrial premature complex(es) no longer present First degree AV block no longer present Myocardial infarct finding no longer present Electronically Signed On 06-19-20 09:17:08 CDT by John York
--- NOTE | 2020-06-19 15:47 | RAD REPORT ---
EXAM DESCRIPTION: CT Abdomen Pelvis Wo Contrast CLINICAL HISTORY: 75 years Female acute renal failure, Elev. WBC TECHNIQUE: Contiguous axial images obtained through the abdomen and pelvis without intravenous contr ast administration. Coronal and sagittal reformatted images provided. This CT exam was performed according to our departmental dose-optimization program, which includes on e or more of the following dose reduction techniques: automated exposure control, adjustment of the m A and/or kV according to patient size, and/or use of iterative reconstruction technique. COMPARISON: No prior exams provided for comparison. FINDINGS: There is a 3.6 x 2.6 x 8.6 cm left rectus abdominis hematoma. No other visualized abdomina l wall abnormality. No acute fracture or aggressive osseous lesion. The right kidney demonstrates moderate to severe atrophy without hydronephrosis. Subcentimeter cystic foci noted. The left kidney is not atrophic however there is a 5.0 x 5.2 x 5.7 cm mass arising from its midpole w hich demonstrates heterogeneous attenuation and scattered calcifications, concerning for a primary re nal neoplasm. The left kidney also contains several other small simple and hyperdense cysts. No left- sided hydronephrosis. Trace left perinephric stranding. Douglass catheter in the urinary bladder. Small pericardial effusion. The lung bases are clear. The unenhanced liver, biliary tree, gallbladder, pancreas, spleen, and adrenal glands are normal. There is no bowel inflammation, obstruction, free intraperitoneal air, or ascites. Incidental note ma de of a lipoma at the ileocecal valve. Prior hysterectomy and suspected appendectomy. Extensive atherosclerosis without abdominal aortic aneurysm or retroperitoneal hemorrhage. Stents in the bilateral common iliac arteries. IMPRESSION: 8.6 cm hematoma in the left rectus abdominis muscle. 5.7 cm left renal mass concerning for a primary neoplasm. Atrophic right kidney. Genitourinary follow -up recommended. Electronically signed by: Zulay Eduardo MD 06/18/2020 11:20 PM CDT Due to temporary technical issues with the PACS/Fluency reporting system, reports are being signed by the in house radiologists without review as a courtesy to insure prompt reporting. The interpreting radiologist is fully responsible for the content of the report.
[2020-06-19] MEDS ORDERED: predniSONE 20 MG TAB PO ONE (16:00)
[2020-06-19] MEDS ORDERED: SODIUM CHLORIDE 0.9% 10ML INJ IV PRN (17:01)
[2020-06-19] MEDS ORDERED: PANTOPRAZOLE 40 MG INJ IVP ONE (18:00)
[2020-06-19] MEDS ORDERED: D5 0.9 NS 1,000 ML IV ONE (18:29)
[2020-06-19] MEDS ORDERED: PANTOPRAZOLE 40 MG INJ ONE (18:29)
[2020-06-19] MEDS ORDERED: PIPER/TAZO/NS 2.25gm 2.25 GM/50 ML BAG ONE (18:29)
[2020-06-19] MEDS: PANTOPRAZOLE INJ 80 MG in NA CHLORIDE 0.9% 250 ML IV SCH (18:55)
[2020-06-19] MEDS: D5 0.9 NS 1,000 ML IV SCH (18:55)
[2020-06-19] MEDS: PIPER/TAZO/NS 2.25gm 2.25 GM/50 ML BAG IVPB SCH (18:55)
--- NOTE | 2020-06-19 19:35 | CON ---
History Of Present Illness: The patient seen in emergency room at [facility]. The hernesto ent is a 75-year-old female, who presented to the hospital after being in prison for about a co uple of weeks. The son is by the bedside. The patient is alert, awake, and able to talk, and then g argenis me some answers. The patient is looking quite ill currently. She has some dark stool, that is l ooking liquid on the bedsheet. She has a Douglass catheter that is in place right now with cloudy urine in the bag, but has stool all over the catheter. The patient is able to talk, but gets short of jonathan ath with speaking. She states that she has been smoking about 2 to 3 pack of cigarettes for several years, well over 20 years. She says that she has not been eating and drinking pretty much anything u p for about 2 weeks or so, not clear as to why she stopped drinking and eating, but she had a fall, f or which she was at a prison for having some rehabilitation. The patient states that she has n ot been able to do rehabilitation because of weakness and also not been able to eat and drink. She p resented to the hospital today with significant weakness and with low blood pressures. The patient h as been started on normal saline. On arrival, creatinine was 4.42 and BUN was 196. Her BUN and crea tinine now are down to 182 and 3.78 after getting normal saline 100 cc/hour overnight. The patient h as a history of hyponatremia. Her sodium however is at 138 right now. She has a history of COPD and she says she has not smoked for about 14 days or so since she has been at the prison. She has a history of congestive heart failure, heart failure with coronary artery disease. She says that th eugene attempted to stent some of her arteries, but the arteries were small and they too just create aimee aterals and now stenting could not be done, so she states with her coronary artery disease, she has a trial fibrillation history, she has diabetes mellitus, she has a history of chronic kidney disease, n ot exactly sure what her baseline creatinine is. There is some documentation that recently she had h er creatinine around 2. Around that time, she was admitted to the prison. The patient also st ates that she has had the Douglass catheter in for about almost 2 weeks now. Her urinalysis does show b acteria, WBCs, and leuk esterase positive. The urine culture and blood culture have been sent and ar e pending. Allergies: NKDA. Medications: Home medications in the chart and reviewed. Past Medical History: COPD, hypertension, hyperlipidemia, chronic diastolic heart failure, tobacco a buse, chronic steroid use, recently been on steroids for 14 days. Family History: Sister had a rheumatoid arthritis. Social History: No alcohol, no drugs, but does smoke cigarettes about 2 packs a day for over 20 year s. Physical Examination: The patient is alert, but she looks ill. She has dry skin, dry mouth. She has wrinkles on the leg s he has no edema. She has some liquid stool on the bedsheet. Douglass is in place, but her catheter see ms to be dirty with stool. The bag for the urine is cloudy. The patient is able to move all 4 extre mities. She is able to give answers to questions. She does seem to have bilateral weakness in gener al. Laboratory Data: Reviewed. WBC count is around 14.2, hemoglobin and hematocrit are 7.7/24.2, platel et count is 306. BUN has gone down from 196 to 182, creatinine has gone up from 4.42 to 3.78. Assessment And Plan: 1.The patient is quite ill and close to critical condition. I have discussed this with the son and the patient. Son wanted to take the patient home initially, explained to him that this was not a goo d idea given the patient's overall condition and issues going on. The patient and the son both agree . At this point, I would recommend increasing the IV fluids slightly and adding D5 to it, so D5 norm al saline at 125 cc/hour. Given the fact that the patient has not been eating and drinking well, we will also give her some thiamine to correct any B1 deficiency and while we are giving her dextrose wi th fluids, hopefully her blood pressure will further improve. Her hypertension could partly be from prerenal azotemia and from volume depletion, but also because she has been on steroids. 2.Chronic obstructive pulmonary disease history. The patient does seem to get short of breath and h ad some wheezing and her lung sounds are decreased. In general, she seems to have a COPD exacerbatio n going on. She has been on prednisone recently. Given her low blood pressure, it could also be bec ause of the fact that she has been on prednisone and her adrenals are suppressed. At this point, we would recommend starting prednisone or Solu-Medrol at a low dose, about 20 mg or so b.i.d. of prednis one and then consider tapering that down. Obviously there is a risk with bleeding and other issues w ith prednisone, but given the fact that she has been on it and now blood pressures are low and states perhaps starting back monitoring blood pressure with hopefully a quick taper. Pulmonary referral or consultation may also be beneficial, especially if condition worsens. 3.Hypotension. Continue overall volume repletion and also monitor for GI bleed. The patient's hemo globin is low. She would benefit from transfusion. 4.Anemia, question from chronic kidney disease, but at this point the patient seems to also with GI bleed. I would recommend guaiac checking stools and considering IV PRBC transfusion in case the bloo d counts drop any further. Given the fact that patient's concentrated and dry and still her hemoglob in is 7.7, looks like she is going to need some blood transfusion going forward. We would recommend 1 unit of blood for 4 hours and close monitoring of blood pressure. 5.Chronic kidney disease. At this point, she is in PRAVEEN with significant azotemia. Question if the patient is having some GI bleed including the urea appearance in addition to her severe volume deplet ion. 6.Paroxysmal atrial fibrillation. At this point, the patient seems to be stable. She got an irregu lar heart rate on my exam. This is definitely a concern and the patient needs to be monitored. 7.Urinary tract infection, question sepsis. Blood cultures and urine cultures are pending. At this point given the patient's overall condition, we would recommend broadening the antibiotics while cul tures are pending. We would recommend giving Zosyn and consider giving a gram of vancomycin while th e blood cultures are pending. I have discussed the case with Dr. Walter, who will also be seeing the patient today and will be adjust ing orders as they have recommended after his assessment. /CLAUDIA Voice ID: [id number] Report ID: [id number]
[2020-06-19] MEDS ORDERED: predniSONE 20 MG TAB ONE (19:54)
[2020-06-19] MEDS ORDERED: NA CHLORIDE 0.9% 250 ML ONE (22:36)
[2020-06-20] MEDS: PIPER/TAZO/NS 2.25gm 2.25 GM/50 ML BAG IVPB SCH ×3 (01:00→18:04)
[2020-06-20] MEDS ORDERED: PIPER/TAZO/NS 2.25gm 2.25 GM/50 ML BAG ONE ×2 (02:46→09:16)
[2020-06-20] MEDS: PANTOPRAZOLE INJ 80 MG in NA CHLORIDE 0.9% 250 ML IV SCH ×3 (04:00→15:48)
[2020-06-20] MEDS ORDERED: NA CHLORIDE 0.9% 250 ML ONE (04:48)
[2020-06-20] MEDS ORDERED: PANTOPRAZOLE 40 MG INJ ONE (04:48)
[2020-06-20 06:42] LABS: Absolute Lymphocytes (CBC) 0.5 K/uL (0.7-4.9); Basophils % 0.4 % (0-1.3); Hematocrit 26.8 % (36.0-45.0); Lymphocytes % 4.1 % (15.3-44.8); MPV 9.2 fL (7.6-11.3); RBC Red Blood Cell Count 3.13 M/uL (3.86-4.86)
[2020-06-20 07:25] LABS: Bilirubin Total 0.7 mg/dL (0.2-1.0); Magnesium 2.2 mg/dL (1.8-2.4); Potassium 3.9 mmol/L (3.5-5.1); Protein, Total 4.7 g/dL (6.4-8.2)
[2020-06-20] MEDS: D5 0.9 NS 1,000 ML IV SCH ×2 (08:00)
[2020-06-20] MEDS: THIAMINE 200 MG/2 ML INJ IVP SCH (09:00)
[2020-06-20] MEDS ORDERED: PIPER/TAZO/NS 3.375gm 0 GM/0 ML BAG ONE (09:02)
[2020-06-20] MEDS ORDERED: THIAMINE 200 MG/2 ML INJ ONE (09:35)
[2020-06-20] MEDS: D5 0.45 NS 1,000 ML IV SCH ×2 (14:06→21:55)
[2020-06-20] MEDS: METHYLPREDNISOLONE 125 MG INJ IV SCH ×2 (14:06→18:03)
--- NOTE | 2020-06-20 18:47 | PN ---
Subjective: The patient is seen in emergency room hold. She has been admitted to second floor and w ill likely be moving there. She is more alert compared to yesterday but still skin looks dry. Yury davidson seems still a little bit labored with difficulty with moving air and some tightness. She did ge t a dose of prednisone yesterday. She is oxygenating okay on 2 L nasal cannula. Objective: Vital Signs: Her vitals are still on the lower side with systolic blood pressure running in mid 90s. She is afebrile. Her O2 sats with 2 L nasal cannula are in 90s. Temperature is afebri le at 98.2, pulse is about 80, respirations around 14 to 18. Lungs: With decreased breath sounds with few wheezing. Abdomen: Soft. Extremities: Reveal no edema. Skin: Very dry and wrinkled. Lab Data: Reviewed. The patient's labs show hemoglobin at 9.1, hematocrit at 26.8, WBC count of 11. 2, platelet count of 225. Her WBC count seems to have improved. Her hemoglobin improved. She has h ad a blood transfusion last night. Sodium 146, potassium 3.9, chloride 114, bicarb 21, BUN and creat inine at 162/3.14, glucose is 102. BUN and creatinine are improving. She also on her imaging study has a renal mass about 5.3 cm. Assessment And Plan: 1.Acute renal failure in the setting of prerenal azotemia, volume depletion. At this point, patient is on IV fluids with D5 normal saline at 125 cc an hour. We will change this to D5 half-normal sali ne at 125 cc an hour to allow patient to get a little bit more free water and hopefully that will imp rove her sodium along with a BUN and correct her dehydration along with repleting some volume. 2.Shortness of breath, likely having some chronic obstructive pulmonary disease exacerbation. The p atient does not seem to be volume overloaded. Her x-ray does show that her lungs has emph ysema. The patient has had a smoking history for a long time. Discussed with the hospitalist. We w ill consider starting some steroids with care. The patient and family advised about risks and benefi ts of prednisone. 3. . Should improve with volume repletion. Could also be secondary to some adrenal insuff iciency. The steroids will help with this as well. 4. . Replete free water with change in IV fluids. 5.Renal mass. Patient states that she has seen a urologist in the past, was advised that this could be cancer and was advised to have a nephrectomy. The patient is clear that she does not want a neph rectomy. She had refused it at that time. She understands this may be cancer, may metastasize and m ay lead to her , but does not want an evaluation for nephrectomy or treatment of this. She also states that she would not want dialysis and wants IV fluids and medications and that sort of care, b ut would not want any invasive treatments with surgery from nephrectomy, so given that she has refuse d urology consultation. /CLAUDIA Voice ID: [id number] Report ID: [id number]
[2020-06-21] MEDS: PANTOPRAZOLE INJ 80 MG in NA CHLORIDE 0.9% 250 ML IV SCH ×4 (01:06→20:00)
[2020-06-21] MEDS: METHYLPREDNISOLONE 125 MG INJ IV SCH ×4 (01:07→20:44)
[2020-06-21] MEDS: PIPER/TAZO/NS 2.25gm 2.25 GM/50 ML BAG IVPB SCH ×2 (01:07→09:13)
[2020-06-21] MEDS: D5 0.45 NS 1,000 ML IV SCH ×4 (05:40→22:23)
[2020-06-21 06:14] LABS: Albumin 2.1 g/dL (3.4-5.0); Bilirubin Total 0.7 mg/dL (0.2-1.0); Magnesium 2.1 mg/dL (1.8-2.4); Potassium 3.7 mmol/L (3.5-5.1); Protein, Total 5.2 g/dL (6.4-8.2)
[2020-06-21 06:15] LABS: Absolute Lymphocytes (CBC) 0.2 K/uL (0.7-4.9); Basophils % 0.1 % (0-1.3); Hematocrit 30.5 % (36.0-45.0); Lymphocytes % 1.7 % (15.3-44.8); MPV 9.1 fL (7.6-11.3)
[2020-06-21 08:11] LABS: Blood Morphology Comment NOT SEEN (NOT SEEN); Platelet Estimate ADEQ
[2020-06-21] MEDS ORDERED: POLYETHYL GLY 3350 17 GM/DOSE PO SCH (09:00)
[2020-06-21] MEDS: THIAMINE 200 MG/2 ML INJ IVP SCH (09:15)
[2020-06-21] MEDS ORDERED: ALBUMIN HUMAN 25% 100 ML IV ONE (10:59)
--- NOTE | 2020-06-21 11:03 | P.PN ---
Subjective Date of Service: 06/20/20 Subjective: Improving Patient is more awake and alert today. Clinically she appears to be doing somewhat better. Review of Systems 10-point ROS is otherwise unremarkable Physical Examination - Vital Signs Temperature: 98.0 F Blood Pressure: 140/64 Pulse: 88 Respirations: 18 Pulse Ox (%): 98 - Physical Exam General: Alert, In no apparent distress, Oriented x2, Confused Respiratory: Diminished, Expiratory wheezes Cardiovascular: Regular rate/rhythm, Normal S1 S2, Systolic murmur Gastrointestinal: Normal bowel sounds, Soft and benign, Non-distended, No tenderness Musculoskeletal: No clubbing, No tenderness, Swelling Neurological: Sensation intact, Cranial nerves 3-12 intact, Abnormal strength - Studies Medications List Reviewed: Yes Assessment & Plan - Problems (Diagnosis) (1) Upper GI bleeding Current Visit: Yes Status: Acute (2) Acute renal failure Onset Date: ~06/19/20 Current Visit: Yes Status: Acute Qualifiers: Acute renal failure type: unspecified Qualified Code(s): N17.9 - Acute kidney failure, unspecified (3) Hypotension Onset Date: ~06/19/20 Current Visit: Yes Status: Acute Qualifiers: Hypotension type: idiopathic hypotension Qualified Code(s): I95.0 - Idiopathic hypotension (4) COPD (chronic obstructive pulmonary disease) Current Visit: No Status: Acute (5) Hyponatremia Current Visit: No Status: Resolved (6) Adrenal insufficiency Current Visit: Yes Status: Acute - Plan Plan: 1. Continue with IV hydration and PPI drip 2. Continue with IV antibiotics 3. Continue with pain control 4. NPO 5. Nephrology consultation/will try to get GI even though they are not on-call. Spoke to GI and at this time with patient's respiratory issues in renal insufficiency they want us to wait 24-48 hr. If persistent bleeding will do emergency endoscopy. If hemoglobin remains stable then we can continue to follow for outpatient endoscopy 6. Serial H&H, and we will monitor LFTs and lipase along with electrolytes. 7. GI and DVT prophylaxis Discharge Plan: Home Plan to discharge in: Greater than 2 days - Advance Directives Does patient have a Living Will: No Does patient have a Durable POA for Healthcare: No - Code Status/Comfort Care Code Status Assessed: Yes Code Status: Full Code Critical Care: No Time Spent Managing PTS Care (In Minutes): 35
--- NOTE | 2020-06-21 11:05 | P.PN ---
Date of Service: 06/21/20 Subjective Patient continues to improve with no new complaints. Review of Systems 10-point ROS is otherwise unremarkable Physical Examination - Vital Signs Reviewed - Physical Exam General: Alert, In no apparent distress, Oriented x2, Confused Respiratory: Diminished, Expiratory wheezes Cardiovascular: Regular rate/rhythm, Normal S1 S2, Systolic murmur Gastrointestinal: Normal bowel sounds, Soft and benign, Non-distended, No tenderness Musculoskeletal: No clubbing, No tenderness, Swelling Neurological: Sensation intact, Cranial nerves 3-12 intact, Abnormal strength Assessment & Plan - Problems (Diagnosis) (1) Upper GI bleeding Current Visit: Yes Status: Acute (2) Acute renal failure Onset Date: ~06/19/20 Current Visit: Yes Status: Acute Qualifiers: Acute renal failure type: unspecified Qualified Code(s): N17.9 - Acute kidney failure, unspecified (3) Hypotension Onset Date: ~06/19/20 Current Visit: Yes Status: Acute Qualifiers: Hypotension type: idiopathic hypotension Qualified Code(s): I95.0 - Idiopathic hypotension (4) COPD (chronic obstructive pulmonary disease) Current Visit: No Status: Acute (5) Hyponatremia Current Visit: No Status: Resolved (6) Adrenal insufficiency Current Visit: Yes Status: Acute - Plan Continue with plan of care as mentioned below 1. Continue with IV hydration and PPI drip 2. Continue with IV antibiotics 3. Continue with pain control 4. Advise a clear liquid diet at this time 5. Appreciate Nephrology consultation 6. Serial H&H, and we will monitor LFTs and lipase along with electrolytes. 7. GI and DVT prophylaxis
[2020-06-21] MEDS: AMOX/K CLAV 500 MG TAB PO SCH (20:44)
[2020-06-21] MEDS: ACETAMINOPHEN 500 MG TAB PO PRN (20:56)
--- NOTE | 2020-06-21 21:38 | P.PN ---
Date of Service: 06/21/20 Vital Signs Temp Pulse Resp BP Pulse Ox 98.8 F 101 H 20 140/75 93 06/21/20 16:00 06/21/20 16:00 06/21/20 16:00 06/21/20 16:00 06/21/20 16:00 Medications Acetaminophen (Acetaminophen 500 Mg Tab) 500 mg PO Q4HP PRN PRN Reason: Pain scale 2-4 (Mild) Last Admin: 06/21/20 20:56 Dose: 500 mg Documented by: Amoxicillin/Clavulanate Potassium (Amox/K Clav 500 Mg Tab) 500 mg PO BID [facility] Last Admin: 06/21/20 20:44 Dose: 500 mg Documented by: Pantoprazole Sodium 80 mg/ (Sodium Chloride) 250 mls @ 25 mls/hr IV Q10H [facility]; Protocol Last Admin: 06/21/20 20:00 Dose: Not Given Documented by: Dextrose/Sodium Chloride (Dextrose 5% O.45% Saline) 1,000 mls @ 70 mls/hr IV .[id number] [facility] Last Admin: 06/21/20 17:13 Dose: 1,000 mls Documented by: Methylprednisolone Sodium Succinate (Methylprednisolone 125 Mg Inj) 60 mg IV Q12HR [facility] Last Admin: 06/21/20 20:44 Dose: 60 mg Documented by: Ondansetron HCl (Ondansetron 4 Mg/2 Ml Vial) 4 mg IV Q6HP PRN PRN Reason: NAUSEA / VOMITING Sodium Chloride (Flush Normal Saline 10 Ml) 10 ml IV BID [facility] Last Admin: 06/21/20 20:45 Dose: Not Given Documented by: Sodium Chloride (Sodium Chloride 0.9% 10ml Inj) 10 ml IV UD PRN PRN Reason: Diluant Thiamine HCl (Thiamine 200 Mg/2 Ml Inj) 100 mg IVP DAILY [facility] Last Admin: 06/21/20 09:15 Dose: 100 mg Documented by: Microbiology Results 06/19/20 00:28 Catheterized Urine [place] Count - Preliminary >100,000 CFU/ML. 06/19/20 00:28 Catheterized Urine - Preliminary Escherichia Coli Assessment/ Plan: Nephrology No acute cardiac or pulmonary complaints. No CP or SOB. Feeling better this morning. No acute events overnight. Vitals, medications, blood work and imaging reviewed in the chart. NAD. MMM. Neck supple. CTA. RRR. Soft Abd. No C/C/E. No rash. AAO. Normal Speech. A/P: Continue the current POC and Medications other than the changes listed. AM Labs PRN. Recommend daily weight. Please see the orders for complete details. PRAVEEN likely hypovolemia CKD IV -Continue IVF Hypernatremia -IVF change D51/2NS Acidosis -Consider oral bicarb if worsens Hypocalcemia -Start Calcitriol DM II with CKD -Monitor BG Moderate malnutrition -Encourage nutrition -Continue MVI Anemia in chronic illness -Monitor H&H -Transfuse PRBC as needed -Consider Retacrit
[2020-06-22] MEDS: PANTOPRAZOLE INJ 80 MG in NA CHLORIDE 0.9% 250 ML IV SCH ×4 (00:08→21:38)
[2020-06-22] MEDS: D5 0.45 NS 1,000 ML IV SCH (05:37)
[2020-06-22 05:52] LABS: Absolute Lymphocytes (CBC) 0.3 K/uL (0.7-4.9); Basophils % 0.1 % (0-1.3); Hematocrit 31.2 % (36.0-45.0); Lymphocytes % 2.1 % (15.3-44.8); MPV 9.4 fL (7.6-11.3); RBC Red Blood Cell Count 3.61 M/uL (3.86-4.86)
[2020-06-22 06:01] LABS: Albumin 2.4 g/dL (3.4-5.0); Bilirubin Total 0.9 mg/dL (0.2-1.0); Magnesium 1.8 mg/dL (1.8-2.4); Potassium 3.7 mmol/L (3.5-5.1); Protein, Total 5.5 g/dL (6.4-8.2)
[2020-06-22 06:57] LABS: Anisocytosis SLIGHT; Blood Morphology Comment NOTED (NOT SEEN); Platelet Estimate ADEQ; White Blood Cell Scan OK (OK)
[2020-06-22 06:58] LABS: Burr Cells FEW
[2020-06-22] MEDS ORDERED: D5 0.45 NS 1,000 ML IV SCH (07:00)
[2020-06-22] MEDS: AMOX/K CLAV 500 MG TAB PO SCH ×2 (08:42→21:35)
[2020-06-22] MEDS: VITAMIN D 5,000 UNIT CAP PO SCH (08:42)
[2020-06-22] MEDS: CALCITROL 0.25 MCG CAP PO SCH (08:42)
[2020-06-22] MEDS: MULTIVITAMIN TAB PO SCH (08:42)
[2020-06-22] MEDS: THIAMINE 200 MG/2 ML INJ IVP SCH (08:42)
[2020-06-22] MEDS: METHYLPREDNISOLONE 125 MG INJ IV SCH ×2 (08:43→21:39)
[2020-06-22] MEDS: D5W 1,000 ML IV SCH ×3 (10:06→20:00)
--- NOTE | 2020-06-22 19:57 | P.PN ---
Date of Service: 06/22/20 Vital Signs Temp Pulse Resp BP Pulse Ox 97.8 F 97 H 22 H 152/68 H 91 06/22/20 16:00 06/22/20 16:00 06/22/20 16:00 06/22/20 16:00 06/22/20 16:00 Medications Acetaminophen (Acetaminophen 500 Mg Tab) 500 mg PO Q4HP PRN PRN Reason: Pain scale 2-4 (Mild) Last Admin: 06/21/20 20:56 Dose: 500 mg Documented by: Amoxicillin/Clavulanate Potassium (Amox/K Clav 500 Mg Tab) 500 mg PO BID [facility] Last Admin: 06/22/20 08:42 Dose: 500 mg Documented by: Calcitriol (Calcitrol 0.25 Mcg Cap) 0.5 mcg PO DAILY [facility] Last Admin: 06/22/20 08:42 Dose: 0.5 mcg Documented by: Cholecalciferol (Vitamin D 5,000 Unit Cap) 5,000 unit PO DAILY [facility] Last Admin: 06/22/20 08:42 Dose: 5,000 unit Documented by: Dextrose/Water (Dextrose In Water (1-Liter)) 1,000 mls @ 100 mls/hr IV .Q10H [facility] Last Admin: 06/22/20 17:25 Dose: 1,000 mls Documented by: Pantoprazole Sodium 80 mg/ (Sodium Chloride) 250 mls @ 25 mls/hr IV Q10H [facility]; Protocol Last Admin: 06/22/20 10:57 Dose: 250 mls Documented by: Methylprednisolone Sodium Succinate (Methylprednisolone 125 Mg Inj) 60 mg IV Q12HR [facility] Last Admin: 06/22/20 08:43 Dose: 60 mg Documented by: Multivitamins/Minerals (Multivitamin Tab) 1 tab PO DAILY [facility] Last Admin: 06/22/20 08:42 Dose: 1 tab Documented by: Nutritional Formula (Ensure Enlive 237 Ml Can) 237 ml PO BID [facility] Ondansetron HCl (Ondansetron 4 Mg/2 Ml Vial) 4 mg IV Q6HP PRN PRN Reason: NAUSEA / VOMITING Sodium Chloride (Flush Normal Saline 10 Ml) 10 ml IV BID [facility] Last Admin: 06/22/20 08:43 Dose: 10 ml Documented by: Sodium Chloride (Sodium Chloride 0.9% 10ml Inj) 10 ml IV UD PRN PRN Reason: Diluant Thiamine HCl (Thiamine 200 Mg/2 Ml Inj) 100 mg IVP DAILY [facility] Last Admin: 06/22/20 08:42 Dose: 100 mg Documented by: Microbiology Results 06/19/20 00:28 Catheterized Urine [place] Count - Final >100,000 CFU/ML. 06/19/20 00:28 Catheterized Urine - Final Escherichia Coli Enterococcus Faecalis Assessment/ Plan: Nephrology No acute cardiac or pulmonary complaints. No CP or SOB. No acute events overnight. Vitals, medications, blood work and imaging reviewed in the chart. NAD. MMM. Neck supple. CTA. RRR. Soft Abd. No C/C/E. No rash. AAO. Normal Speech. A/P: Continue the current POC and Medications other than the changes listed. AM Labs PRN. Recommend daily weight. Please see the orders for complete details. PRAVEEN likely hypovolemia CKD IV -Change IVF D5W Hypernatremia -Change IVF D5W Acidosis Hypocalcemia -Continue Calcitriol DM II with CKD -Monitor BG Moderate malnutrition -Encourage nutrition -Continue MVI Anemia in chronic illness -Monitor H&H -Transfuse PRBC as needed -Consider Retacrit Case reviewed with Dr. Walter
[2020-06-22 21:00] LABS: Potassium 3.1 mmol/L (3.5-5.1)
[2020-06-22] MEDS: ACETAMINOPHEN 500 MG TAB PO PRN (21:35)
[2020-06-22] MEDS: ENSURE ENLIVE 237 ML CAN PO SCH (21:38)
[2020-06-22] MEDS: KCL 20 MEQ/100 mL IVPB 20 MEQ/100 ML BAG IV SCH (23:50)
[2020-06-23] MEDS: KCL 20 MEQ/100 mL IVPB 20 MEQ/100 ML BAG IV SCH (01:06)
[2020-06-23 05:53] LABS: Absolute Lymphocytes (CBC) 0.3 K/uL (0.7-4.9); Basophils % 0.2 % (0-1.3); Hematocrit 30.3 % (36.0-45.0); Lymphocytes % 1.9 % (15.3-44.8); MPV 9.2 fL (7.6-11.3); RBC Red Blood Cell Count 3.48 M/uL (3.86-4.86)
[2020-06-23 06:12] LABS: Albumin 2.3 g/dL (3.4-5.0); Bilirubin Total 0.9 mg/dL (0.2-1.0); Magnesium 1.5 mg/dL (1.8-2.4); Phosphorus 3.1 mg/dL (2.5-4.9); Potassium 4.2 mmol/L (3.5-5.1); Protein, Total 5.3 g/dL (6.4-8.2)
[2020-06-23] MEDS: D5W 1,000 ML IV SCH ×2 (06:14→16:28)
[2020-06-23] MEDS: ENSURE ENLIVE 237 ML CAN PO SCH ×3 (09:00→22:00)
[2020-06-23] MEDS: VITAMIN D 5,000 UNIT CAP PO SCH (09:26)
[2020-06-23] MEDS: AMOX/K CLAV 500 MG TAB PO SCH ×2 (09:26→21:59)
[2020-06-23] MEDS: PANTOPRAZOLE INJ 80 MG in NA CHLORIDE 0.9% 250 ML IV SCH ×2 (09:26→18:34)
[2020-06-23] MEDS: CALCITROL 0.25 MCG CAP PO SCH (09:26)
[2020-06-23] MEDS: MULTIVITAMIN TAB PO SCH (09:26)
[2020-06-23] MEDS: THIAMINE 200 MG/2 ML INJ IVP SCH (09:27)
[2020-06-23] MEDS: METHYLPREDNISOLONE 125 MG INJ IV SCH ×2 (09:27→21:59)
[2020-06-23] MEDS ORDERED: ALBUTEROL INHALER 60 PUFF/8 GM IH PRN (16:57)
[2020-06-23] MEDS: METOPROLOL TAR 50 MG TAB PO SCH (17:53)
[2020-06-23] MEDS: NYSTATIN 500,000 UNIT/5 ML UDC PO SCH ×2 (17:54→21:59)
[2020-06-23] MEDS: FLUCONAZOLE 200mg IVPB 200 MG/100 ML BAG IV SCH (18:34)
--- NOTE | 2020-06-23 20:57 | P.PN ---
Date of Service: 06/23/20 Vital Signs Temp Pulse Resp BP Pulse Ox 97.4 F 106 H 23 H 171/84 H 94 06/23/20 16:00 06/23/20 17:53 06/23/20 16:00 06/23/20 17:53 06/23/20 16:00 Medications Acetaminophen (Acetaminophen 500 Mg Tab) 500 mg PO Q4HP PRN PRN Reason: Pain scale 2-4 (Mild) Last Admin: 06/22/20 21:35 Dose: 500 mg Documented by: Albuterol Sulfate (Albuterol Inhaler 60 Puff/8 Gm) 2 puff IH PRN PRN PRN Reason: SHORTNESS OF BREATH Amoxicillin/Clavulanate Potassium (Amox/K Clav 500 Mg Tab) 500 mg PO BID [facility] Last Admin: 06/23/20 09:26 Dose: 500 mg Documented by: Apixaban (Apixaban 5 Mg Tablet) 5 mg PO BID [facility] Aspirin (Aspirin 81 Mg Chewable Tablet) 81 mg PO DAILY [facility] Atorvastatin Calcium (Atorvastatin 40 Mg Tab) 40 mg PO DAILY [facility] Calcitriol (Calcitrol 0.25 Mcg Cap) 0.5 mcg PO DAILY [facility] Last Admin: 06/23/20 09:26 Dose: 0.5 mcg Documented by: Cholecalciferol (Vitamin D 5,000 Unit Cap) 5,000 unit PO DAILY [facility] Last Admin: 06/23/20 09:26 Dose: 5,000 unit Documented by: Home Med (Budesonide/Formoterol Fumarate [Symbicort 80-4.5 Mcg Inhaler]) 2 puff IH DAILY [facility] Home Med (Linagliptin [Tradjenta]) 1 tab PO DAILY [facility] Dextrose/Water (Dextrose In Water (1-Liter)) 1,000 mls @ 100 mls/hr IV .Q10H [facility] Last Admin: 06/23/20 16:28 Dose: 1,000 mls Documented by: Pantoprazole Sodium 80 mg/ (Sodium Chloride) 250 mls @ 25 mls/hr IV Q10H [facility]; Protocol Last Admin: 06/23/20 18:34 Dose: 250 mls Documented by: Fluconazole (Diflucan 200 Mg/100 Ml Ivpb (Premix)) 200 mg in 100 mls @ 100 mls/hr IV Q24H [facility]; Protocol Last Admin: 06/23/20 18:34 Dose: 100 mls Documented by: Methylprednisolone Sodium Succinate (Methylprednisolone 125 Mg Inj) 60 mg IV Q12HR [facility] Last Admin: 06/23/20 09:27 Dose: 60 mg Documented by: Metoprolol Tartrate (Metoprolol Tar 50 Mg Tab) 50 mg PO BID 6AM 6PM [facility] Last Admin: 06/23/20 17:53 Dose: 50 mg Documented by: Multivitamins/Minerals (Multivitamin Tab) 1 tab PO DAILY [facility] Last Admin: 06/23/20 09:26 Dose: 1 tab Documented by: Nutritional Formula (Ensure Enlive 237 Ml Can) 237 ml PO BID [facility] Last Admin: 06/23/20 09:00 Dose: Not Given Documented by: Nystatin (Nystatin 500,000 Unit/5 Ml Udc) 500,000 unit PO QID [facility] Last Admin: 06/23/20 17:54 Dose: 500,000 unit Documented by: Ondansetron HCl (Ondansetron 4 Mg/2 Ml Vial) 4 mg IV Q6HP PRN PRN Reason: NAUSEA / VOMITING Sodium Chloride (Flush Normal Saline 10 Ml) 10 ml IV BID [facility] Last Admin: 06/23/20 09:00 Dose: 10 ml Documented by: Sodium Chloride (Sodium Chloride 0.9% 10ml Inj) 10 ml IV UD PRN PRN Reason: Diluant Thiamine HCl (Thiamine 200 Mg/2 Ml Inj) 100 mg IVP DAILY [facility] Last Admin: 06/23/20 09:27 Dose: 100 mg Documented by: Microbiology Results 06/19/20 00:28 Catheterized Urine [place] Count - Final >100,000 CFU/ML. 06/19/20 00:28 Catheterized Urine - Final Escherichia Coli Enterococcus Faecalis Assessment/ Plan: Nephrology No acute cardiac or pulmonary complaints. No CP or SOB. No acute events overnight. Son reports they are considering hospice. Vitals, medications, blood work and imaging reviewed in the chart. NAD. MMM. Neck supple. CTA. RRR. Soft Abd. No C/C/E. No rash. AAO. Normal Speech. A/P: Continue the current POC and Medications other than the changes listed. AM Labs PRN. Recommend daily weight. Please see the orders for complete details. PRAVEEN likely hypovolemia CKD IV -Continue IVF D5W Hypernatremia -Continue IVF D5W Acidosis Hypocalcemia -Continue Calcitriol DM II with CKD -Monitor BG Moderate malnutrition -Encourage nutrition -Continue MVI Anemia in chronic illness -Monitor H&H -Transfuse PRBC as needed -Consider Retacrit
[2020-06-23] MEDS: APIXABAN 5 MG TABLET PO SCH (21:59)
[2020-06-24] MEDS: METOPROLOL TAR 50 MG TAB PO SCH ×2 (05:53→17:08)
[2020-06-24] MEDS: PANTOPRAZOLE INJ 80 MG in NA CHLORIDE 0.9% 250 ML IV SCH ×3 (05:53→17:06)
[2020-06-24] MEDS: D5W 1,000 ML IV SCH ×3 (06:01→17:06)
[2020-06-24 08:43] VITALS: O2SAT 93
[2020-06-24] MEDS: THIAMINE 200 MG/2 ML INJ IVP SCH (08:53)
[2020-06-24] MEDS: METHYLPREDNISOLONE 125 MG INJ IV SCH (08:53)
[2020-06-24] MEDS: VITAMIN D 5,000 UNIT CAP PO SCH (08:53)
[2020-06-24] MEDS: AMOX/K CLAV 500 MG TAB PO SCH (08:53)
[2020-06-24] MEDS: APIXABAN 5 MG TABLET PO SCH (08:54)
[2020-06-24] MEDS: CALCITROL 0.25 MCG CAP PO SCH (08:54)
[2020-06-24] MEDS: ENSURE ENLIVE 237 ML CAN PO SCH ×2 (08:54→09:00)
[2020-06-24] MEDS: MULTIVITAMIN TAB PO SCH (08:54)
[2020-06-24] MEDS: NYSTATIN 500,000 UNIT/5 ML UDC PO SCH ×3 (08:56→17:08)
[2020-06-24] MEDS ORDERED: Budesonide/Formoterol Fumarate [Symbicort 80-4.5 Mcg Inhaler] 10.2 GM H IH SCH (09:00)
[2020-06-24] MEDS ORDERED: CHLORTHALIDONE 25 MG TAB PO SCH (09:00)
[2020-06-24] MEDS ORDERED: Linagliptin [Tradjenta] 5 MG Tablet PO SCH (09:00)
[2020-06-24] MEDS ORDERED: ATORVASTATIN 40 MG TAB PO SCH (09:00)
[2020-06-24] MEDS ORDERED: ASPIRIN 81 MG CHEWABLE TABLET PO SCH (09:00)
--- NOTE | 2020-06-24 10:17 | P.PN ---
Date of Service: 06/24/20 Vital Signs Temp Pulse Resp BP Pulse Ox 97.3 F 88 20 143/73 H 93 06/24/20 04:00 06/24/20 05:53 06/24/20 04:00 06/24/20 05:53 06/24/20 04:00 Medications Acetaminophen (Acetaminophen 500 Mg Tab) 500 mg PO Q4HP PRN PRN Reason: Pain scale 2-4 (Mild) Last Admin: 06/22/20 21:35 Dose: 500 mg Documented by: Albuterol Sulfate (Albuterol Inhaler 60 Puff/8 Gm) 2 puff IH PRN PRN PRN Reason: SHORTNESS OF BREATH Amoxicillin/Clavulanate Potassium (Amox/K Clav 500 Mg Tab) 500 mg PO BID [facility] Last Admin: 06/24/20 08:53 Dose: 500 mg Documented by: Apixaban (Apixaban 5 Mg Tablet) 5 mg PO BID [facility] Last Admin: 06/24/20 08:54 Dose: 5 mg Documented by: Aspirin (Aspirin 81 Mg Chewable Tablet) 81 mg PO DAILY [facility] Last Admin: 06/24/20 08:53 Dose: 81 mg Documented by: Atorvastatin Calcium (Atorvastatin 40 Mg Tab) 40 mg PO DAILY [facility] Last Admin: 06/24/20 08:53 Dose: 40 mg Documented by: Calcitriol (Calcitrol 0.25 Mcg Cap) 0.5 mcg PO DAILY [facility] Last Admin: 06/24/20 08:54 Dose: 0.5 mcg Documented by: Cholecalciferol (Vitamin D 5,000 Unit Cap) 5,000 unit PO DAILY [facility] Last Admin: 06/24/20 08:53 Dose: 5,000 unit Documented by: Home Med (Budesonide/Formoterol Fumarate [Symbicort 80-4.5 Mcg Inhaler]) 2 puff IH DAILY [facility] Last Admin: 06/24/20 08:54 Dose: Not Given Documented by: Home Med (Linagliptin [Tradjenta]) 1 tab PO DAILY [facility] Last Admin: 06/24/20 08:55 Dose: Not Given Documented by: Dextrose/Water (Dextrose In Water (1-Liter)) 1,000 mls @ 100 mls/hr IV .Q10H [facility] Last Admin: 06/24/20 06:01 Dose: 1,000 mls Documented by: Pantoprazole Sodium 80 mg/ (Sodium Chloride) 250 mls @ 25 mls/hr IV Q10H [facility]; Protocol Last Admin: 06/24/20 05:53 Dose: 250 mls Documented by: Fluconazole (Diflucan 200 Mg/100 Ml Ivpb (Premix)) 200 mg in 100 mls @ 100 mls/hr IV Q24H [facility]; Protocol Last Admin: 06/23/20 18:34 Dose: 100 mls Documented by: Methylprednisolone Sodium Succinate (Methylprednisolone 125 Mg Inj) 60 mg IV Q12HR [facility] Last Admin: 06/24/20 08:53 Dose: 60 mg Documented by: Metoprolol Tartrate (Metoprolol Tar 50 Mg Tab) 50 mg PO BID 6AM 6PM [facility] Last Admin: 06/24/20 05:53 Dose: 50 mg Documented by: Multivitamins/Minerals (Multivitamin Tab) 1 tab PO DAILY [facility] Last Admin: 06/24/20 08:54 Dose: 1 tab Documented by: Nutritional Formula (Ensure Enlive 237 Ml Can) 237 ml PO BID [facility] Last Admin: 06/24/20 09:00 Dose: Not Given Documented by: Nystatin (Nystatin 500,000 Unit/5 Ml Udc) 500,000 unit PO QID [facility] Last Admin: 06/24/20 08:56 Dose: 500,000 unit Documented by: Ondansetron HCl (Ondansetron 4 Mg/2 Ml Vial) 4 mg IV Q6HP PRN PRN Reason: NAUSEA / VOMITING Sodium Chloride (Flush Normal Saline 10 Ml) 10 ml IV BID [facility] Last Admin: 06/24/20 08:55 Dose: 10 ml Documented by: Sodium Chloride (Sodium Chloride 0.9% 10ml Inj) 10 ml IV UD PRN PRN Reason: Diluant Thiamine HCl (Thiamine 200 Mg/2 Ml Inj) 100 mg IVP DAILY [facility] Last Admin: 06/24/20 08:53 Dose: 100 mg Documented by: Microbiology Results 06/19/20 00:28 Catheterized Urine Swoope Count - Final >100,000 CFU/ML. 06/19/20 00:28 Catheterized Urine - Final Escherichia Coli Enterococcus Faecalis Assessment/ Plan: Nephrology No acute cardiac or pulmonary complaints. No CP or SOB. No acute events overnight. Vitals, medications, blood work and imaging reviewed in the chart. NAD. MMM. Neck supple. CTA. RRR. Soft Abd. No C/C/E. No rash. AAO. Normal Speech. A/P: Continue the current POC and Medications other than the changes listed. AM Labs PRN. Recommend daily weight. Please see the orders for complete details. PRAVEEN likely hypovolemia CKD IV -Continue IVF D5W; May be able to discontinue IVF soon. Hypernatremia -Continue IVF D5W Acidosis Hypocalcemia -Continue Calcitriol Hypomagnesemia -Start Slo-mag DM II with CKD -Monitor BG Moderate malnutrition -Encourage nutrition and hydration -Continue MVI Anemia in chronic illness -Monitor H&H -Transfuse PRBC as needed -Consider Retacrit Possible hospice placement.
[2020-06-24] MEDS ORDERED: MAGNESIUM CHLORIDE 64 MG TAB PO SCH (11:00)
--- NOTE | 2020-06-24 11:04 | P.PN ---
Date of Service: 06/22/20 Subjective Patient is more awake and alert. Patient denies any new complaints. She is not really want to participate with physical therapy. Her appetite is very diminished. She has some ulcerations in her mouth but no evidence of oropharyngeal candidiasis. Will go ahead and get her some Chloraseptic spray. Will do nystatin solution as well Review of Systems 10-point ROS is otherwise unremarkable Physical Examination - Vital Signs Reviewed - Physical Exam General: Alert, In no apparent distress, Oriented x2, Confused Respiratory: Diminished, Expiratory wheezes Cardiovascular: Regular rate/rhythm, Normal S1 S2, Systolic murmur Gastrointestinal: Normal bowel sounds, Soft and benign, Non-distended, No tenderness Musculoskeletal: No clubbing, No tenderness, Swelling Neurological: Sensation intact, Cranial nerves 3-12 intact, Abnormal strength Assessment & Plan - Problems (Diagnosis) (1) Upper GI bleeding Current Visit: Yes Status: Acute (2) Acute renal failure Onset Date: ~06/19/20 Current Visit: Yes Status: Acute Qualifiers: Acute renal failure type: unspecified Qualified Code(s): N17.9 - Acute kidney failure, unspecified (3) Hypotension Onset Date: ~06/19/20 Current Visit: Yes Status: Acute Qualifiers: Hypotension type: idiopathic hypotension Qualified Code(s): I95.0 - Idiopathic hypotension (4) COPD (chronic obstructive pulmonary disease) Current Visit: No Status: Acute (5) Hyponatremia Current Visit: No Status: Resolved (6) Adrenal insufficiency Current Visit: Yes Status: Acute - Plan Continue with plan of care as mentioned below 1. Continue with gentle hydration; change Protonix to p.o. twice a day 2. Change antibiotics to oral antibiotics 3. Continue with pain control 4. Advanced diet as tolerated 5. Appreciate Nephrology consultation 6. Family considering home health versus hospice care at this time 7. GI and DVT prophylaxis
--- NOTE | 2020-06-24 11:11 | P.PN ---
Date of Service: 06/23/20 Subjective Patient not really eating; spoke with son and patient is probably going to end up going home under hospice care Review of Systems 10-point ROS is otherwise unremarkable Physical Examination - Vital Signs Reviewed - Physical Exam General: Alert, In no apparent distress, Oriented x3 Respiratory: Diminished, Expiratory wheezes Cardiovascular: Regular rate/rhythm, Normal S1 S2, Systolic murmur Gastrointestinal: Normal bowel sounds, Soft and benign, Non-distended, No tenderness Musculoskeletal: No clubbing, No tenderness, Swelling Neurological: Sensation intact, Cranial nerves 3-12 intact, Abnormal strength Assessment & Plan - Problems (Diagnosis) (1) Upper GI bleeding Current Visit: Yes Status: Acute (2) Acute renal failure Onset Date: ~06/19/20 Current Visit: Yes Status: Acute Qualifiers: Acute renal failure type: unspecified Qualified Code(s): N17.9 - Acute kidney failure, unspecified (3) Hypotension Onset Date: ~06/19/20 Current Visit: Yes Status: Acute Qualifiers: Hypotension type: idiopathic hypotension Qualified Code(s): I95.0 - Idiopathic hypotension (4) COPD (chronic obstructive pulmonary disease) Current Visit: No Status: Acute (5) Hyponatremia Current Visit: No Status: Resolved (6) Adrenal insufficiency Current Visit: Yes Status: Acute - Plan Continue with plan of care as mentioned below 1. Arrange for hospice care; Heplock IV; change Protonix to p.o. twice a day 2. Change antibiotics to oral antibiotics 3. Continue with pain control 4. Advanced diet as tolerated 5. Appreciate Nephrology consultation 6. Family to proceed with hospice care at this time 7. GI and DVT prophylaxis
--- NOTE | 2020-06-24 11:14 | P.DS ---
Discharge Date: 06/24/20 Disposition: HOSPICE-HOME Discharge Condition: GOOD Consultations: Nephrology - Problems (1) Upper GI bleeding Current Visit: Yes Status: Acute (2) Acute renal failure Onset Date: ~06/19/20 Current Visit: Yes Status: Acute Qualifiers: Acute renal failure type: unspecified Qualified Code(s): N17.9 - Acute kidney failure, unspecified (3) Hypotension Onset Date: ~06/19/20 Current Visit: Yes Status: Acute Qualifiers: Hypotension type: idiopathic hypotension Qualified Code(s): I95.0 - Idiopathic hypotension (4) COPD (chronic obstructive pulmonary disease) Current Visit: No Status: Acute (5) Hyponatremia Current Visit: No Status: Resolved (6) Adrenal insufficiency Current Visit: Yes Status: Acute Brief History of Present Illness: Patient is a 75-year-old female came to the hospital with an acute GI bleed. Patient was started on PPI drip and IV fluids. Patient was also in acute renal failure. Patient has significant uremia most likely related to a combination of over diuresing as well as GI bleeding. Patient was admitted to the hospital for further evaluation. Hospital Course: Patient improved during hospitalization. Renal function has improved. GI bleeding resolved. Hemoglobin has been stable. Spoke with family and they he states that thumb on has been declining and not really participating well. At this time, will proceed with discharge to hospice care. If she does improve they will discontinue hospice going forward. Vital Signs/Physical Exam: Temp Pulse Resp BP Pulse Ox 98.4 F 93 H 22 H 142/72 H 95 06/24/20 08:00 06/24/20 08:00 06/24/20 08:00 06/24/20 08:00 06/24/20 08:00 General: Alert, In no apparent distress, Oriented x3 Laboratory Data at Discharge: WBC 14.70 K/uL (4.3-10.9) H 06/23/20 05:17 Hgb 9.8 g/dL (12.0-15.0) L 06/23/20 05:17 Hct 30.3 % (36.0-45.0) L 06/23/20 05:17 Plt Count 197 K/uL (152-406) 06/23/20 05:17 PT 20.6 SECONDS (9.5-12.5) H 06/18/20 22:05 INR 1.78 06/18/20 22:05 Sodium 143 mmol/L (136-145) 06/23/20 05:17 Potassium 4.2 mmol/L (3.5-5.1) 06/23/20 05:17 BUN 64 mg/dL (7-18) H 06/23/20 05:17 Creatinine 1.92 mg/dL (0.55-1.3) H 06/23/20 05:17 Glucose 246 mg/dL (74-106) H 06/23/20 05:17 Phosphorus 3.1 mg/dL (2.5-4.9) 06/23/20 05:17 Magnesium 1.5 mg/dL (1.8-2.4) L 06/23/20 05:17 Total Bilirubin 0.9 mg/dL (0.2-1.0) 06/23/20 05:17 AST 13 U/L (15-37) L 06/23/20 05:17 ALT 15 U/L (12-78) 06/23/20 05:17 Alkaline Phosphatase 57 U/L (45-117) 06/23/20 05:17 Troponin I 0.08 ng/mL (0.0-0.045) H 06/19/20 11:20 Home Medications: Aspirin 1 tab PO DAILY 06/06/20 Atorvastatin Calcium [Lipitor] 1 tab PO DAILY 06/06/20 Linagliptin [Tradjenta] 1 tab PO DAILY 06/06/20 Apixaban [Eliquis] 5 mg PO BID #60 tablet 06/12/20 Albuterol Inhaler [Ventolin Inhaler*] 2 puff IH PRN PRN 06/20/20 Budesonide/Formoterol Fumarate [Symbicort 80-4.5 Mcg Inhaler] 2 puff IH DAILY 06/20/20 Chlorthalidone 1 tab PO DAILY 06/20/20 Lisinopril [Zestril] 1 tab PO BID 06/20/20 Metoprolol Tartrate [Lopressor*] 50 mg PO BID 6AM 6PM 06/20/20 cloNIDine HCL [Catapres*] 1 tab PO TID 06/20/20 Physician Discharge Instructions: OK TO DC IV AND DC HOME FOLLOW-UP WITH PRIMARY CARE PROVIDER IN 1-2 WEEKS FOLLOW-UP WITH Pulmonary IN 1-2 WEEKS RETURN TO THE ER IF symptoms worsen CALL or TEXT DR. WALL AT [phone] IF ANY QUESTIONS REGARDING HOSPITAL STAY. PLEASE CALL THE FLOOR AT [phone] IF ANY MEDICATION OR NURSING QUESTIONS. Diet: AHA Activity: Fall precautions Followup: Unknown,U [Primary Care Provider] - Time spent managing pt's care (in minutes): 35
[2020-06-24] MEDS ORDERED: INSULIN 70/30 100 UNITS/ML SQ ONE (16:12)
[2020-06-24] MEDS ORDERED: D50W 25 GM/50 ML SYRINGE IV PRN (16:12)
[2020-06-24] MEDS ORDERED: GLUCAGON 1 MG/VIAL IM PRN (16:12)
[2020-06-24] MEDS: FLUCONAZOLE 200mg IVPB 200 MG/100 ML BAG IV SCH (17:07)
[2020-06-24 17:09] VITALS: BP 168/78
[2020-06-24 17:52] VITALS: TEMP 98.1
== END 2020-06-24 20:20 | disposition hospice, home (50) | DRG 698 ==
LOC: ER 20:18 → ERHOLD 06-19 01:49 → 2ND 06-19 12:20 → ERHOLD 06-19 12:20 → 2ND 06-20 12:28
PROVIDERS: ADMIT Hospitalist; ATTEND Hospitalist
PROC: 30233N1 Transfusion of Nonautologous Red Blood Cells into Peripheral Vein, Percutaneous Approach (ICD-10-PCS; principal; 2020-06-19)
DX: T83.511A Infection and inflammatory reaction due to indwelling urethral catheter, initial encounter (principal); A41.9 Sepsis, unspecified organism; G92 Toxic encephalopathy; K92.2 Gastrointestinal hemorrhage, unspecified; N17.9 Acute kidney failure, unspecified; I13.0 Hypertensive heart and chronic kidney disease with heart failure and stage 1 through stage 4 chronic kidney disease, or unspecified chronic kidney disease; I50.32 Chronic diastolic (congestive) heart failure; N18.4 Chronic kidney disease, stage 4 (severe); E87.1 Hypo-osmolality and hyponatremia; E27.40 Unspecified adrenocortical insufficiency; E87.2 Acidosis; E44.0 Moderate protein-calorie malnutrition; E87.0 Hyperosmolality and hypernatremia; N39.0 Urinary tract infection, site not specified; E11.22 Type 2 diabetes mellitus with diabetic chronic kidney disease; D63.1 Anemia in chronic kidney disease; I95.0 Idiopathic hypotension; E83.51 Hypocalcemia; N28.89 Other specified disorders of kidney and ureter; I48.0 Paroxysmal atrial fibrillation; E83.42 Hypomagnesemia; J43.9 Emphysema, unspecified; E78.5 Hyperlipidemia, unspecified; E86.0 Dehydration; L98.499 Non-pressure chronic ulcer of skin of other sites with unspecified severity; I25.10 Atherosclerotic heart disease of native coronary artery without angina pectoris; Z79.899 Other long term (current) drug therapy; Z68.22 Body mass index [BMI] 22.0-22.9, adult; Z79.82 Long term (current) use of aspirin; Z79.51 Long term (current) use of inhaled steroids; Z79.01 Long term (current) use of anticoagulants; Z79.52 Long term (current) use of systemic steroids; Z87.891 Personal history of nicotine dependence; Z79.890 Hormone replacement therapy; Z20.822 Contact with and (suspected) exposure to COVID-19
CPT/HCPCS: 36415; 36430; 71045; 74176; 80048; 80053; 80076; 81003; 81015; 82947; 83605; 83735; 83880; 84100; 84145; 84484; 85014; 85018; 85025; 85610; 86850; 86900; 86901; 87070; 87075; 87077; 87086; 87088; 87186; 87205; 93005; 96361; 96374; 97161; 97530; 99285; C9113; J0696; J1450; J1644; J1815; J2543; J2930; J3411; J3480; J7030; J7040; J7042; J7050; J7512; J7799; P9016; P9040; P9047; U0003